=== PATIENT | male | born 1980 | race African-American/Black ===

== ENCOUNTER 2018-05-23 12:48 | Inpatient (IN) | payer MEDICAID ==
[~2018-05-23] VITALS: Ht 193 cm; Wt 135.7 kg
[2018-05-23] MEDS ORDERED: INDOCIN75 MG ORAL (12:59)
[2018-05-23] MEDS ORDERED: JANUVIA25 MG ORAL (12:59)
[2018-05-23] MEDS ORDERED: LISINOPRIL20 MG ORAL (12:59)
[2018-05-23] MEDS ORDERED: GABAPENTIN600 MG ORAL (12:59)
[2018-05-23] MEDS ORDERED: HYDRALAZINE HCL50 MG ORAL (12:59)
[2018-05-23] MEDS ORDERED: METOPROLOL TAR100 MG ORAL (12:59)
[2018-05-23] MEDS ORDERED: TRIAMTERENE-HC1 EAC6 ORAL (12:59)
[2018-05-23 13:02] VITALS: BP 122/70
[2018-05-23] MEDS ORDERED: Meclizine 25mg tab ORAL ONE (13:30)
[2018-05-23 13:34] LABS: EOSINOPHILS % (AUTO) 0.6 % (0.0-3.0); HEMATOCRIT 33.6 % (42.0-52.0); HEMOGLOBIN 11.2 G/DL (14.2-18.0); LYMPHOCYTES % (AUTO) 27.1 % (20.0-45.0); MEAN CORPUSCULAR VOLUME 87 FL (80-99); NEUTROPHILS % (AUTO) 64.3 % (45.0-75.0); PLATELET COUNT 356 K/UL (150-450); RED BLOOD COUNT 3.84 M/UL (4.70-6.10); RED CELL DISTRIBUTION WIDTH 12.2 % (11.6-14.8); WHITE BLOOD COUNT 7.8 K/UL (4.8-10.8)
--- NOTE | 2018-05-23 13:44 | Diagnostic Imaging Report ---
Indication: Dyspnea Comparison: None A single view chest radiograph was obtained. Findings: Cardiomediastinal appearance is within normal limits for age. Pulmonary vascularity is appropriate. The diaphragmatic contour is smooth and costophrenic angles are sharp. No pleural effusions are identified. The bones are unremarkable. Impression: No acute findings
[2018-05-23 14:02] LABS: ANION GAP 8 mmol/L (5-15); BLOOD UREA NITROGEN 32 mg/dL (7-18); CALCIUM 8.6 MG/DL (8.5-10.1); CARBON DIOXIDE 29 MMOL/L (21-32); CHLORIDE 105 MMOL/L (98-107); CREATININE 2.5 MG/DL (0.55-1.30); POTASSIUM 4.2 MMOL/L (3.5-5.1); SODIUM 141 MMOL/L (136-145)
--- NOTE | 2018-05-23 14:02 | Emergency Room Report ---
History of Present Illness General Chief Complaint: Dizziness Source: Patient (Azalea Torrez DO) Present Illness HPI This patient presents emergency department at the instruction of his primary care physician, Dr. Severino. The patient has had a week and a half of vertigo- like symptoms. Patient states that he has been "dizzy." He states that the room is spinning. He states that his symptoms are worse when he is standing. He was evaluated last week at [facility] in [place]. He states that he was admitted overnight. He was put on blood pressure medications. He states that the symptoms continued and he followed up with his primary care physician Dr. Severino who sent him to the ED for further evaluation. The patient states he did have some nausea vomiting over 1 weekend but states he has had no further vomiting. He states that he is imbalanced and will run into crain and has gait disturbance. He denies headache. He denies blurry vision. He denies weakness. He denies feeling or numbness. He has no other complaints. (Azalea Torrez DO) Allergies: Coded Allergies: No Known Allergies (Unverified , 05/23/18) Patient History Past Medical History: see triage record, DM, HTN Social History: Denies: smoking, alcohol use, drug use Reviewed Nursing Documentation: PMH: Agreed; PSxH: Agreed (Azalea Torrez DO) Nursing Documentation-PMH Past Medical History: No History, Except For Hx Hypertension: Yes Hx Diabetes: Yes (Azalea Torrez DO) Review of Systems All Other Systems: negative except mentioned in HPI (Azalea TorrezJoseph ) Physical Exam Vital Signs Date Time Temp Pulse Resp B/P (MAP) Pulse Ox O2 Delivery O2 Flow Rate FiO2 05/23/18 12:53 98.3 80 18 122/70 95 Room Air 98.2 Sp02 EP Interpretation: reviewed, normal General Appearance: no apparent distress, alert, GCS 15, non-toxic Head: normocephalic, atraumatic Eyes: bilateral eye normal inspection, bilateral eye PERRL ENT: hearing grossly normal, normal pharynx, no angioedema, normal voice Neck: full range of motion, supple/symm/no masses Respiratory: chest non-tender, lungs clear, normal breath sounds, no respiratory distress, no retraction, no accessory muscle use, speaking full sentences Cardiovascular #1: regular rate, rhythm, no edema Gastrointestinal: normal bowel sounds, non tender, soft, non-distended, no guarding, no rebound Rectal: deferred Musculoskeletal: back normal, gait/station normal, normal range of motion, non- tender, calf tenderness Neurologic: alert, oriented x3, responsive, motor strength/tone normal, sensory intact, speech normal Psychiatric: judgement/insight normal, memory normal, mood/affect normal, no suicidal/homicidal ideation Skin: normal color, no rash, warm/dry, well hydrated (Azalea Torrez DO) Medical Decision Making Diagnostic Impression: Primary Impression: Vertigo Additional Impressions: Basal ganglia infarction Renal insufficiency ER Course This patient has a physical exam at presentation consistent with vertigo. Other considerations include labyrinthitis, Mnire's disease, central vertigo. The patient's symptoms are short and episodic and have been positional. Given the length of symptoms, I did obtain an MRI brain which is pending at the time of this dictation. Pt turned over to Dr. Randhawa Laboratory Tests Test 05/23/18 13:16 White Blood Count 7.8 K/UL (4.8-10.8) Red Blood Count 3.84 M/UL (4.70-6.10) L Hemoglobin 11.2 G/DL (14.2-18.0) L Hematocrit 33.6 % (42.0-52.0) L Mean Corpuscular Volume 87 FL (80-99) Mean Corpuscular Hemoglobin 29.2 PG (27.0-31.0) Mean Corpuscular Hemoglobin Concent 33.4 G/DL (32.0-36.0) Red Cell Distribution Width 12.2 % (11.6-14.8) Platelet Count 356 K/UL (150-450) Mean Platelet Volume 5.5 FL (6.5-10.1) L Neutrophils (%) (Auto) 64.3 % (45.0-75.0) Lymphocytes (%) (Auto) 27.1 % (20.0-45.0) Monocytes (%) (Auto) 7.0 % (1.0-10.0) Eosinophils (%) (Auto) 0.6 % (0.0-3.0) Basophils (%) (Auto) 1.0 % (0.0-2.0) Sodium Level 141 MMOL/L (136-145) Potassium Level 4.2 MMOL/L (3.5-5.1) Chloride Level 105 MMOL/L (98-107) Carbon Dioxide Level 29 MMOL/L (21-32) Anion Gap 8 mmol/L (5-15) Blood Urea Nitrogen 32 mg/dL (7-18) H Creatinine 2.5 MG/DL (0.55-1.30) H Estimate Glomerular Filtration Rate 35.8 mL/min (>60) Glucose Level 84 MG/DL (74-106) Calcium Level 8.6 MG/DL (8.5-10.1) Total Bilirubin Pending Aspartate Amino Transferase (AST) Pending Alanine Aminotransferase (ALT) Pending Alkaline Phosphatase Pending Total Creatine Kinase Pending Creatine Kinase MB Pending Troponin I 0.006 ng/mL (0.000-0.056) Total Protein Pending Albumin Pending Globulin Pending (Azalea Torrez DO) ER Course Hospital Course 37-year-old male presents ED with dizziness times one week Clinical course Patient initially seen and evaluated by Dr Veronica; please see her note for full history and physical labs reviewed- Cr 2.5, troponins negative, no leukocytosis, Hb/Hct stable MRI Brain - acute CVA R basal ganglia Discussed findings with the patient. Patient states he's been having dizziness times one week. Admitted last week to [facility] and discharged after 1 day. She notes no slurred speech or facial droop or motor weakness. Stroke scale is 0. Discussed case with stroke team at [facility]; they agree that this is not large vessel disease and patient is out of window for thrombolytic therapy given symptoms started 6 days ago Discussed case with PMD Dr. Chip Casillas; he agrees that patient should be admitted Given aspirin in ED. Case discussed with Dr. Delarosa and he agreed to accept the patient to his service for further care and support I. I feel this is a highly complex case requiring extensive working including EKG/Rhythm strip, Xray/CT/US, Blood/urine lab work, repeat exams while in ED, and administration of strong opiates/narcotics for pain control, admission to hospital or close patient follow up. Diagnosis - vertigo, basal ganglia infarction, renal insufficiency admitted to telemetry in serious condition Labs Test 05/23/18 13:16 05/23/18 13:45 05/23/18 14:34 White Blood Count 7.8 K/UL (4.8-10.8) Red Blood Count 3.84 M/UL (4.70-6.10) Hemoglobin 11.2 G/DL (14.2-18.0) Hematocrit 33.6 % (42.0-52.0) Mean Corpuscular Volume 87 FL (80-99) Mean Corpuscular Hemoglobin 29.2 PG (27.0-31.0) Mean Corpuscular Hemoglobin Concent 33.4 G/DL (32.0-36.0) Red Cell Distribution Width 12.2 % (11.6-14.8) Platelet Count 356 K/UL (150-450) Mean Platelet Volume 5.5 FL (6.5-10.1) Neutrophils (%) (Auto) 64.3 % (45.0-75.0) Lymphocytes (%) (Auto) 27.1 % (20.0-45.0) Monocytes (%) (Auto) 7.0 % (1.0-10.0) Eosinophils (%) (Auto) 0.6 % (0.0-3.0) Basophils (%) (Auto) 1.0 % (0.0-2.0) Sodium Level 141 MMOL/L (136-145) Potassium Level 4.2 MMOL/L (3.5-5.1) Chloride Level 105 MMOL/L (98-107) Carbon Dioxide Level 29 MMOL/L (21-32) Anion Gap 8 mmol/L (5-15) Blood Urea Nitrogen 32 mg/dL (7-18) Creatinine 2.5 MG/DL (0.55-1.30) Estimat Glomerular Filtration Rate 35.8 mL/min (>60) Glucose Level 84 MG/DL (74-106) Calcium Level 8.6 MG/DL (8.5-10.1) Total Bilirubin 0.8 MG/DL (0.2-1.0) Aspartate Amino Transf (AST/SGOT) 23 U/L (15-37) Alanine Aminotransferase (ALT/SGPT) 25 U/L (12-78) Alkaline Phosphatase 69 U/L (46-116) Total Creatine Kinase 282 U/L (26-308) Creatine Kinase MB 3.3 NG/ML (0.0-3.6) Creatine Kinase MB Relative Index 1.1 Troponin I 0.006 ng/mL (0.000-0.056) Total Protein 7.0 G/DL (6.4-8.2) Albumin 3.0 G/DL (3.4-5.0) Globulin 4.0 g/dL Albumin/Globulin Ratio 0.8 (1.0-2.7) Prothrombin Time 10.1 SEC (9.30-11.50) Prothromb Time International Ratio 1.0 (0.9-1.1) Activated Partial Thromboplast Time 27 SEC (23-33) Urine Color Pale yellow Urine Appearance Clear Urine pH 5 (4.5-8.0) Urine Specific [place] 1.015 (1.005-1.035) Urine Protein 4+ (NEGATIVE) Urine Glucose (UA) 1+ (NEGATIVE) Urine Ketones Negative (NEGATIVE) Urine Blood Negative (NEGATIVE) Urine Nitrite Negative (NEGATIVE) Urine Bilirubin Negative (NEGATIVE) Urine Urobilinogen Normal MG/DL (0.0-1.0) Urine Leukocyte Esterase Negative (NEGATIVE) Urine RBC 0-2 /HPF (0 - 0) Urine WBC 2-4 /HPF (0 - 0) Urine Squamous Epithelial Cells None /LPF (NONE/OCC) Urine Amorphous Sediment Few /LPF (NONE) Urine Bacteria Few /HPF (NONE) Urine Opiates Screen Negative (NEGATIVE) Urine Barbiturates Screen Negative (NEGATIVE) Phencyclidine (PCP) Screen Negative (NEGATIVE) Urine Amphetamines Screen Negative (NEGATIVE) Urine Benzodiazepines Screen Negative (NEGATIVE) Urine Cocaine Screen Negative (NEGATIVE) Urine Marijuana (THC) Screen Negative (NEGATIVE) (David Randhawa MD) EKG Diagnostic Results Rate: normal Rhythm: NSR ST Segments: other - NSST (Azalea Torrez DO) Rhythm Strip Diag. Results EP Interpretation: yes Rate: 70 Rhythm: NSR, no PVC's, no ectopy (Azalea Torrez DO) Chest X-Ray Diagnostic Results Chest X-Ray Diagnostic Results : Chest X-Ray Ordered: Yes # of Views/Limited/Complete: 1 View Indication: Other EP Interpretation: No Interpretation: no consolidation, no effusion, no pneumothorax, no acute cardiopulmonary disease Impression: No acute disease Electronically Signed by: Moise (Azalea Torrez DO) CT/MRI/US Diagnostic Results CT/MRI/US Diagnostic Results : Imaging Test Ordered: [facility]/MRI/US Diagnostic Results : Imaging Test Ordered: MRI Impression Acute CVA demonstrated within right external capsule region/basal ganglia and right cannon radiata as described above. 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 (David Randhawa MD) Last Vital Signs Date Time Temp Pulse Resp B/P (MAP) Pulse Ox O2 Delivery O2 Flow Rate FiO2 05/23/18 13:02 98.2 80 18 122/70 95 Room Air [facility].2 [facility] Status: improved (David Randhawa MD) Disposition: ADMITTED INPATIENT Condition: Serious Referrals: NON PHYSICIAN (PCP) Azalea Torrez Joseph May 23, 2018 14:02 David Randhawa MD May 23, 2018 19:34
[2018-05-23 14:12] LABS: ALANINE AMINOTRANSFERASE 25 U/L (12-78); ALBUMIN/GLOBULIN RATIO 0.8 (1.0-2.7); ALKALINE PHOSPHATASE 69 U/L (46-116); ASPARTATE AMINO TRANSFERASE 23 U/L (15-37); BILIRUBIN,TOTAL 0.8 MG/DL (0.2-1.0); CKMB 3.3 NG/ML (0.0-3.6); CREATINE KINASE 282 U/L (26-308)
[2018-05-23 14:50] LABS: APPEARANCE,URINE CLEAR; BILIRUBIN, URINE NEGATIVE (NEGATIVE); COLOR,URINE PALE YELLOW; GLUCOSE, URINE (UA) 1+ (NEGATIVE); KETONES,URINE NEGATIVE (NEGATIVE); LEUKOCYTE ESTERASE ,URINE NEGATIVE (NEGATIVE); NITRITE,URINE NEGATIVE (NEGATIVE); PH,URINE 5 (4.5-8.0); PROTEIN,URINE 4+ (NEGATIVE); UROBILINOGEN,URINE NORMAL MG/DL (0.0-1.0)
[2018-05-23 15:00] VITALS: BP 141/84
--- NOTE | 2018-05-23 15:30 | Diagnostic Imaging Report ---
Indication: Vertigo and dizziness Technique: The head was imaged in a 1.5 Veronica magnet. Sequences obtained include sagittal and axial T1 FLAIR, axial T2 fast spin echo with fat saturation, axial T2 FLAIR, diffusion and ADC map. Comparison: None 2 areas of diffusion restriction are demonstrated. The first is in the right external capsular region measuring about 1.7 cm. A second focus noted just above this and slightly anteriorly within the cannon radiata also measuring about 1.5 cm. Findings consistent with acute CVA. Correlate clinically. Would also consider demyelinating disease given the patient's age. However, there are other abnormal foci of T2 hyperintense signal within the cannon radiata bilaterally with a focus of ex vacuo dilatation of the right anterior horn of the lateral ventricle with cystic encephalomalacia in the caudate region from indicative of a previous infarct. IMPRESSION: Acute CVA demonstrated within right external capsule region/basal ganglia and right cannon radiata as described above. 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 Nonspecific bilateral white matter signal alteration presumably on the basis of chronic small vessel disease. Given the patient's age, would also consider demyelinating disease.
[2018-05-23 17:12] VITALS: BP 145/85
[2018-05-23] MEDS ORDERED: GABAPENTIN800 MG ORAL (17:17)
[2018-05-23] MEDS ORDERED: LANTUS SOL100 UNIT/1 SUBQ (17:18)
[2018-05-23 19:30] VITALS: BP 172/96
[2018-05-23 20:58] VITALS: BP 161/84
[2018-05-23 21:00] VITALS: BP 140/82
[2018-05-24] VITALS: BP 148/80
[2018-05-24] MEDS: HydrALAZINE 50mg tab ORAL SCH ×4 (00:15→21:57)
[2018-05-24 04:00] VITALS: BP 151/68
[2018-05-24 06:29] LABS: BASOPHILS % (AUTO) 0.9 % (0.0-2.0); EOSINOPHILS % (AUTO) 0.9 % (0.0-3.0); HEMATOCRIT 32.9 % (42.0-52.0); HEMOGLOBIN 11.1 G/DL (14.2-18.0); MEAN CORPUSCULAR VOLUME 88 FL (80-99); MONOCYTES % (AUTO) 8.2 % (1.0-10.0); PLATELET COUNT 336 K/UL (150-450); RED BLOOD COUNT 3.74 M/UL (4.70-6.10); RED CELL DISTRIBUTION WIDTH 12.1 % (11.6-14.8); WHITE BLOOD COUNT 8.5 K/UL (4.8-10.8)
[2018-05-24 06:46] LABS: ALANINE AMINOTRANSFERASE 22 U/L (12-78); ALBUMIN 2.6 G/DL (3.4-5.0); ALBUMIN/GLOBULIN RATIO 0.7 (1.0-2.7); ALKALINE PHOSPHATASE 65 U/L (46-116); ANION GAP 6 mmol/L (5-15); ASPARTATE AMINO TRANSFERASE 18 U/L (15-37); BILIRUBIN,TOTAL 0.8 MG/DL (0.2-1.0); BLOOD UREA NITROGEN 31 mg/dL (7-18); CALCIUM 8.8 MG/DL (8.5-10.1); CARBON DIOXIDE 29 MMOL/L (21-32); CHLORIDE 106 MMOL/L (98-107); CHOLESTEROL 201 MG/DL (< 200); CREATININE 2.2 MG/DL (0.55-1.30); HDL CHOLESTEROL 38 MG/DL (40-60); POTASSIUM 4.2 MMOL/L (3.5-5.1); SODIUM 141 MMOL/L (136-145); TRIGLYCERIDES 167 MG/DL (30-150)
[2018-05-24] MEDS: NovoLOG Insulin Flexpen SUBQ SCH ×4 (07:11→20:40)
[2018-05-24 08:00] VITALS: BP 155/103
--- NOTE | 2018-05-24 08:30 | Consultation ---
DATE OF CONSULTATION: 05/23/2018 CONSULTING PHYSICIAN: Prince Teague M.D. REQUESTING PHYSICIAN: Anthony Delarosa M.D. REASON FOR CONSULTATION: Acute cerebrovascular accident. HISTORY OF PRESENT ILLNESS: This is a 37-year-old male. He has had dizziness and vertiginous symptoms for the past week or two. He was seen in an outside emergency room and was admitted overnight, started on antihypertensives and discharged. Subsequently, he has had nausea, vomiting, and symptoms. He was seen in this emergency room with an abnormal MRI noted. PAST MEDICAL HISTORY: Type 2 diabetes mellitus and hypertension. SOCIAL HISTORY: Negative for smoking, alcohol, or substance abuse. MEDICATIONS: Prior to admission, reviewed and reconciled. ALLERGIES: None known. REVIEW OF SYSTEMS: Otherwise unremarkable. PHYSICAL EXAMINATION: VITAL SIGNS: Obese, blood pressure 122/70, pulse 80, and respiratory rate 18. HEENT: Conjunctivae are pink. Oropharynx clear. NECK: Supple. Jugular venous pressure normal. LUNGS: Clear. CARDIAC: Regular rhythm and rate. Normal S1, S2 with a fourth heart sound. ABDOMEN: Soft, nontender, and moderately obese. EXTREMITIES: With no edema. LABORATORY AND DIAGNOSTIC DATA: White count 7.8 and hemoglobin 11.2. Chemistry panel notable for BUN 32, creatinine 2.5, bicarb 29, sodium 141, potassium 4.2. MRI of the brain reveals right basal ganglia infarct and possible demyelination process. The EKG reveals sinus rhythm with nonspecific ST-T wave changes. IMPRESSION: 1. Cerebrovascular accident. 2. Hypertension. 3. Type 2 diabetes mellitus. 4. Obesity. 5. Renal failure - acute vs chronic. PLAN: 1. Cardiac monitoring. 2. Oral aspirin. 3. Lipid panel and statin therapy to follow. 4. Insulin coverage by sliding scale. 5. Full metabolic profile. 6. Echocardiogram. 7. Recommend neurologic consultation in this young gentleman with this early cerebrovascular disease. 8. Carotid duplex study to follow. 9. Renal ultrasound. Prince Teague M.D. : NUBIA JOB#: [id number] CC: ALEN
[2018-05-24] MEDS: Heparin 5000 units/ml inj SUBQ SCH ×2 (08:45→20:39)
[2018-05-24] MEDS: Levemir Flexpen SUBQ SCH (08:46)
[2018-05-24] MEDS ORDERED: Indomethacin 25mg cap ORAL SCH (09:00)
[2018-05-24] MEDS ORDERED: Triamterene/Hctz 37.5/25 cap ORAL SCH (09:00)
[2018-05-24] MEDS ORDERED: Lisinopril 20mg tab ORAL SCH (09:00)
--- NOTE | 2018-05-24 11:40 | Consultation ---
Consult Note Consult Note asked to eval for renal failure- This patient presents emergency department at the instruction of his primary care physician, Dr. Severino. The patient has had a week and a half of vertigo- like symptoms. Patient states that he has been "dizzy." He states that the room is spinning. He states that his symptoms are worse when he is standing. He was evaluated last week at [facility] in [place]. He states that he was admitted overnight. He was put on blood pressure medications. He states that the symptoms continued and he followed up with his primary care physician Dr. Severino who sent him to the ED for further evaluation. The patient states he did have some nausea vomiting over 1 weekend but states he has had no further vomiting. He states that he is imbalanced and will run into crain and has gait disturbance. He denies headache. He denies blurry vision. He denies weakness. He denies feeling or numbness. He has no other complaints. No Known Allergies (Unverified , 05/23/18) Past Medical History: see triage record, DM, HTN Past Medical History: No History, Except For Hx Hypertension: Yes Hx Diabetes: Yes Cholecystectomy 2 years ago Tonsilectomy as a child interviewed- examined Assessment/Plan Diabetic Nephropathy Nephrotic syndrome ( likely) Anemia IDDM HTN OOC acute CVA MR: Acute CVA demonstrated within right external capsule region/basal ganglia and right cannon radiata as described above. 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 Adjust BP meds- Keep BS in check PT OT Fish oil / Lipitor Kidney BRANDON 24 H urine for proteins per orders Richy Forrester MD May 24, 2018 11:40
[2018-05-24] MEDS ORDERED: Aspirin Baby 81mg ORAL SCH (11:45)
[2018-05-24 12:00] VITALS: BP 123/76
[2018-05-24] MEDS ORDERED: Tamsulosin 0.4mg cap ORAL SCH (12:00)
--- NOTE | 2018-05-24 15:04 | Cardiology Report ---
APPROVED REPORT EXAM: Two-dimensional and M-mode echocardiogram with Doppler and color Doppler. INDICATION CVA/TIA M-Mode DIMENSIONS IVSd2.1 (0.7-1.1cm)Left Atrium (MM)3.5 (1.6-4.0cm) LVDd4.1 (3.5-5.6cm)Aortic Root3.6 (2.0-3.7cm) PWd1.9 (0.7-1.1cm)Aortic Cusp Exc.1.7 (1.5-2.0cm) LVDs2.1 (2.5-4.0cm) PWs2.4 cm This is a 2D-Echo study with bubble study. Negative bubble study result with 2X 10cc of agitated saline injected intravenously: There is evidence for right to left shunting Normal left ventricular chamber size, systolic function and wall motion. Left ventricular ejection fraction estimated to be 65-70 %. Moderate left ventricular hypertrophy. Anterior Echo-free space, may be due to pericardial fat or effusion. All other cardiac chamber sizes are within normal limits. Focal aortic valve sclerosis with adequate cusp excursion. Thickened mitral valve leaflets with normal excursion. Mitral annulus and aortic root calcification. Pulmonic valve not well visualized. Normal tricuspid valve structure. IVC at normal size with physiologic collapse. A color flow and spectral Doppler study was performed and revealed: Trace mitral regurgitation. Mitral inflow indicates pseudonormal left ventricular diastolic function. Trace tricuspid regurgitation. Tricuspid systolic velocities suggests peak right ventricular systolic pressure of 19 mmHg.
--- NOTE | 2018-05-24 15:44 | Cardiology Report ---
APPROVED REPORT EKG Measurement Heart [id number] Normal sinus rhythm Prolonged QT Abnormal ECG
--- NOTE | 2018-05-24 15:59 | Diagnostic Imaging Report ---
Indication: Acute renal failure Technique: Grayscale and duplex images of the kidneys, retroperitoneum, and bladder were obtained. Comparison: none Findings: Right kidney measures 11.3 cm in length. Left kidney measures 11.9 cm in length. Both kidneys demonstrate normal echogenicity. No hydronephrosis. Possible calcifications are seen in the left renal sinus. Normal inferior vena cava. Bladder is nondistended, volume calculated as 63 mL. Prostate volume is 19 mL. Impression: Possible nonobstructive left renal calculi Otherwise unremarkable exam.
[2018-05-24 16:00] VITALS: BP 132/71
[2018-05-24] MEDS: Tamsulosin 0.4mg cap ORAL SCH (17:42)
--- NOTE | 2018-05-24 18:58 | Consultation ---
Consult Note Consult Note NEUROLOGY CONSULTATION: Full note dictated #[id number] 37 y/o, RH, BM with ~ 5 year H/O HBP, DM, Diabetic neuropathy, right leg weakness attributed to neuropathy, disability related to his DM as a result of which he stopped working a few years ago. For about a little more than a week he has felt unsteady on his feet. This unsteadiness is only present when he stands or walks but is absent if he sits in bed or lies in bed. He was seen for this problem at [facility] in [place] he was told the problem was due to his high BP and was sent home. He presented to the [facility] for worsening of the problem. On evaluation his BPs were as high as the 170s systolic. A MRI of the brain was done and revealed an acute infarct an the right external capsule and basal ganglia region, and in the right cannon radiata. An old right caudate infarct was also seen. Bilateral chronic small vessel disease was also seen. ON EXAM: Left VII central. G 4/5 in left FE/IP/TE G 5-/5 in right FE/IP/TE Clumsy F to N and H to S on left. Left paretic gait. Global areflexia with extensor left plantar. IMPRESSION: 1. Unsteadiness on feet due to acute right brain strokes with left paresis. 2. Hypertensive/diabetic/dyslipidemic CVD. REC: 1. BP control - goal <120/80 2. Diabetes control - goal HB A1C <6%. 3. Lipid control - LDL goal <70. 4. Plavix 75 mg q day. Can stop ASA. 5. PT/OT/SLT. 6. Acute rehab. Isaías Lin M.D., M.S.P.ISAÍAS KEITA May 24, 2018 18:58
--- NOTE | 2018-05-24 19:15 | History and Physical Report ---
DATE OF ADMISSION: 05/23/2018 HISTORY OF PRESENT ILLNESS: This is a 37-year-old male, who had been having dizzy symptoms and vertigo for about a week. He was seen at an outside hospital and was discharged after being started on the antihypertensives. He continued to have nausea, vomiting, and dizziness. He was seen in the emergency room here at [place] and he underwent an MRI expeditiously, which showed there is evidence of an acute CVA in the right external capsule region, basal ganglia, and right coronal radiata as discussed by the ER MShiva. The acuteness was felt to be approximately in the last 6 to 8 days. X-ray of the chest was negative. The patient was admitted for further management and care. PAST MEDICAL HISTORY: Diabetes mellitus and hypertension. SOCIAL HISTORY: No alcohol or tobacco usage. HOME MEDICATIONS: Include aspirin, Neurontin, hydralazine, indomethacin, Levemir, lisinopril, meclizine, metoprolol, Januvia, and triamterene/hydrochlorothiazide. ALLERGIES: None reported. REVIEW OF SYSTEMS: Denies any headaches, hematemesis, melena, or hematochezia. PHYSICAL EXAMINATION: GENERAL: Reveals a young male. VITAL SIGNS: Blood pressure is 150/100, respirations are 18, and heart rate 85. She is afebrile. HEENT: Unremarkable. CHEST: Shows clear breath sounds bilaterally. ABDOMEN: Soft. EXTREMITIES: There is no edema. NEUROLOGIC: Nonfocal. LABORATORY DATA: Lab testing is with normal CBC and BMP. Hemoglobin 11.1. Creatinine 2.2. Hemoglobin A1c 11.7. Cholesterol is 201. LDL is 126. TSH 0.3. Albumin 3. IMPRESSION: 1. Acute cerebrovascular accident. 2. Hypertension. 3. Diabetes mellitus. 4. . DISCUSSION: Admit to the hospital. The patient needs to complete workup possibly SARAH. He will be a candidate also for outpatient polysomnography. Blood pressure control. I have already consulted Cardiology and Neurology. I will also consult Endocrinology. 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 Anthony Delarosa M.D. DR: ANTONIO JOB#: [id number] CC:
[2018-05-24 20:00] VITALS: BP 111/66
[2018-05-24] MEDS: Metoprolol Tartrate 50mg tab ORAL SCH (20:36)
[2018-05-25] VITALS: BP 108/63
--- NOTE | 2018-05-25 | Consultation ---
DATE OF CONSULTATION: 05/24/2018 NEUROLOGY CONSULTATION CONSULTING PHYSICIAN: Ronnie Lin M.D. REQUESTING PHYSICIAN: Anthony Delarosa M.D. HISTORY: Mr. Isak Drake is a 37-year-old, right-handed, black gentleman, who does have a long history of hypertension, diabetes mellitus, diabetic neuropathy, right-sided leg weakness attributed to neuropathy for numerous years, and disability related to his diabetes mellitus as a result of which he stopped working a few years ago. For a little more than a week, he has felt unsteady on his feet. His unsteadiness is only present when he stands or walks, but is absent if he sits in bed or lies in bed. He has also noticed that his left side has become weak. As a result of these problems, he did go to the [facility] in [place] a few days ago and he was told that the problem was due to his high blood pressure. He was watched there for a day and then sent home in the same state that he entered the hospital. He has since continued to have increasing problems with unsteadiness on his feet and as a result of that, he presented to the [facility] emergency room on 05/23/2018. On being evaluated in the emergency room, his blood pressures were as high as in the 170s systolic. A MRI scan of the brain was done and revealed acute infarcts in the right external capsule and basal ganglia region and in the right cannon radiata. In addition, an old right caudate infarct was also seen. In addition, bilateral chronic small-vessel disease was also noted. He has since been admitted to the hospital and this consultation was requested to evaluate and manage the patient's cerebrovascular disease. At this point in time, the patient feels relatively well. He, however, feels significantly unsteady on his feet when he stands or walks and his left side is still significantly weaker than the right. PAST MEDICAL HISTORY: Significant for high blood pressure and diabetes mellitus for the last 5 years or so, right leg weakness attributed to neuropathy, and disability related to diabetes mellitus, as a result of which, he stopped working a few years ago. FAMILY HISTORY: Both his parents have high blood pressure and diabetes mellitus. PERSONAL HISTORY: Home: He lives with his mother. 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 He is now disabled due to his diabetes. Habits: He denies use of alcohol, tobacco, or illicit drugs. PRESENT MEDICATIONS: Include Norvasc, lisinopril, metoprolol, Lipitor, Flomax, hydralazine, aspirin 162 mg daily, Protonix, clonidine, fish oil, Januvia, heparin for DVT prophylaxis, NovoLog insulin, detemir insulin, gabapentin 800 mg q.8 hours, and Tylenol p.r.n. PHYSICAL EXAMINATION: GENERAL: He is a well-developed, well-nourished, obese, black gentleman, lying in bed, and in no acute distress. VITAL SIGNS: Pulse 78/minute, blood pressure 132/71 mmHg, respirations 20/minute, temperature 98.2 degrees Fahrenheit. HEAD: Normocephalic and atraumatic. EENT: Examination benign. NECK: No neck rigidity was observed. NEUROLOGICAL EXAMINATION: MENTAL STATUS EXAMINATION: He was awake and alert. He was oriented to person, place, and time. He was able to recall 3/3 words immediately, after 1 minute and after 3 minutes on the second trial. He was able to remember Presidents Trump through [employer] Senior. His mathematical skills were minimally impaired. His visuospatial function was relatively good. SPEECH: He had no dysarthria. LANGUAGE: He had an anomia for low-frequency words. CRANIAL NERVE EXAMINATION: II: The visual crespo were intact on confrontation testing. III, IV & : The external ocular movements were full and the pupils 3 mm in diameter, equal, round, regular, and reactive to light. V: He had normal facial sensations and the temporales, masseters, and pterygoids functioned normally. VII: He had a left seventh central facial paresis. VIII: He was able to hear well bilaterally and had no nystagmus. IX: The palate moved symmetrically on phonation. X: He had no hoarseness of voice. XI: The sternocleidomastoids and trapezii functioned normally. XII: The tongue was in the midline without any fasciculations or atrophy. MOTOR SYSTEM: The tone was normal in all four extremities. Examination of muscle mass revealed no focal wasting. Examination of power revealed G 5/5 power except for G 4/5 power in the left finger extensors, iliopsoas and toe extensors, and G 5-/5 power in the right finger extensors, iliopsoas, and toe extensors. SENSORY EXAMINATION: He had intact sensations to pinprick and light touch, but complained of subjective alteration to both those modalities in a knee-high stocking distribution. REFLEXES: 0 at the biceps, triceps, brachioradialis, knees, and ankles. The plantar response was flexor on the right and extensor on the left. COORDINATION: Bxsxsy-zr-gvjq and yrth-wt-bapb testing were significantly clumsier on the left side compared to the right. STANCE: He stood up with a wide base. GAIT: He walked with a wide based left paretic gait. DIAGNOSTIC IMPRESSION: 1. Mr. Isak Drake is a 37-year-old, right-handed, black gentleman, with a past history of hypertension, diabetes mellitus, diabetic neuropathy, right leg weakness attributed to neuropathy, and disability related to his diabetes mellitus, who approximately a week ago felt unsteadier on his feet and noticed that this unsteadiness was only present when he stood and walked, but was absent if he sat or lay in bed. He was seen for this problem at [facility] in [place] and was told that the problem was related to his high blood pressure and his blood pressure was controlled and he was sent home. He then presented to the [facility] emergency room for worsening of his problem and on evaluation, his blood pressures were as high as 170 systolic. He has since been admitted to the hospital. 2. On neurological examination, at this time, he does have mild problems with memory, higher cognitive function, and language. He also has a left seventh central facial paresis, left hemiparesis, minor right finger extensor, iliopsoas and toe extensor weakness, significant clumsiness on lpwdhy-pw-actx and yfpu-ph-lhbl testing on the left side compared to the right, a wide-based stance, and a wide-based left paretic gait. His deep tendon reflexes are globally absent and he has an extensor plantar response on the left side. 3. The MRI scan of the brain performed at [facility] on 05/23/2018 revealed an acute infarct in the right external capsule and basal ganglion region and another acute infarct in the right cannon radiata. In addition, an old right caudate infarct was also seen, and bilateral chronic small-vessel disease of an extensive nature was also seen. 4. Laboratory data obtained thus far have revealed that he is mildly anemic with a hemoglobin of 11.2 G. His chemistry panel reveals a BUN elevated to 31, creatinine elevated to 2.2, blood glucose elevated to 188, and hemoglobin A1c elevated to 11.7%. His lipid panel reveals triglycerides elevated to 167, total cholesterol of 201 with an LDL of 126, and an HDL of 38. His vitamin B12 level is normal at 678. His folic acid level is normal at 16.7 and his TSH is low at 0.30. His urine toxicology screen is benign. His INR is at 1.0. His urinalysis is benign and his RPR serology is pending. 5. The patient's history, neurological examination, laboratory data, and imaging studies are most compatible with unsteadiness on his feet due to acute right brain strokes causing the patient to have a left hemiparesis. 6. The most likely etiology for the patient's cerebrovascular disease is hypertensive, diabetic, dyslipidemic, cerebrovascular disease. RECOMMENDATIONS: 1. The patient was given an explanation of the above-mentioned findings. 2. His blood pressure should be controlled and his blood pressure goal should be equal to or less than 120/80 mmHg at all times. 3. The patient's diabetes should be well controlled with his hemoglobin A1c goal being close to 6%. 4. His lipids should be controlled with an LDL goal of less than 70. 5. His antiplatelet agent should be changed from aspirin to Plavix 75 mg daily to give him added secondary stroke prevention benefits. 6. The patient should be started on a course of physical, occupational, speech, and language therapy to rehabilitate him. 7. The patient would be an excellent candidate for acute rehabilitation in the near future. Thank you for entrusting me with the care of Mr. Drake. I shall follow him with you. Ronnie Lin M.D., M.S.P.H. : ROBERT JOB#: [id number] [email or web address]
--- NOTE | 2018-05-25 03:30 | Progress Note ---
DATE: 05/24/2018 CARDIOLOGY PROGRESS NOTE SUBJECTIVE: The patient continues to have left-sided weakness. He was seen by neurologist, who felt that there has been acute right-sided cerebrovascular insult. The patient had an echocardiogram today revealing normal ejection fraction with a negative bubble study. The patient's monitored rhythm is sinus with no evidence of arrhythmias since admission. OBJECTIVE: VITALS: Blood pressure 111/66, pulse 77, and respirations 17. LUNGS: Clear. CARDIAC: Regular. Normal S1, S2. ABDOMEN: Soft. EXTREMITIES: No edema. NEUROLOGIC: Left weakness and ataxia. IMPRESSION: 1. Acute cerebrovascular accident. 2. Multi-infarct cerebrovascular disease. 3. Hypertensive heart disease. 4. Type 2 diabetes mellitus. 5. Dyslipidemia. 6. No evidence of cardioembolic source or cardiac arrhythmias. PLAN: 1. Anti-platelet therapy. 2. Anti-lipid therapy with statin. 3. Optimize antihypertensive regimen. 4. Acute rehabilitation evaluation. 5. Continue cardiac monitoring. 6. Follow-up cardio duplex study. Prince Teague M.D. DR: CELSO JOB#: [id number] CC:
[2018-05-25 04:00] VITALS: BP 124/84
[2018-05-25] MEDS: HydrALAZINE 50mg tab ORAL SCH (05:36)
[2018-05-25] MEDS: NovoLOG Insulin Flexpen SUBQ SCH ×7 (05:37→21:24)
[2018-05-25] MEDS: Levemir Flexpen SUBQ SCH (05:40)
[2018-05-25 07:33] LABS: BASOPHILS % (AUTO) 1.1 % (0.0-2.0); EOSINOPHILS % (AUTO) 1.5 % (0.0-3.0); HEMATOCRIT 30.5 % (42.0-52.0); HEMOGLOBIN 10.2 G/DL (14.2-18.0); LYMPHOCYTES % (AUTO) 44.2 % (20.0-45.0); MEAN CORPUSCULAR VOLUME 88 FL (80-99); MONOCYTES % (AUTO) 7.6 % (1.0-10.0); NEUTROPHILS % (AUTO) 45.6 % (45.0-75.0); PLATELET COUNT 299 K/UL (150-450); RED BLOOD COUNT 3.45 M/UL (4.70-6.10); RED CELL DISTRIBUTION WIDTH 11.9 % (11.6-14.8); WHITE BLOOD COUNT 6.6 K/UL (4.8-10.8)
[2018-05-25 08:00] VITALS: BP 127/75
[2018-05-25 08:02] LABS: ALANINE AMINOTRANSFERASE 24 U/L (12-78); ALBUMIN 2.6 G/DL (3.4-5.0); ALBUMIN/GLOBULIN RATIO 0.7 (1.0-2.7); ALKALINE PHOSPHATASE 67 U/L (46-116); ANION GAP 6 mmol/L (5-15); ASPARTATE AMINO TRANSFERASE 15 U/L (15-37); BILIRUBIN,TOTAL 0.7 MG/DL (0.2-1.0); BLOOD UREA NITROGEN 37 mg/dL (7-18); CALCIUM 8.9 MG/DL (8.5-10.1); CARBON DIOXIDE 27 MMOL/L (21-32); CHLORIDE 105 MMOL/L (98-107); CREATINE KINASE 178 U/L (26-308); CREATININE 2.9 MG/DL (0.55-1.30); FERRITIN 265 NG/ML (8-388); GAMMA GLUTAMYL TRANSPEPTIDASE 14 U/L (5-85); PHOSPHORUS 4.2 MG/DL (2.5-4.9); POTASSIUM 4.7 MMOL/L (3.5-5.1); SODIUM 138 MMOL/L (136-145)
[2018-05-25 08:17] LABS: % IRON SATURATION 22 % (15-50); IRON 42 ug/dL (50-175); TOTAL IRON BINDING CAPACITY 190 ug/dL (250-450)
[2018-05-25] MEDS ORDERED: Lisinopril 20mg tab ORAL SCH (09:00)
--- NOTE | 2018-05-25 09:11 | Pulmonology Progress Note ---
Assessment/Plan Assessment/Plan IMPRESSION: 1. Acute cerebrovascular accident. 2. Hypertension. 3. Diabetes mellitus. 4. Nephropathy DISCUSSION: He is a candidate also for outpatient polysomnography. Blood pressure control. Seen by Cardiology and Neurology and Nephrology. 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 BP control Added Plavix Diabetes control IV hydration DC planning Subjective Interval Events: Feeling better Constitutional: Reports: no symptoms HEENT: Repors: no symptoms Respiratory: Reports: no symptoms Cardiovascular: Reports: no symptoms Gastrointestinal/Abdominal: Reports: no symptoms Genitourinary: Reports: no symptoms Neurologic: Reports: other - dizziness Psychiatric: Reports: no symptoms Skin: Reports: no symptoms Allergies: Coded Allergies: No Known Allergies (Unverified , 05/23/18) Objective Last 24 Hour Vital Signs Date Time Temp Pulse Resp B/P (MAP) Pulse Ox O2 Delivery O2 Flow Rate FiO2 05/25/18 08:00 98.0 78 22 127/75 (92) 98 98.0 05/25/18 05:36 124/84 05/25/18 04:00 97.9 78 18 124/84 (97) 98 97.9 05/25/18 03:57 76 05/25/18 00:00 97.5 72 19 108/63 (78) 97 97.5 05/24/18 23:54 72 05/24/18 21:57 125/68 05/24/18 21:00 Room Air 05/24/18 20:36 77 111/66 05/24/18 20:00 97.3 77 17 111/66 (81) 97 97.3 05/24/18 19:38 74 05/24/18 16:00 77 05/24/18 16:00 98.2 78 20 132/71 (91) 96 98.2 05/24/18 15:49 132/74 05/24/18 12:16 80 155/103 05/24/18 12:00 81 05/24/18 12:00 98.6 80 20 123/76 (92) 99 98.6 Intake and Output 05/24/18 05/25/18 19:00 07:00 Intake Total 720 ml Balance 720 ml Intake Oral 720 ml # Voids 2 General Appearance: no acute distress HEENT: normocephalic Respiratory/Chest: chest wall non-tender, lungs clear Cardiovascular: normal peripheral pulses, normal rate Abdomen: normal bowel sounds, soft, non tender Extremities: no cyanosis Laboratory Tests 05/25/18 06:40: White Blood Count 6.6, Red Blood Count 3.45L, Hemoglobin 10.2L, Hematocrit 30.5L , Mean Corpuscular Volume 88, Mean Corpuscular Hemoglobin 29.6, Mean Corpuscular Hemoglobin Concent 33.5, Red Cell Distribution Width 11.9, Platelet Count 299, Mean Platelet Volume 5.7L, Neutrophils (%) (Auto) 45.6, Lymphocytes ( %) (Auto) 44.2, Monocytes (%) (Auto) 7.6, Eosinophils (%) (Auto) 1.5, Basophils (%) (Auto) 1.1, Sodium Level 138, Potassium Level 4.7, Chloride Level 105, Carbon Dioxide Level 27, Anion Gap 6, Blood Urea Nitrogen 37H, Creatinine 2.9H, Estimat Glomerular Filtration Rate 30.2, Glucose Level 229H, Uric Acid 7.1, Calcium Level 8.9, Phosphorus Level 4.2, Magnesium Level 2.2, Iron Level 42L, Total Iron Binding Capacity 190L, Percent Iron Saturation 22, Unsaturated Iron Binding 148, Ferritin 265, Total Bilirubin 0.7, Gamma Glutamyl Transpeptidase 14 , Aspartate Amino Transf (AST/SGOT) 15, Alanine Aminotransferase (ALT/SGPT) 24, Alkaline Phosphatase 67, Total Creatine Kinase 178, Troponin I 0.009, Pro-B- Type Natriuretic Peptide 471H, Total Protein 6.1L, Albumin 2.6L, Globulin 3.5, Albumin/Globulin Ratio 0.7L, Vitamin B12 Level 582, Folate 14.4, Thyroid Stimulating Hormone (TSH) 0.619, Free Thyroxine 1.01, Free Triiodothyronine 2.2L Current Medications Medications (Trade) Dose Ordered Sig/Jessika Route PRN Reason Start Time Stop Time Status Last Admin Dose Admin Acetaminophen (Tylenol) 650 mg Q4H PRN ORAL Mild Pain/Temp > 100.5 05/23/18 21:45 06/22/18 21:44 Amlodipine Besylate (Norvasc) 10 mg DAILY ORAL 05/25/18 09:00 06/24/18 08:59 Atorvastatin Calcium (Lipitor) 40 mg BEDTIME ORAL 05/25/18 21:00 06/24/18 20:59 Clonidine HCl (Catapres Tab) 0.1 mg Q4H PRN ORAL bp 160 syst & 100 diast 05/24/18 11:30 06/23/18 11:29 Clopidogrel Bisulfate (Plavix) 75 mg DAILY ORAL 05/25/18 09:00 06/24/18 08:59 Dextrose (Dextrose 50%) 25 ml STAT PRN IV Hypoglycemia 05/25/18 07:00 06/24/18 06:59 Dextrose (Dextrose 50%) 50 ml STAT PRN IV Hypoglycemia 05/25/18 07:00 06/24/18 06:59 Fish Oil (Fish Oil) 1,000 mg BID ORAL 05/24/18 11:30 06/23/18 11:29 05/24/18 17:42 Gabapentin (Neurontin) 800 mg Q8HR ORAL 05/23/18 22:00 06/22/18 21:59 05/25/18 05:35 Heparin Sodium (Porcine) (Heparin 5000 units/ml) 5,000 units EVERY 12 HOURS SUBQ 05/24/18 09:00 06/23/18 08:59 05/24/18 20:39 Hydralazine HCl (Apresoline) 50 mg Q8HR ORAL 05/25/18 14:00 06/23/18 00:00 Insulin Aspart (NovoLOG) BEFORE MEALS AND HS SUBQ 05/24/18 06:30 06/23/18 06:29 05/25/18 05:37 Insulin Aspart (NovoLOG) 8 units NOVOTIAC SUBQ 05/25/18 07:00 06/24/18 06:59 05/25/18 08:09 Insulin Detemir (Levemir) 46 units ACBREAKFAST SUBQ 05/26/18 06:30 06/23/18 06:29 Metoprolol Tartrate (Lopressor) 50 mg EVERY 12 HOURS ORAL 05/24/18 21:00 06/22/18 21:59 05/24/18 20:36 Pantoprazole (Protonix) 40 mg DAILY ORAL 05/24/18 11:45 06/23/18 11:44 05/24/18 12:16 Sitagliptin Phosphate (Januvia) 100 mg DAILY ORAL 05/24/18 09:00 06/23/18 08:59 05/24/18 08:44 Tamsulosin HCl (Flomax) 0.4 mg BID ORAL 05/24/18 18:00 06/23/18 17:59 05/24/18 17:42 Anthony Delarosa MD May 25, 2018 09:11
[2018-05-25] MEDS: Tamsulosin 0.4mg cap ORAL SCH ×2 (09:40→18:02)
[2018-05-25] MEDS: Metoprolol Tartrate 50mg tab ORAL SCH ×2 (09:40→21:21)
[2018-05-25] MEDS: Heparin 5000 units/ml inj SUBQ SCH ×2 (09:44→21:24)
[2018-05-25 12:00] VITALS: BP 125/71
[2018-05-25] MEDS ORDERED: HydrALAZINE 50mg tab ORAL SCH (14:00)
[2018-05-25 16:00] VITALS: BP 114/80
--- NOTE | 2018-05-25 16:27 | Neurology Progress Note ---
Interim History Interim History Interim History Mr. Drake feels better. The mind is clearer. He feels stronger. He is steadier on his feet. He denies any new neurologic symptoms. Review of Systems Neuro Review of Systems Benign. Objective Physical Exam Last Vital Signs Date Time Temp Pulse Resp B/P (MAP) Pulse Ox O2 Delivery O2 Flow Rate FiO2 05/25/18 14:30 125/71 05/25/18 12:00 97.9 76 21 96 97.9 05/25/18 08:20 Room Air Laboratory Tests Test 05/25/18 06:40 White Blood Count 6.6 K/UL (4.8-10.8) Red Blood Count 3.45 M/UL (4.70-6.10) L Hemoglobin 10.2 G/DL (14.2-18.0) L Hematocrit 30.5 % (42.0-52.0) L Mean Corpuscular Volume 88 FL (80-99) Mean Corpuscular Hemoglobin 29.6 PG (27.0-31.0) Mean Corpuscular Hemoglobin Concent 33.5 G/DL (32.0-36.0) Red Cell Distribution Width 11.9 % (11.6-14.8) Platelet Count 299 K/UL (150-450) Mean Platelet Volume 5.7 FL (6.5-10.1) L Neutrophils (%) (Auto) 45.6 % (45.0-75.0) Lymphocytes (%) (Auto) 44.2 % (20.0-45.0) Monocytes (%) (Auto) 7.6 % (1.0-10.0) Eosinophils (%) (Auto) 1.5 % (0.0-3.0) Basophils (%) (Auto) 1.1 % (0.0-2.0) Sodium Level 138 MMOL/L (136-145) Potassium Level 4.7 MMOL/L (3.5-5.1) Chloride Level 105 MMOL/L (98-107) Carbon Dioxide Level 27 MMOL/L (21-32) Anion Gap 6 mmol/L (5-15) Blood Urea Nitrogen 37 mg/dL (7-18) H Creatinine 2.9 MG/DL (0.55-1.30) H Estimat Glomerular Filtration Rate 30.2 mL/min (>60) Glucose Level 229 MG/DL (74-106) H Uric Acid 7.1 MG/DL (2.6-7.2) Calcium Level 8.9 MG/DL (8.5-10.1) Phosphorus Level 4.2 MG/DL (2.5-4.9) Magnesium Level 2.2 MG/DL (1.8-2.4) Iron Level 42 ug/dL (50-175) L Total Iron Binding Capacity 190 ug/dL (250-450) L Percent Iron Saturation 22 % (15-50) Unsaturated Iron Binding 148 ug/dL (112-346) Ferritin 265 NG/ML (8-388) Total Bilirubin 0.7 MG/DL (0.2-1.0) Gamma Glutamyl Transpeptidase 14 U/L (5-85) Aspartate Amino Transf (AST/SGOT) 15 U/L (15-37) Alanine Aminotransferase (ALT/SGPT) 24 U/L (12-78) Alkaline Phosphatase 67 U/L (46-116) Total Creatine Kinase 178 U/L (26-308) Troponin I 0.009 ng/mL (0.000-0.056) Pro-B-Type Natriuretic Peptide 471 pg/mL (0-125) H Total Protein 6.1 G/DL (6.4-8.2) L Albumin 2.6 G/DL (3.4-5.0) L Globulin 3.5 g/dL Albumin/Globulin Ratio 0.7 (1.0-2.7) L Vitamin B12 Level 582 PG/ML (193-986) Folate 14.4 NG/ML (8.6-58.9) Thyroid Stimulating Hormone (TSH) 0.619 uiU/mL (0.358-3.740) Free Thyroxine 1.01 NG/DL (0.76-1.46) Free Triiodothyronine 2.2 pg/mL (2.3-4.2) L Neurologic Exam Objective PHYSICAL EXAMINATION: GENERAL: He is a well-developed, well-nourished, obese, black gentleman, lying in bed, and in no acute distress. HEAD: Normocephalic and atraumatic. EENT: Examination benign. NECK: No neck rigidity was observed. NEUROLOGICAL EXAMINATION: MENTAL STATUS EXAMINATION: He was awake and alert. He was oriented to person, place, and time. He was able to recall 3/3 words immediately, after 1 minute and after 3 minutes. He was able to remember Presidents Trump through [employer] Senior. His mathematical skills were minimally impaired. His visuospatial function was relatively good. SPEECH: He had no dysarthria. LANGUAGE: He had an anomia for low-frequency words. CRANIAL NERVE EXAMINATION: II: The visual crespo were intact on confrontation testing. III, IV & : The external ocular movements were full and the pupils 3 mm in diameter, equal, round, regular, and reactive to light. V: He had normal facial sensations and the temporales, masseters, and pterygoids functioned normally. VII: He had a left seventh central facial paresis. VIII: He was able to hear well bilaterally and had no nystagmus. IX: The palate moved symmetrically on phonation. X: He had no hoarseness of voice. XI: The sternocleidomastoids and trapezii functioned normally. XII: The tongue was in the midline without any fasciculations or atrophy. MOTOR SYSTEM: The tone was normal in all four extremities. Examination of muscle mass revealed no focal wasting. Examination of power revealed G 5/5 power except for G 4++/5 power in the left finger extensors, iliopsoas and toe extensors. SENSORY EXAMINATION: He had intact sensations to pinprick and light touch, but complained of subjective alteration to both those modalities in a knee-high stocking distribution. REFLEXES: 0 at the biceps, triceps, brachioradialis, knees, and ankles. The plantar response was flexor on the right and extensor on the left. COORDINATION: Beblqe-jt-ornv and wehp-ed-fsbe testing were significantly clumsier on the left side compared to the right. STANCE: He stood up with a wide base. GAIT: He walked with a wide based gait. Impression/Recommendations Diagnostic Impression 1. Mr. Isak Drake is a 37-year-old, right-handed, black gentleman, with a past history of hypertension, diabetes mellitus, diabetic neuropathy, right leg weakness attributed to neuropathy, and disability related to his diabetes mellitus, who approximately a week ago felt unsteadier on his feet and noticed that this unsteadiness was only present when he stood and walked, but was absent if he sat or lay in bed. He was seen for this problem at [facility] in [place] and was told that the problem was related to his high blood pressure and his blood pressure was controlled and he was sent home. He then presented to the [facility] emergency room for worsening of his problem and on evaluation, his blood pressures were as high as 170 systolic. He has since been admitted to the hospital. 2. He feels better. The mind is clearer. He feels stronger. He is steadier on his feet. He denies any new neurologic symptoms. 3. On neurological examination, at this time, he does have mild problems with memory, higher cognitive function, and language. He also has a left seventh central facial paresis, a mild left hemiparesis but the motor function has returned to normal on the right. He still has lumsiness on vksueo-fb-gqkw and rwau-xk-rntm testing on the left side compared to the right, a minimaly wide- based stance, and a minimally wide-based but steadier gait. His deep tendon reflexes are globally absent and he has an extensor plantar response on the left side. 4. The MRI scan of the brain performed at [facility] on 05/23/2018 revealed an acute infarct in the right external capsule and basal ganglion region and another acute infarct in the right cannon radiata. In addition, an old right caudate infarct was also seen, and bilateral chronic small-vessel disease of an extensive nature was also seen. 5. Laboratory data obtained thus far have revealed that he is mildly anemic with a hemoglobin of 11.2 G. His chemistry panel reveald a BUN elevated to 31, creatinine elevated to 2.2, blood glucose elevated to 188, and hemoglobin A1c elevated to 11.7%. His lipid panel revealed triglycerides elevated to 167, total cholesterol of 201 with an LDL of 126, and an HDL of 38. His vitamin B12 level was normal at 678. His folic acid level was normal at 16.7 and his TSH was low at 0.30. His urine toxicology screen was benign. His INR was at 1.0. His urinalysis was benign and his RPR serology was pending. 6. The patient's history, neurological examination, laboratory data, and imaging studies are most compatible with unsteadiness on his feet due to acute right brain strokes causing the patient to have a left hemiparesis. His paresis is much better today and so is his gait. 7. The most likely etiology for the patient's cerebrovascular disease is hypertensive, diabetic, dyslipidemic, cerebrovascular disease. Recommendations 1. Continue present management. 2. His blood pressure should be controlled and his blood pressure goal should be equal to or less than 120/80 mmHg at all times. 3. The patient's diabetes should be well controlled with his hemoglobin A1c goal being close to 6%. 4. His lipids should be controlled with an LDL goal of less than 70. 5. Plavix 75 mg daily secondary stroke prevention. 6. Physical, occupational, speech, and language therapy to rehabilitate him. Isaías Mariano M.D., M.S.P.H. ISAÍAS MARIANO May 25, 2018 16:27
--- NOTE | 2018-05-25 18:00 | Consultation ---
DATE OF CONSULTATION: 05/25/2018 ENDOCRINOLOGY CONSULTATION CONSULTING PHYSICIAN: Nick Kenyon M.D. REFERRING PHYSICIAN: Ad Delarosa M.D. REASON FOR CONSULTATION: Diabetes management. HISTORY OF PRESENT ILLNESS: This is a 37-year-old male with history of diabetes for the past couple of years, on insulin and Januvia as an outpatient, who presented to the hospital with dizziness and nausea and vomiting. An MRI of the brain was performed, which showed an evidence of an acute CVA in the right external capsule basal ganglia and right cannon radiata as noted by ER physician. The patient was admitted to the floor for observation and treatment and was evaluated by a neurologist. I was called to manage diabetes. PAST MEDICAL HISTORY: 1. Diabetes. 2. Hypertension. MEDICATIONS: Reviewed and reconciled. SOCIAL HISTORY: No smoking, alcohol, or drug use. ALLERGIES TO MEDICATIONS: None. REVIEW OF SYSTEMS: As per HPI. PHYSICAL EXAMINATION: GENERAL: He is awake and alert. VITAL SIGNS: Blood pressure 150/100, respiratory rate 18, heart rate of 85, and temperature 98 degrees. HEENT: Pupils are equal and reactive to light. Sclerae are anicteric. NECK: No JVD. No thyromegaly. No bruit. LUNGS: Clear. HEART: Regular rate and rhythm. ABDOMEN: Positive bowel sounds. EXTREMITIES: No clubbing, cyanosis, or edema. REVIEW OF SYSTEMS: A 12 point system was performed. The pertinent positives in history of present illness. LABORATORY AND DIAGNOSTIC DATA: WBC 8.5, hemoglobin 11, hematocrit 33, and platelet count 336. Sodium 141, potassium 4.2, chloride 106, bicarbonate 29, BUN 31, creatinine 2.2, and glucose of 188. Hemoglobin A1c of 11.7. TSH of 0.39. DIAGNOSES: 1. Cerebrovascular accident. 2. Hypertension. 3. Diabetes, out of control. 4. Abnormal TSH. PLAN: 1. Increase the Levemir to 46 units daily. 2. Add NovoLog 8 units before each meal. 3. Continue Januvia. 4. NovoLog sliding scale before meals and at bedtime. 5. Low TSH is most likely the state of illness. We will have to repeat the TSH with free T4 for further evaluation. Thank you, Dr. Delarosa, for the courtesy of this consultation. Nick Kenyon M.D. DR: ELAYNE JOB#: [id number] CC: ALEN
[2018-05-25 20:00] VITALS: BP 104/60
--- NOTE | 2018-05-25 20:34 | Nephrology Progress Note ---
Assessment/Plan Problem List: (1) Diabetic nephropathy (2) Hypertensive kidney disease (3) Acute CVA (cerebrovascular accident) (4) Anemia in chronic kidney disease (CKD) Assessment Diabetic Nephropathy Nephrotic syndrome ( likely) Anemia IDDM HTN OOC acute CVA MR: Acute CVA demonstrated within right external capsule region/basal ganglia and right cannon radiata as described above. 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 Plan Adjust BP meds- Keep BS in check PT OT Fish oil / Lipitor Kidney BRANDON Right kidney measures 11.3 cm in length. Left kidney measures 11.9 cm in length. Both kidneys demonstrate normal echogenicity. Echo: here is evidence for right to left shunting Normal left ventricular chamber size, systolic function and wall motion. Left ventricular ejection fraction estimated to be 65-70 %. 24 H urine for proteins per orders Objective Objective Last 24 Hour Vital Signs Date Time Temp Pulse Resp B/P (MAP) Pulse Ox O2 Delivery O2 Flow Rate FiO2 05/25/18 16:00 97.7 72 21 114/80 (91) 96 97.7 05/25/18 15:15 70 05/25/18 14:30 125/71 05/25/18 12:00 97.9 76 21 125/71 (89) 96 97.9 05/25/18 11:51 77 05/25/18 09:40 78 127/75 05/25/18 08:20 Room Air 05/25/18 08:00 98.0 78 22 127/75 (92) 98 98.0 05/25/18 07:37 78 05/25/18 05:36 124/84 05/25/18 04:00 97.9 78 18 124/84 (97) 98 97.9 05/25/18 03:57 76 05/25/18 00:00 97.5 72 19 108/63 (78) 97 97.5 05/24/18 23:54 72 05/24/18 21:57 125/68 05/24/18 21:00 Room Air 05/24/18 20:36 77 111/66 Intake and Output 05/24/18 05/25/18 19:00 07:00 Intake Total 720 ml Balance 720 ml Intake Oral 720 ml # Voids 2 Laboratory Tests 05/25/18 06:40: White Blood Count 6.6, Red Blood Count 3.45L, Hemoglobin 10.2L, Hematocrit 30.5L , Mean Corpuscular Volume 88, Mean Corpuscular Hemoglobin 29.6, Mean Corpuscular Hemoglobin Concent 33.5, Red Cell Distribution Width 11.9, Platelet Count 299, Mean Platelet Volume 5.7L, Neutrophils (%) (Auto) 45.6, Lymphocytes ( %) (Auto) 44.2, Monocytes (%) (Auto) 7.6, Eosinophils (%) (Auto) 1.5, Basophils (%) (Auto) 1.1, Sodium Level 138, Potassium Level 4.7, Chloride Level 105, Carbon Dioxide Level 27, Anion Gap 6, Blood Urea Nitrogen 37H, Creatinine 2.9H, Estimat Glomerular Filtration Rate 30.2, Glucose Level 229H, Uric Acid 7.1, Calcium Level 8.9, Phosphorus Level 4.2, Magnesium Level 2.2, Iron Level 42L, Total Iron Binding Capacity 190L, Percent Iron Saturation 22, Unsaturated Iron Binding 148, Ferritin 265, Total Bilirubin 0.7, Gamma Glutamyl Transpeptidase 14 , Aspartate Amino Transf (AST/SGOT) 15, Alanine Aminotransferase (ALT/SGPT) 24, Alkaline Phosphatase 67, Total Creatine Kinase 178, Troponin I 0.009, Pro-B- Type Natriuretic Peptide 471H, Total Protein 6.1L, Albumin 2.6L, Globulin 3.5, Albumin/Globulin Ratio 0.7L, Vitamin B12 Level 582, Folate 14.4, Thyroid Stimulating Hormone (TSH) 0.619, Free Thyroxine 1.01, Free Triiodothyronine 2.2L Height (Feet): 6 Height (Inches): 4.00 Weight (Pounds): 299 Richy Forrester MD May 25, 2018 20:34
[2018-05-25] MEDS ORDERED: Atorvastatin 20mg tab ORAL SCH (21:00)
[2018-05-25] MEDS: HydrALAZINE 25mg tab ORAL SCH (22:56)
[2018-05-26] VITALS: BP 135/78
[2018-05-26 04:00] VITALS: BP 136/58
--- NOTE | 2018-05-26 05:00 | Progress Note ---
DATE: 05/25/2018 CARDIOLOGY PROGRESS NOTE SUBJECTIVE: The patient's blood pressure control has improved. He has no chest pain. Monitored rhythm, sinus. No atrial ectopy seen. Echocardiogram reviewed again, no shunting noted. Bubble study negative and left atrial size is 3.5, which is normal. OBJECTIVE: LUNGS: Clear. CARDIAC: Regular. Normal S1, S2. ABDOMEN: Soft. EXTREMITIES: No edema. Mild left weakness. IMPRESSION: Acute CVA, no basis for cardioembolic source, likely atherosclerosis in the setting of diabetes mellitus and hypertensive heart disease. PLAN: 1. Aggressive anti-lipid and anti-platelet therapy. 2. Tight blood pressure and glucose control. 3. Physical acute rehabilitation evaluation would be appropriate. Prince Teague M.D. DR: JACQUELINE JOB#: [id number] CC:
[2018-05-26] MEDS: HydrALAZINE 25mg tab ORAL SCH (06:29)
[2018-05-26 06:30] LABS: BASOPHILS % (AUTO) 0.8 % (0.0-2.0); EOSINOPHILS % (AUTO) 1.2 % (0.0-3.0); HEMATOCRIT 30.5 % (42.0-52.0); HEMOGLOBIN 10.1 G/DL (14.2-18.0); LYMPHOCYTES % (AUTO) 46.3 % (20.0-45.0); MEAN CORPUSCULAR VOLUME 89 FL (80-99); NEUTROPHILS % (AUTO) 44.7 % (45.0-75.0); PLATELET COUNT 300 K/UL (150-450); RED BLOOD COUNT 3.44 M/UL (4.70-6.10); RED CELL DISTRIBUTION WIDTH 11.6 % (11.6-14.8); WHITE BLOOD COUNT 6.7 K/UL (4.8-10.8)
[2018-05-26] MEDS ORDERED: Levemir Flexpen SUBQ SCH (06:30)
[2018-05-26] MEDS: NovoLOG Insulin Flexpen SUBQ SCH ×4 (06:33→12:15)
--- NOTE | 2018-05-26 06:58 | General Progress Note ---
Assessment/Plan Problem List: (1) Anemia in chronic kidney disease (CKD) ICD Codes: N18.9 - Chronic kidney disease, unspecified; D63.1 - Anemia in chronic kidney disease SNOMED: 198290489, 715926561 (2) Acute CVA (cerebrovascular accident) ICD Codes: I63.9 - Cerebral infarction, unspecified SNOMED: 737919544, 450092916 (3) Hypertensive kidney disease ICD Codes: I12.9 - Hypertensive chronic kidney disease with stage 1 through stage 4 chronic kidney disease, or unspecified chronic kidney disease SNOMED: 40558017 (4) Diabetic nephropathy ICD Codes: E11.21 - Type 2 diabetes mellitus with diabetic nephropathy SNOMED: 86602988, 558843503 (5) Basal ganglia infarction ICD Codes: I63.9 - Cerebral infarction, unspecified SNOMED: 953991712 (6) Vertigo ICD Codes: R42 - Dizziness and giddiness SNOMED: 728176232 (7) Renal insufficiency ICD Codes: N28.9 - Disorder of kidney and ureter, unspecified SNOMED: 067765889, 970764115 Assessment/Plan increase Levemir to 50 units daily continue Novolog 8 units ac tid + SSI thyroid function normalized Subjective Allergies: Coded Allergies: No Known Allergies (Unverified , 05/23/18) All Systems: reviewed and negative except above Subjective events noted Objective Last 24 Hour Vital Signs Date Time Temp Pulse Resp B/P (MAP) Pulse Ox O2 Delivery O2 Flow Rate FiO2 05/26/18 06:29 137/85 05/26/18 04:00 97.7 87 21 136/58 (84) 98 97.7 05/26/18 03:38 78 05/26/18 00:00 97.0 80 21 135/78 (97) 98 97.0 05/25/18 23:30 74 05/25/18 22:56 142/75 05/25/18 21:21 79 135/75 05/25/18 21:00 Room Air 05/25/18 20:00 98.0 72 21 104/60 (75) 96 98.0 05/25/18 19:02 69 05/25/18 16:00 97.7 72 21 114/80 (91) 96 97.7 05/25/18 15:15 70 05/25/18 14:30 125/71 05/25/18 12:00 97.9 76 21 125/71 (89) 96 97.9 05/25/18 11:51 77 05/25/18 09:40 78 127/75 05/25/18 08:20 Room Air 05/25/18 08:00 98.0 78 22 127/75 (92) 98 98.0 05/25/18 07:37 78 Intake and Output 05/25/18 05/26/18 19:00 07:00 Intake Total 680 ml Balance 680 ml Intake Oral 680 ml # Voids 2 Laboratory Tests 05/26/18 05:25: White Blood Count [Pending], Red Blood Count [Pending], Hemoglobin [Pending], Hematocrit [Pending], Mean Corpuscular Volume [Pending], Mean Corpuscular Hemoglobin [Pending], Mean Corpuscular Hemoglobin Concent [Pending], Red Cell Distribution Width [Pending], Platelet Count [Pending], Mean Platelet Volume [ Pending], Neutrophils (%) (Auto) [Pending], Lymphocytes (%) (Auto) [Pending], Monocytes (%) (Auto) [Pending], Eosinophils (%) (Auto) [Pending], Basophils (%) (Auto) [Pending], Sodium Level [Pending], Potassium Level [Pending], Chloride Level [Pending], Carbon Dioxide Level [Pending], Blood Urea Nitrogen [Pending], Creatinine [Pending], Estimat Glomerular Filtration Rate [Pending], Glucose Level [Pending], Calcium Level [Pending] Height (Feet): 6 Height (Inches): 4.00 Weight (Pounds): 299 General Appearance: no apparent distress Neck: normal alignment Cardiovascular: normal rate Respiratory/Chest: lungs clear Abdomen: normal bowel sounds Pelvis: normal external exam Edema: no edema noted Arm (L), no edema noted Arm (R), no edema noted Leg (L), no edema noted Leg (R), no edema noted Pedal (L), no edema noted Pedal (R), no edema noted Generalized Objective Current Medications Medications (Trade) Dose Ordered Sig/Jessika Route PRN Reason Start Time Stop Time Status Last Admin Dose Admin Acetaminophen (Tylenol) 650 mg Q4H PRN ORAL Mild Pain/Temp > 100.5 05/23/18 21:45 06/22/18 21:44 Amlodipine Besylate (Norvasc) 10 mg DAILY ORAL 05/25/18 09:00 06/24/18 08:59 Atorvastatin Calcium (Lipitor) 40 mg BEDTIME ORAL 05/25/18 21:00 06/24/18 20:59 05/25/18 21:21 Clonidine HCl (Catapres Tab) 0.1 mg Q4H PRN ORAL bp 160 syst & 100 diast 05/24/18 11:30 06/23/18 11:29 Clopidogrel Bisulfate (Plavix) 75 mg DAILY ORAL 05/25/18 09:00 06/24/18 08:59 05/25/18 09:39 Dextrose (Dextrose 50%) 25 ml STAT PRN IV Hypoglycemia 05/25/18 07:00 06/24/18 06:59 Dextrose (Dextrose 50%) 50 ml STAT PRN IV Hypoglycemia 05/25/18 07:00 06/24/18 06:59 Fish Oil (Fish Oil) 1,000 mg BID ORAL 05/24/18 11:30 06/23/18 11:29 05/25/18 18:02 Gabapentin (Neurontin) 800 mg Q8HR ORAL 05/23/18 22:00 06/22/18 21:59 05/26/18 06:29 Heparin Sodium (Porcine) (Heparin 5000 units/ml) 5,000 units EVERY 12 HOURS SUBQ 05/24/18 09:00 06/23/18 08:59 05/25/18 21:24 Hydralazine HCl (Apresoline) 25 mg Q8HR ORAL 05/25/18 22:00 06/23/18 00:00 05/26/18 06:29 Insulin Aspart (NovoLOG) BEFORE MEALS AND HS SUBQ 05/24/18 06:30 06/23/18 06:29 05/26/18 06:33 Insulin Aspart (NovoLOG) 8 units NOVOTIAC SUBQ 05/25/18 07:00 06/24/18 06:59 05/26/18 06:33 Insulin Detemir (Levemir) 46 units ACBREAKFAST SUBQ 05/26/18 06:30 06/23/18 06:29 05/26/18 06:32 Metoprolol Tartrate (Lopressor) 50 mg EVERY 12 HOURS ORAL 05/24/18 21:00 06/22/18 21:59 05/25/18 21:21 Pantoprazole (Protonix) 40 mg DAILY ORAL 05/24/18 11:45 06/23/18 11:44 05/25/18 09:39 Sitagliptin Phosphate (Januvia) 100 mg DAILY ORAL 05/24/18 09:00 06/23/18 08:59 05/25/18 09:40 Tamsulosin HCl (Flomax) 0.4 mg BID ORAL 05/24/18 18:00 06/23/18 17:59 05/25/18 18:02 Item Value Date Time Bedside Blood Glucose 249 mg/dl H 05/26/18 0649 Bedside Blood Glucose 189 mg/dl H 05/25/18 2124 Bedside Blood Glucose 92 mg/dl 05/25/18 1623 Bedside Blood Glucose 251 mg/dl H 05/25/18 1213 Bedside Blood Glucose 279 mg/dl H 05/25/18 0809 Bedside Blood Glucose 223 mg/dl H 05/25/18 0618 Nick Kenyon MD May 26, 2018 06:58
[2018-05-26 07:09] LABS: ANION GAP 8 mmol/L (5-15); BLOOD UREA NITROGEN 41 mg/dL (7-18); CALCIUM 8.9 MG/DL (8.5-10.1); CARBON DIOXIDE 26 MMOL/L (21-32); CHLORIDE 104 MMOL/L (98-107); POTASSIUM 4.9 MMOL/L (3.5-5.1); SODIUM 137 MMOL/L (136-145)
[2018-05-26 08:00] VITALS: BP 149/97
[2018-05-26] MEDS ORDERED: Metoprolol 25mg tab ONE (08:51)
[2018-05-26] MEDS: Tamsulosin 0.4mg cap ORAL SCH (09:09)
[2018-05-26] MEDS: Heparin 5000 units/ml inj SUBQ SCH (09:12)
[2018-05-26] MEDS: Metoprolol Tartrate 50mg tab ORAL SCH (09:15)
--- NOTE | 2018-05-26 09:55 | Pulmonology Progress Note ---
Assessment/Plan Assessment/Plan IMPRESSION: 1. Acute cerebrovascular accident. 2. Hypertension. 3. Diabetes mellitus. 4. Nephropathy DISCUSSION: He is a candidate also for outpatient polysomnography. Blood pressure control. Seen by Cardiology and Neurology and Nephrology. 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 BP control Added Plavix Diabetes control IV hydration DC home Subjective Interval Events: Better Constitutional: Reports: no symptoms HEENT: Repors: no symptoms Respiratory: Reports: no symptoms Cardiovascular: Reports: no symptoms Gastrointestinal/Abdominal: Reports: no symptoms Genitourinary: Reports: no symptoms Allergies: Coded Allergies: No Known Allergies (Unverified , 05/23/18) Objective Last 24 Hour Vital Signs Date Time Temp Pulse Resp B/P (MAP) Pulse Ox O2 Delivery O2 Flow Rate FiO2 05/26/18 09:15 86 149/97 05/26/18 09:10 86 149/97 05/26/18 08:00 98.2 86 20 149/97 (114) 97 98.2 05/26/18 06:29 137/85 05/26/18 04:00 97.7 87 21 136/58 (84) 98 97.7 05/26/18 03:38 78 05/26/18 00:00 97.0 80 21 135/78 (97) 98 97.0 05/25/18 23:30 74 05/25/18 22:56 142/75 05/25/18 21:21 79 135/75 05/25/18 21:00 Room Air 05/25/18 20:00 98.0 72 21 104/60 (75) 96 98.0 05/25/18 19:02 69 05/25/18 16:00 97.7 72 21 114/80 (91) 96 97.7 05/25/18 15:15 70 05/25/18 14:30 125/71 05/25/18 12:00 97.9 76 21 125/71 (89) 96 97.9 05/25/18 11:51 77 Intake and Output 05/25/18 05/26/18 19:00 07:00 Intake Total 680 ml Balance 680 ml Intake Oral 680 ml # Voids 2 General Appearance: no acute distress HEENT: normocephalic Respiratory/Chest: chest wall non-tender Cardiovascular: normal peripheral pulses, normal rate Abdomen: normal bowel sounds Laboratory Tests 05/26/18 05:25: White Blood Count 6.7, Red Blood Count 3.44L, Hemoglobin 10.1L, Hematocrit 30.5L , Mean Corpuscular Volume 89, Mean Corpuscular Hemoglobin 29.3, Mean Corpuscular Hemoglobin Concent 33.1, Red Cell Distribution Width 11.6, Platelet Count 300, Mean Platelet Volume 5.5L, Neutrophils (%) (Auto) 44.7L, Lymphocytes (%) (Auto) 46.3H, Monocytes (%) (Auto) 7.0, Eosinophils (%) (Auto) 1.2, Basophils (%) (Auto) 0.8, Sodium Level 137, Potassium Level 4.9, Chloride Level 104, Carbon Dioxide Level 26, Anion Gap 8, Blood Urea Nitrogen 41H, Creatinine 3.0H, Estimat Glomerular Filtration Rate 29.0, Glucose Level 226H, Calcium Level 8.9 Current Medications Medications (Trade) Dose Ordered Sig/Jessika Route PRN Reason Start Time Stop Time Status Last Admin Dose Admin Acetaminophen (Tylenol) 650 mg Q4H PRN ORAL Mild Pain/Temp > 100.5 05/23/18 21:45 06/22/18 21:44 Amlodipine Besylate (Norvasc) 10 mg DAILY ORAL 05/25/18 09:00 06/24/18 08:59 05/26/18 09:10 Atorvastatin Calcium (Lipitor) 40 mg BEDTIME ORAL 05/25/18 21:00 06/24/18 20:59 05/25/18 21:21 Clonidine HCl (Catapres Tab) 0.1 mg Q4H PRN ORAL bp 160 syst & 100 diast 05/24/18 11:30 06/23/18 11:29 Clopidogrel Bisulfate (Plavix) 75 mg DAILY ORAL 05/25/18 09:00 06/24/18 08:59 05/26/18 09:09 Dextrose (Dextrose 50%) 25 ml STAT PRN IV Hypoglycemia 05/25/18 07:00 06/24/18 06:59 Dextrose (Dextrose 50%) 50 ml STAT PRN IV Hypoglycemia 05/25/18 07:00 06/24/18 06:59 Fish Oil (Fish Oil) 1,000 mg BID ORAL 05/24/18 11:30 06/23/18 11:29 05/26/18 09:09 Gabapentin (Neurontin) 800 mg Q8HR ORAL 05/23/18 22:00 06/22/18 21:59 05/26/18 06:29 Heparin Sodium (Porcine) (Heparin 5000 units/ml) 5,000 units EVERY 12 HOURS SUBQ 05/24/18 09:00 06/23/18 08:59 05/26/18 09:12 Hydralazine HCl (Apresoline) 25 mg Q8HR ORAL 05/25/18 22:00 06/23/18 00:00 05/26/18 06:29 Insulin Aspart (NovoLOG) BEFORE MEALS AND HS SUBQ 05/24/18 06:30 06/23/18 06:29 05/26/18 06:33 Insulin Aspart (NovoLOG) 8 units NOVOTIAC SUBQ 05/25/18 07:00 06/24/18 06:59 05/26/18 06:33 Insulin Detemir (Levemir) 50 units ACBREAKFAST SUBQ 05/27/18 06:30 06/23/18 06:29 Metoprolol Tartrate (Lopressor) 50 mg EVERY 12 HOURS ORAL 05/24/18 21:00 06/22/18 21:59 05/26/18 09:15 Pantoprazole (Protonix) 40 mg DAILY ORAL 05/24/18 11:45 06/23/18 11:44 05/26/18 09:09 Sitagliptin Phosphate (Januvia) 100 mg DAILY ORAL 05/24/18 09:00 06/23/18 08:59 05/26/18 09:09 Tamsulosin HCl (Flomax) 0.4 mg BID ORAL 05/24/18 18:00 06/23/18 17:59 05/26/18 09:09 Anthony Delarosa MD May 26, 2018 09:55
[2018-05-26] MEDS ORDERED: METOPROLOL TART50 MG ORAL ×2 (10:02→10:59)
[2018-05-26] MEDS ORDERED: PLAVIX75 MG ORAL ×2 (10:02→11:01)
[2018-05-26] MEDS ORDERED: HYDRALAZINE HCL25 M1 ORAL (10:02)
[2018-05-26] MEDS ORDERED: NORVASC10 MG ORAL ×2 (10:02→11:01)
[2018-05-26] MEDS ORDERED: LIPITOR20 MG ORAL (10:02)
[2018-05-26] MEDS ORDERED: LEVEMIR FL100 UNIT/1 SUBQ ×2 (10:02→11:01)
--- NOTE | 2018-05-26 10:13 | Neurology Progress Note ---
Interim History Interim History Interim History Mr. Drake feels very well. The mind is clear. He feels significantly stronger. He feels steady on his feet. He denies any new neurologic symptoms. He was able to sleep well last night. He has been able to walk well. His appetite is good and he is eating well. He is eager to go home. Review of Systems Neuro Review of Systems Benign. Objective Physical Exam Last Vital Signs Date Time Temp Pulse Resp B/P (MAP) Pulse Ox O2 Delivery O2 Flow Rate FiO2 05/26/18 09:15 86 149/97 05/26/18 08:00 98.2 20 97 98.2 05/25/18 21:00 Room Air Laboratory Tests Test 05/26/18 05:25 White Blood Count 6.7 K/UL (4.8-10.8) Red Blood Count 3.44 M/UL (4.70-6.10) L Hemoglobin 10.1 G/DL (14.2-18.0) L Hematocrit 30.5 % (42.0-52.0) L Mean Corpuscular Volume 89 FL (80-99) Mean Corpuscular Hemoglobin 29.3 PG (27.0-31.0) Mean Corpuscular Hemoglobin Concent 33.1 G/DL (32.0-36.0) Red Cell Distribution Width 11.6 % (11.6-14.8) Platelet Count 300 K/UL (150-450) Mean Platelet Volume 5.5 FL (6.5-10.1) L Neutrophils (%) (Auto) 44.7 % (45.0-75.0) L Lymphocytes (%) (Auto) 46.3 % (20.0-45.0) H Monocytes (%) (Auto) 7.0 % (1.0-10.0) Eosinophils (%) (Auto) 1.2 % (0.0-3.0) Basophils (%) (Auto) 0.8 % (0.0-2.0) Sodium Level 137 MMOL/L (136-145) Potassium Level 4.9 MMOL/L (3.5-5.1) Chloride Level 104 MMOL/L (98-107) Carbon Dioxide Level 26 MMOL/L (21-32) Anion Gap 8 mmol/L (5-15) Blood Urea Nitrogen 41 mg/dL (7-18) H Creatinine 3.0 MG/DL (0.55-1.30) H Estimat Glomerular Filtration Rate 29.0 mL/min (>60) Glucose Level 226 MG/DL (74-106) H Calcium Level 8.9 MG/DL (8.5-10.1) Neurologic Exam Objective PHYSICAL EXAMINATION: GENERAL: He is a well-developed, well-nourished, obese, black gentleman, sitting up at the edge of his bed, in no acute distress. HEAD: Normocephalic and atraumatic. EENT: Examination benign. NECK: No neck rigidity was observed. NEUROLOGICAL EXAMINATION: MENTAL STATUS EXAMINATION: He was awake and alert. He was oriented to person, place, and time. He was able to recall 3/3 words immediately, after 1 minute and after 3 minutes. He was able to remember Presidents Trump through Franco Senior. His mathematical skills were minimally impaired. His visuospatial function was relatively good. SPEECH: He had no dysarthria. LANGUAGE: He had an anomia for low-frequency words. CRANIAL NERVE EXAMINATION: II: The visual crespo were intact on confrontation testing. III, IV & : The external ocular movements were full and the pupils 3 mm in diameter, equal, round, regular, and reactive to light. V: He had normal facial sensations and the temporales, masseters, and pterygoids functioned normally. VII: He had a left seventh central facial paresis. VIII: He was able to hear well bilaterally and had no nystagmus. IX: The palate moved symmetrically on phonation. X: He had no hoarseness of voice. XI: The sternocleidomastoids and trapezii functioned normally. XII: The tongue was in the midline without any fasciculations or atrophy. MOTOR SYSTEM: The tone was normal in all four extremities. Examination of muscle mass revealed no focal wasting. Examination of power revealed G 5/5 power except for G 5-/5 power in the left finger extensors, iliopsoas and toe extensors. SENSORY EXAMINATION: He had intact sensations to pinprick and light touch, but complained of subjective alteration to both those modalities in a knee-high stocking distribution. REFLEXES: 0 at the biceps, triceps, brachioradialis, knees, and ankles. The plantar response was flexor on the right and extensor on the left. COORDINATION: Mgxkpt-rt-hexk and grss-mo-cauj testing were clumsy on the left side compared to the right. STANCE: He stood up with a minimally wide base. GAIT: He walked with a minimally wide based gait. Impression/Recommendations Diagnostic Impression 1. Mr. Isak Drake is a 37-year-old, right-handed, black gentleman, with a past history of hypertension, diabetes mellitus, diabetic neuropathy, right leg weakness attributed to neuropathy, and disability related to his diabetes mellitus, who approximately a week ago felt unsteadier on his feet and noticed that this unsteadiness was only present when he stood and walked, but was absent if he sat or lay in bed. He was seen for this problem at [facility] in [place] and was told that the problem was related to his high blood pressure and his blood pressure was controlled and he was sent home. He then presented to the [facility] emergency room for worsening of his problem and on evaluation, his blood pressures were as high as 170 systolic. He has since been admitted to the hospital. 2. He feels very well. The mind is clear. He feels significantly stronger. He feels steady on his feet. He denies any new neurologic symptoms. He was able to sleep well last night. He has been able to walk well. His appetite is good and he is eating well. He is eager to go home. 3. On neurological examination, at this time, he does have mild problems with memory, higher cognitive function, and language. He also has a left seventh central facial paresis, a minimal left hemiparesis, normal motor function on the right. He still has clumsiness on oesxli-hz-jxdc and piyw-el-wket testing on the left side, a minimally wide-based stance, and a minimally wide-based but steadier gait. His deep tendon reflexes are globally absent and he has an extensor plantar response on the left side. 4. The MRI scan of the brain performed at [facility] on 05/23/2018 revealed an acute infarct in the right external capsule and basal ganglion region and another acute infarct in the right cannon radiata. In addition, an old right caudate infarct was also seen, and bilateral chronic small-vessel disease of an extensive nature was also seen. 5. Laboratory data obtained thus far have revealed that he is mildly anemic with a hemoglobin of 11.2 G. His chemistry panel reveald a BUN elevated to 31, creatinine elevated to 2.2, blood glucose elevated to 188, and hemoglobin A1c elevated to 11.7%. His lipid panel revealed triglycerides elevated to 167, total cholesterol of 201 with an LDL of 126, and an HDL of 38. His vitamin B12 level was normal at 678. His folic acid level was normal at 16.7 and his TSH was low at 0.30. His urine toxicology screen was benign. His INR was at 1.0. His urinalysis was benign and his RPR serology was pending. 6. The patient's history, neurological examination, laboratory data, and imaging studies are most compatible with unsteadiness on his feet due to acute right brain strokes causing the patient to have a left hemiparesis. His paresis is much better today and so is his gait. 7. The most likely etiology for the patient's cerebrovascular disease is hypertensive, diabetic, dyslipidemic, cerebrovascular disease. Recommendations 1. Continue present management. 2. His blood pressure should be controlled and his blood pressure goal should be equal to or less than 120/80 mmHg at all times. 3. The patient's diabetes should be well controlled with his hemoglobin A1c goal being close to 6%. 4. His lipids should be controlled with an LDL goal of less than 70. 5. Plavix 75 mg daily secondary stroke prevention. 6. Follow up with neurologist in 6-8 weeks. Isaías Mariano M.D., M.S.P.Dilip. ISAÍAS MARIANO May 26, 2018 10:13
[2018-05-26] MEDS ORDERED: JANUVIA100 MG ORAL (10:55)
[2018-05-26] MEDS ORDERED: HYDRALAZINE HCL25 M2 PO (10:57)
[2018-05-26] MEDS ORDERED: INDOCIN75 MG ORAL (10:58)
[2018-05-26] MEDS ORDERED: LIPITOR40 MG ORAL (11:01)
[2018-05-26] MEDS ORDERED: NEURONTIN800 MG ORAL (11:02)
[2018-05-26 12:00] VITALS: BP 129/79
--- NOTE | 2018-05-26 14:07 | Diagnostic Imaging Report ---
APPROVED REPORT CPT Code: 80266 Vascular Symptoms Comments: R/O PAD BILATERAL: CCA/BULB - Imaging reveals irregular, minimal plaque in both carotid bulbs. arteries. The Doppler spectral flow analysis is within normal limits throughout the internal and external carotid arteries. VERTEBRALS - Imaging reveals both vertebral arteries to be patent, without evidence of stenosis or steal.
--- NOTE | 2018-05-26 16:33 | Nephrology Progress Note ---
Assessment/Plan Problem List: (1) Diabetic nephropathy (2) Hypertensive kidney disease (3) Acute CVA (cerebrovascular accident) (4) Anemia in chronic kidney disease (CKD) Assessment Diabetic Nephropathy Nephrotic syndrome ( likely) Anemia IDDM HTN OOC acute CVA MR: Acute CVA demonstrated within right external capsule region/basal ganglia and right cannon radiata as described above. 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 Plan Adjust BP meds- Keep BS in check PT OT Fish oil / Lipitor Kidney BRANDON Right kidney measures 11.3 cm in length. Left kidney measures 11.9 cm in length. Both kidneys demonstrate normal echogenicity. Echo: here is evidence for right to left shunting Normal left ventricular chamber size, systolic function and wall motion. Left ventricular ejection fraction estimated to be 65-70 %. OK to DC and follow as OP Subjective ROS Limited/Unobtainable: No Interval Events/Complaints seen at 9.30 am Constitutional: Reports: malaise Objective Objective Last 24 Hour Vital Signs Date Time Temp Pulse Resp B/P (MAP) Pulse Ox O2 Delivery O2 Flow Rate FiO2 05/26/18 12:00 97.7 79 16 129/79 (96) 98 97.7 05/26/18 09:15 86 149/97 05/26/18 09:10 86 149/97 05/26/18 08:42 85 05/26/18 08:10 Room Air 05/26/18 08:00 98.2 86 20 149/97 (114) 97 98.2 05/26/18 06:29 137/85 05/26/18 04:00 97.7 87 21 136/58 (84) 98 97.7 05/26/18 03:38 78 05/26/18 00:00 97.0 80 21 135/78 (97) 98 97.0 05/25/18 23:30 74 05/25/18 22:56 142/75 05/25/18 21:21 79 135/75 05/25/18 21:00 Room Air 05/25/18 20:00 98.0 72 21 104/60 (75) 96 98.0 05/25/18 19:02 69 Intake and Output 05/25/18 05/26/18 19:00 07:00 Intake Total 680 ml Balance 680 ml Intake Oral 680 ml # Voids 2 Laboratory Tests 05/26/18 05:25: White Blood Count 6.7, Red Blood Count 3.44L, Hemoglobin 10.1L, Hematocrit 30.5L , Mean Corpuscular Volume 89, Mean Corpuscular Hemoglobin 29.3, Mean Corpuscular Hemoglobin Concent 33.1, Red Cell Distribution Width 11.6, Platelet Count 300, Mean Platelet Volume 5.5L, Neutrophils (%) (Auto) 44.7L, Lymphocytes (%) (Auto) 46.3H, Monocytes (%) (Auto) 7.0, Eosinophils (%) (Auto) 1.2, Basophils (%) (Auto) 0.8, Sodium Level 137, Potassium Level 4.9, Chloride Level 104, Carbon Dioxide Level 26, Anion Gap 8, Blood Urea Nitrogen 41H, Creatinine 3.0H, Estimat Glomerular Filtration Rate 29.0, Glucose Level 226H, Calcium Level 8.9 Height (Feet): 6 Height (Inches): 4.00 Weight (Pounds): 299 General Appearance: no apparent distress Cardiovascular: normal rate Respiratory/Chest: decreased breath sounds Abdomen: soft Objective no change Richy Forrester MD May 26, 2018 16:33
--- NOTE | 2018-05-27 05:45 | Progress Note ---
DATE: 05/26/2018 CARDIOLOGY PROGRESS NOTE SUBJECTIVE: The patient feels well. His mind is clear. He feels stronger and steady on his feet. He slept well and has a good appetite. OBJECTIVE: VITAL SIGNS: Blood pressure 149/97, pulse 86, respirations 20, and afebrile. LUNGS: Clear. CARDIAC: Regular. Normal S1 and S2 with no murmur. ABDOMEN: Soft. EXTREMITIES: No edema. LABORATORY DATA: White count 6.7 and hemoglobin 10.1. Potassium 4.9, BUN 41, and creatinine 3. IMPRESSION: 1. Acute CVA. 2. Diabetic nephropathy with acute on chronic kidney injury. 3. Hypertensive heart disease, no signs of intracardiac shunting or cardioembolic source. PLAN: Aggressive anti-lipid and anti-platelet therapy as well as aggressive antihypertensive control and outpatient monitoring of cardiorenal parameters. All discussed with consultants and the patient. Prince Teague M.D. DR: KAVIN JOB#: [id number] CC:
[2018-05-27] MEDS ORDERED: Levemir Flexpen SUBQ SCH (06:30)
--- NOTE | 2018-05-27 12:54 | Discharge Summary ---
Discharge Summary Discharge Summary _ DATE OF ADMISSION: 05/23/2018 DATE OF DISCHARGE: 05/26/2018 CONSULTANTS: Dr. Ronnie Kenyon BRIEF HOSPITAL COURSE: Patient is a 37-year-old male, who had been having symptoms and vertigo for about a week. He was seen at an outside hospital and was discharged after being started on antihypertensives. He continued to have nausea, vomiting and dizziness. He then presented to ED for further evaluation. He has medical history significant for diabetes mellitus and hypertension. On evaluation at ED, vital signs were stable. Blood work was without leukocytosis, BUN was elevated to 32, creatinine 2.5. Troponin was negative. He had MRI of the brain that showed an acute CVA with in the right external capsule region/basal ganglia and cannon radiata. There was an old right caudate infarct. [facility] stroke team was called. Patient is out of window for thrombolytic therapy given symptoms started 6 days ago. Patient was then admitted. He underwent neuro checks. He was seen by Dr. Lin. On neurological examination. Patient had left seventh central facial paralysis, left hemiparesis, minor right finger extensor, iliopsoas and toe extensor weakness, significant clumsiness on [id number] and [id number] testing on the left side compared to the right, had a wide based stance, and wide-based left paretic gait. Antiplatelet therapy was changed from aspirin to Plavix 75 mg daily. He was given blood pressure control. He was given Lipitor. Lipids were checked LDL goal of less than 70. He was placed on surveillance system monitor. EKG showed sinus rhythm with nonspecific ST to T wave changes. Carotid exam showed irregular, minimal plaque in both carotid bulb. Echocardiogram with bubble study showed ejection fraction 65-70% , with trace mitral regurgitation, and trace tricuspid regurgitation. There was no evidence of arrhythmia on the monitor. Renal function was monitored. Renal ultrasound showed a possible nonobstructing left renal calculi. Otherwise unremarkable. Blood glucose was monitored. Hemoglobin A1c was 11.7. Insulin dosage was increased. He was continued on Januvia. He was placed on NovoLog 18 units before meals tid plus sliding scale and Levemir was increased to 50 units daily. He was given physical therapy. Blood pressure with better control. He was eventually discharged home. FINAL DIAGNOSES: Acute CVA Hypertension Hypertensive heart disease Diabetes mellitus, out of control Diabetic nephropathy with acute on chronic kidney injury Anemia in CKD Vertigo DISPOSITION: patient was discharged home. DISCHARGE MEDICATIONS: Refer to Discharge Medication List. DISCHARGE INSTRUCTIONS: Follow up within a week. I have been assigned to dictate discharge summary on this account, and I was not involved in the patient's management. Renetta Peralta NP May 27, 2018 12:54
== END 2018-05-26 12:45 | disposition home or self-care (01) | DRG 45 ==
LOC: EMR 13:08 → 2E 18:00 → EDBEDREQ 18:48 → 2E 23:39
DX: I63.9 Cerebral infarction, unspecified (principal); N17.9 Acute kidney failure, unspecified; E11.21 Type 2 diabetes mellitus with diabetic nephropathy; E11.40 Type 2 diabetes mellitus with diabetic neuropathy, unspecified; G81.94 Hemiplegia, unspecified affecting left nondominant side; E66.9 Obesity, unspecified; Z90.49 Acquired absence of other specified parts of digestive tract; E78.5 Hyperlipidemia, unspecified; Z86.73 Personal history of transient ischemic attack (TIA), and cerebral infarction without residual deficits; E11.65 Type 2 diabetes mellitus with hyperglycemia; I67.9 Cerebrovascular disease, unspecified; D63.1 Anemia in chronic kidney disease; E11.22 Type 2 diabetes mellitus with diabetic chronic kidney disease; N18.9 Chronic kidney disease, unspecified; I13.10 Hypertensive heart and chronic kidney disease without heart failure, with stage 1 through stage 4 chronic kidney disease, or unspecified chronic kidney disease; N20.0 Calculus of kidney
CPT/HCPCS: 36415; 70551; 71045; 76770; 80048; 80053; 80061; 80307; 81003; 81050; 82550; 82553; 82607; 82728; 82746; 82962; 82977; 83036; 83540; 83550; 83735; 83880; 84100; 84156; 84439; 84443; 84481; 84484; 84550; 85025; 85610; 85651; 85730; 86140; 86592; 93005; 93306; 93880; 99285; J1815; S5561

== ENCOUNTER 2019-12-20 08:53 | Inpatient (IN) | payer MEDICAID ==
[~2019-12-20] VITALS: Ht 193 cm; Wt 95.1 kg
[2019-12-20] VITALS (8 sets, daily range): BP systolic 128–220; BP diastolic 77–120
[~2019-12-20 08:53] MED LIST: GABAPENTIN600 MG ORAL; GABAPENTIN800 MG ORAL; HYDRALAZINE HCL25 M1 ORAL; HYDRALAZINE HCL25 M2 PO; HYDRALAZINE HCL50 MG ORAL; INDOCIN75 MG ORAL; JANUVIA100 MG ORAL; JANUVIA25 MG ORAL; LANTUS SOL100 UNIT/1 SUBQ; LEVEMIR FL100 UNIT/1 SUBQ; LIPITOR20 MG ORAL; LIPITOR40 MG ORAL; LISINOPRIL20 MG ORAL; METOPROLOL TAR100 MG ORAL; METOPROLOL TART50 MG ORAL; NEURONTIN800 MG ORAL; NORVASC10 MG ORAL; PLAVIX75 MG ORAL; TRIAMTERENE-HC1 EAC6 ORAL
--- NOTE | 2019-12-20 09:05 | NUR ---
ED Nurse Note: Pt walked in from home d/t possible malfunction of right chest permacath since morning. Pt was unable to finish dialysis yesterday d/t "clogging." Pt blood pressure elevated @ 220/120. All other vitals stable. Pt denies SOB or dizziness, but reports leg cramping. Pt placed in monitored bed.
--- NOTE | 2019-12-20 09:13 | Emergency Room Report ---
History of Present Illness General Chief Complaint: Hypertension Source: Patient Present Illness HPI 39-year-old male presents with missed dialysis due to clogging of his dialysis cath right subclavian, patient reports partially cleaning his dialysis on Wednesday he gets it Wednesday, no chest pain or shortness of breath he states that he is very nervous about coming to the hospital his dialysis cath is not working aggravated by clots alleviated by no clots, severity is mild, constant patient presents for evaluation Allergies: Coded Allergies: No Known Allergies (Unverified , 05/23/18) COVID-19 Screening Contact w/high risk pt: No Recent Travel to affected area: No Experienced COVID-19 symptoms?: No Patient History Past Medical History: see triage record Reviewed Nursing Documentation: PMH: Agreed; PSxH: Agreed Nursing Documentation-PMH Past Medical History: No History, Except For Hx Hypertension: Yes Hx Diabetes: Yes Review of Systems All Other Systems: negative except mentioned in HPI Physical Exam Vital Signs Date Time Temp Pulse Resp B/P (MAP) Pulse Ox O2 Delivery O2 Flow Rate FiO2 12/20/19 08:58 98.6 105 17 244/126 (165) 96 Room Air Sp02 EP Interpretation: reviewed, normal General Appearance: well appearing, no apparent distress, alert Head: normocephalic, atraumatic Eyes: bilateral eye PERRL, bilateral eye EOMI ENT: uvula midline, moist mucus membranes Neck: supple, thyroid normal, supple/symm/no masses Respiratory: lungs clear, no respiratory distress, no retraction, no accessory muscle use Cardiovascular #1: normal peripheral pulses, no edema, no gallop, no murmur, tachycardia Gastrointestinal: non tender, soft, no guarding, no rebound Musculoskeletal: normal inspection Neurologic: alert, oriented x3 Psychiatric: mood/affect normal, anxious Skin: no rash, warm/dry Medical Decision Making Diagnostic Impression: Primary Impression: Dialysis catheter clot or failure Additional Impression: Complication, dialysis catheter clot or failure ER Course 39-year-old male presents with malfunctioning dialysis catheter, patient was sent in by his primary care doctor for evaluation and for placement of his dialysis catheter, patient shows no signs of fluid overload no evidence of pulmonary edema. Patient to be transferred to [facility] Patient accepted by Dr. Siu 1:38pm Laboratory Tests Test 12/20/19 09:25 White Blood Count 7.9 K/UL (4.8-10.8) Red Blood Count 4.50 M/UL (4.70-6.10) L Hemoglobin 12.4 G/DL (14.2-18.0) L Hematocrit 38.7 % (42.0-52.0) L Mean Corpuscular Volume 86 FL (80-99) Mean Corpuscular Hemoglobin 27.6 PG (27.0-31.0) Mean Corpuscular Hemoglobin Concent 32.1 G/DL (32.0-36.0) Red Cell Distribution Width 14.6 % (11.6-14.8) Platelet Count 359 K/UL (150-450) Mean Platelet Volume 5.5 FL (6.5-10.1) L Neutrophils (%) (Auto) 72.4 % (45.0-75.0) Lymphocytes (%) (Auto) 16.9 % (20.0-45.0) L Monocytes (%) (Auto) 6.6 % (1.0-10.0) Eosinophils (%) (Auto) 3.0 % (0.0-3.0) Basophils (%) (Auto) 1.2 % (0.0-2.0) Prothrombin Time 10.7 SEC (9.30-11.50) Prothrombin Time INR 1.0 (0.9-1.1) Activated Partial Thromboplast Time 30 SEC (23-33) Sodium Level 134 MMOL/L (136-145) L Potassium Level 3.5 MMOL/L (3.5-5.1) Chloride Level 93 MMOL/L (98-107) L Carbon Dioxide Level 23 MMOL/L (21-32) Anion Gap 18 mmol/L (5-15) H Blood Urea Nitrogen 64 mg/dL (7-18) H Creatinine 16.4 MG/DL (0.55-1.30) H Estimated Glomerular Filtration Rate 4.0 mL/min (>60) Glucose Level 335 MG/DL (74-106) H Calcium Level 9.3 MG/DL (8.5-10.1) Total Bilirubin 0.9 MG/DL (0.2-1.0) Aspartate Amino Transferase (AST) 16 U/L (15-37) Alanine Aminotransferase (ALT) 11 U/L (12-78) L Alkaline Phosphatase 113 U/L (46-116) Total Protein 9.0 G/DL (6.4-8.2) H Albumin 3.4 G/DL (3.4-5.0) Globulin 5.6 g/dL Albumin/Globulin Ratio 0.6 (1.0-2.7) L EKG Diagnostic Results EKG Time: 09:23 EP Interpretation: Sinus tachycardia, rate 103, QTc 489, no acute ST elevations , normal axis, Rhythm Strip Diag. Results Rhythm Strip Time: 09:28 EP Interpretation: yes Rate: 103 Rhythm: no PVC's, no ectopy, other - Sinus tachycardia Chest X-Ray Diagnostic Results Chest X-Ray Diagnostic Results : Chest X-Ray Ordered: Yes # of Views/Limited/Complete: 1 View Indication: Other - Preoperative EP Interpretation: Yes Interpretation: no consolidation, no effusion, no pneumothorax, no acute cardiopulmonary disease Impression: No acute disease Electronically Signed by: Isak Bonilla MD Last Vital Signs Date Time Temp Pulse Resp B/P (MAP) Pulse Ox O2 Delivery O2 Flow Rate FiO2 12/20/19 08:58 98.6 105 17 244/126 (165) 96 Room Air Disposition: ADMITTED INPATIENT Condition: Stable Referrals: Conor Falcon MD (PCP) Isak Bonilla MD Dec 20, 2019 09:13
[2019-12-20] MEDS ORDERED: CARVEDILOL3.125 MG ORAL (09:17)
[2019-12-20] MEDS ORDERED: METOPROLOL TAR100 M1 ORAL (09:17)
[2019-12-20] MEDS ORDERED: LISINOPRIL40 MG ORAL (09:17)
[2019-12-20] MEDS ORDERED: LANTUS SOL100 UNIT/1 SUBQ (09:17)
[2019-12-20 09:44] LABS: BASOPHILS % (AUTO) 1.2 % (0.0-2.0); HEMATOCRIT 38.7 % (42.0-52.0); HEMOGLOBIN 12.4 G/DL (14.2-18.0); LYMPHOCYTES % (AUTO) 16.9 % (20.0-45.0); MEAN CORPUSCULAR VOLUME 86 FL (80-99); MONOCYTES % (AUTO) 6.6 % (1.0-10.0); NEUTROPHILS % (AUTO) 72.4 % (45.0-75.0); PLATELET COUNT 359 K/UL (150-450); RED CELL DISTRIBUTION WIDTH 14.6 % (11.6-14.8); WHITE BLOOD COUNT 7.9 K/UL (4.8-10.8)
[2019-12-20 09:49] LABS: ANION GAP 18 mmol/L (5-15); BLOOD UREA NITROGEN 64 mg/dL (7-18); CALCIUM 9.3 MG/DL (8.5-10.1); CARBON DIOXIDE 23 MMOL/L (21-32); CHLORIDE 93 MMOL/L (98-107); CREATININE 16.4 MG/DL (0.55-1.30); POTASSIUM 3.5 MMOL/L (3.5-5.1); SODIUM 134 MMOL/L (136-145)
[2019-12-20 09:55] LABS: ALANINE AMINOTRANSFERASE 11 U/L (12-78); ALBUMIN 3.4 G/DL (3.4-5.0); ALBUMIN/GLOBULIN RATIO 0.6 (1.0-2.7); ALKALINE PHOSPHATASE 113 U/L (46-116); ASPARTATE AMINO TRANSFERASE 16 U/L (15-37); BILIRUBIN,TOTAL 0.9 MG/DL (0.2-1.0)
[2019-12-20] MEDS ORDERED: Labetalol 5mg/ml 20ml vial IV ONE ×3 (10:30→14:15)
--- NOTE | 2019-12-20 10:32 | Diagnostic Imaging Report ---
Indication: Dyspnea Comparison: 05/23/2018 A single view chest radiograph was obtained. Findings: Cardiomediastinal appearance is within normal limits for age. Right permacath noted. The lungs are clear. Pulmonary vascularity is appropriate. The diaphragmatic contour is smooth and costophrenic angles are sharp. No pleural effusions are identified. The bones are unremarkable. Impression: No acute findings
[2019-12-20] MEDS ORDERED: Morphine Sulfate 4mg/ml Inj (IV USE ONLY) IVP ONE (11:00)
--- NOTE | 2019-12-20 17:50 | NUR ---
ED Nurse Note: REPORT GIVEN TO EUGENIE SERVIN ON 3E
--- NOTE | 2019-12-20 18:05 | NUR ---
ED Nurse Note: Pt transferred safely to 3E.
[2019-12-20] MEDS ORDERED: CATAPRES0.2 MG ORAL (18:30)
--- NOTE | 2019-12-20 18:53 | NUR ---
NURSE NOTES: Patient arrived to unit at 1800 via bed, no acute distress noted, reporting no pain, belongings checked at bedside. VS taken, patient was saturating 87% on RA, placed patient on 3L NC, patient saturating 92-94% on NC. Patient reporting no shortness of breath, patient denies headache/dizziness. Home medications reviewed with patient, entered into [facility] and list sent to pharmacy. Patient wearing boot on left foot, patient reports he has a diabetic ulcer on his left foot. 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
--- NOTE | 2019-12-20 19:10 | NUR ---
NURSE NOTES: Receive a report from EUGENIE Dsouza. Round is done. No acute distress noted. Breathing is even and non labored. Denies any pain. Perma catheter insertion on right upper chest kept clean. On boot on left foot for diabetic ulcer, which pt has been treatment @ home with home health every other day. Denies pain. Will check it soon. H/L on left AC intact. Unit orientation given. Call light within reach. Will continue to monitor.
--- NOTE | 2019-12-20 19:16 | NUR ---
HAND-OFF: Report given to Dev TRAORE. Endorsed admission.
--- NOTE | 2019-12-20 20:15 | NUR ---
NURSE NOTES: Call to Dr. Delarosa for admission. Asked to call Dr. Falcon for admission orders and contact to Dr. Marques. Will continue to follow up.
--- NOTE | 2019-12-20 20:20 | NUR ---
NURSE NOTES: Call to Dr. Falcon and receive admission orders including prn BP medication, wound care team, and contacting Radiology for reinsertion Perma catheter. Read back orders. Order noted and carried out. Will continue to monitor. Addendum: 12/21/19 at 0514 by Dev Desouza RN Made Dr. Falcon about elevated BP and SD. Will continue to monitor.
[2019-12-20] MEDS ORDERED: HydrALAZINE 25mg tab ORAL SCH (21:00)
[2019-12-20] MEDS ORDERED: NovoLOG Insulin Flexpen SUBQ PRN (21:15)
[2019-12-20] MEDS: cloNIDine 0.2mg Tab ORAL SCH (22:56)
[2019-12-20] MEDS: Metoprolol Tartrate 100mg tab ORAL SCH (22:56)
[2019-12-20] MEDS: Levemir Flexpen SUBQ SCH (22:59)
--- NOTE | 2019-12-20 23:00 | NUR ---
NURSE NOTES: BP checked as 199/100mmHg, LA: 103bmp. No HANEY, neck stiffness or chest discomfort noted. Pt says that his BP has been high at home and did not take BP medication today. Given routine BP medication. CN made aware. Will continue to monitor.
[2019-12-21] VITALS (9 sets, daily range): BP systolic 134–184; BP diastolic 76–110
[2019-12-21] MEDS: HydrALAZINE 25mg tab ORAL PRN ×3 (00:07→09:26)
--- NOTE | 2019-12-21 00:15 | NUR ---
NURSE NOTES: Still BP checked as 184/110mmHg and CO: 101 bmp. Given prn medication as ordered. CN spoke to Dr. Delarosa and receive a prn BP medication and communicated with Visual Merchandising Coordinator for pt's conditions. Will continue to monitor.
--- NOTE | 2019-12-21 00:16 | NUR ---
After patient received night time routine medications, metoprolol and clonidine, blood pressure was still elevated after recheck SBP >180. Patient was given hydralazine PO at this time. Dr Delarosa was paged and is aware of all of this. He did not order any telemetry monitoring or upgrade to another unit, but he ordered a prn PO clonidine 0.1 q6h.
--- NOTE | 2019-12-21 01:00 | NUR ---
NURSE NOTES: BP still runs high as [id number], HI: 94bmp. Given prn Clonidine 0.1mg 1t po. No noted HANEY. check left foot diabetic ulcer. Clean with NS wound solution and done dressing. Wound bed is clean and no discharge noted. Photos are taken. Denies pain. Will continue to monitor.
--- NOTE | 2019-12-21 02:30 | NUR ---
NURSE NOTES: Rechecked BP: 145/84mmHg, CA: 87bmp. Updated to CN. Will continue to monitor.
--- NOTE | 2019-12-21 06:00 | NUR ---
NURSE NOTES: No acute distress noted. Denies pain. BP: 169/99mmHg. Pt has PD line inserted state and says that he does not use it. Insertion site is open and clear. Will continue to monitor.
[2019-12-21 06:24] LABS: BASOPHILS % (AUTO) 1.3 % (0.0-2.0); EOSINOPHILS % (AUTO) 2.3 % (0.0-3.0); HEMATOCRIT 30.8 % (42.0-52.0); HEMOGLOBIN 10.1 G/DL (14.2-18.0); LYMPHOCYTES % (AUTO) 19.3 % (20.0-45.0); MEAN CORPUSCULAR VOLUME 87 FL (80-99); MONOCYTES % (AUTO) 7.8 % (1.0-10.0); NEUTROPHILS % (AUTO) 69.3 % (45.0-75.0); PLATELET COUNT 290 K/UL (150-450); RED BLOOD COUNT 3.54 M/UL (4.70-6.10); RED CELL DISTRIBUTION WIDTH 14.8 % (11.6-14.8); WHITE BLOOD COUNT 8.4 K/UL (4.8-10.8)
[2019-12-21] MEDS: cloNIDine 0.2mg Tab ORAL SCH ×3 (06:32→21:01)
[2019-12-21] MEDS: NovoLOG Insulin Flexpen SUBQ SCH ×4 (06:34→20:57)
[2019-12-21 06:46] LABS: ANION GAP 16 mmol/L (5-15); BLOOD UREA NITROGEN 74 mg/dL (7-18); CALCIUM 8.9 MG/DL (8.5-10.1); CARBON DIOXIDE 24 MMOL/L (21-32); CHLORIDE 97 MMOL/L (98-107); CREATININE 18.1 MG/DL (0.55-1.30); POTASSIUM 4.5 MMOL/L (3.5-5.1); SODIUM 136 MMOL/L (136-145)
--- NOTE | 2019-12-21 07:30 | NUR ---
NURSE NOTES: Report received from EUGENIE Méndez. Patient is seen at bed, HOB elevated. Patient eating breakfast. Is in stable condition, no signs of distress noted. Patient denies any pain. R permacath noted and peritoneal dialysis site noted at the abdomen. Patient has a left foot diabetic ulcer. Clean and intact dressing. Side rails up x 2. Bed is low and locked. Call light within reach. Will continue to monitor.
--- NOTE | 2019-12-21 07:30 | NUR ---
HAND-OFF: Report given to Leland/Fely Jackson. Round is done.
[2019-12-21] MEDS ORDERED: Lisinopril 20mg tab ORAL SCH (09:00)
[2019-12-21] MEDS: Metoprolol Tartrate 100mg tab ORAL SCH ×2 (09:05→17:26)
[2019-12-21] MEDS: HydrALAZINE 50mg tab ORAL SCH ×3 (10:49→21:01)
--- NOTE | 2019-12-21 10:49 | NUR ---
CASE MANAGEMENT: NOTE SPOKE TO JANA FROM [facility] T: [phone] INFORM HER OF PATIENT WILL HAVE DIALYSIS CATHETER [place] [facility] [place] REPLACEMENT CATH ORDERED BY DR ADAMS
--- NOTE | 2019-12-21 10:57 | NUR ---
At 0926, patient was given Hydralazine 25 mg PO PRN for elevated BP of 160/92. Reassessed BP at 1030, BP is 160/94. Dr. Falcon aware. Given Hydralazine 50 mg. Patient denies any chest pain or headache. Will continue to monitor and reassess BP.
--- NOTE | 2019-12-21 11:23 | Consultation ---
History of Present Illness General Date patient seen: Dec 21, 2019 Reason for Hospitalization: Hypertension Present Illness HPI 39 year old male with history of ESRD on HD had a right chest wall permacath placed 1 year ago and well since but last dialysis noted to be clotted and not functional. came to ED for evaluation. surgery called to evaluate and assist with care. patient seen, chart reviewed, patient examined. states otherwise well. noted bilateral lower extremity chronic skin changes as well. patient states he gets dry skin and develops ulcers that heal slowly. no n/v/f/c. otherwise well. labs noted. discussed with pcp and nephrology. Allergies: Coded Allergies: No Known Allergies (Unverified , 05/23/18) COVID-19 Screening Contact w/high risk pt: No Recent Travel to affected area: No Experienced COVID-19 symptoms?: No Medication History Scheduled Clonidine Hcl* (Catapres*), 0.2 MG ORAL Q8HR, (Reported) Insulin Glargine (Lantus), 40 UNITS SUBQ DAILY, (Reported) Lisinopril* (Lisinopril*), 40 MG ORAL DAILY, (Reported) Metoprolol Tartrate* (Metoprolol Tartrate*), 100 MG ORAL THREE TIMES A DAY, ( Reported) Sitagliptin (Januvia), 100 MG ORAL DAILY, (Reported) Discontinued Medications Amlodipine Besylate (Norvasc), 10 MG ORAL DAILY Discontinued Reason: Pt stopped taking med Amlodipine Besylate (Norvasc), 10 MG ORAL DAILY, (Reported) Discontinued Reason: Pt stopped taking med Atorvastatin Calcium* (Lipitor*), 40 MG ORAL BEDTIME Discontinued Reason: Pt stopped taking med Atorvastatin Calcium* (Lipitor*), 40 MG ORAL DAILY, (Reported) Discontinued Reason: Pt stopped taking med Carvedilol* (Carvedilol*), Unknown Dose ORAL EVERY 12 HOURS, (Reported) Discontinued Reason: Pt stopped taking med Clopidogrel Bisulfate* (Plavix*), 75 MG ORAL DAILY Discontinued Reason: Pt stopped taking med Clopidogrel Bisulfate* (Plavix*), 75 MG ORAL DAILY, (Reported) Discontinued Reason: Pt stopped taking med Gabapentin* (Gabapentin*), 800 MG ORAL THREE TIMES A DAY, (Reported) Discontinued Reason: Pt stopped taking med Gabapentin* (Neurontin*), 800 MG ORAL Q8H, (Reported) Discontinued Reason: Pt stopped taking med Hydralazine HCl (Hydralazine HCl), 25 MG PO EVERY 8 HOURS, (Reported) Discontinued Reason: Pt stopped taking med Hydralazine Hcl* (Hydralazine Hcl*), 25 MG ORAL Q8HR Discontinued Reason: Pt stopped taking med Indomethacin (Indocin), 50 MG ORAL BID, (Reported) Discontinued Reason: Pt stopped taking med Indomethacin (Indocin), 75 MG ORAL BID, (Reported) Discontinued Reason: Pt stopped taking med Insulin Detemir (Levemir Flexpen), 50 UNITS SUBQ ACBREAKFAST Discontinued Reason: Pt stopped taking med Insulin Detemir (Levemir Flexpen), 50 SUBQ, (Reported) Discontinued Reason: Pt stopped taking med Metoprolol Tartrate* (Metoprolol Tartrate*), 50 MG ORAL EVERY 12 HOURS Discontinued Reason: Pt stopped taking med Metoprolol Tartrate* (Metoprolol Tartrate*), 50 MG ORAL EVERY 12 HOURS, ( Reported) Discontinued Reason: Pt stopped taking med Patient History History Provided By: Patient, Medical Record, PMD Healthcare decision maker N Resuscitation status Full Code Advanced Directive on File Past Medical/Surgical History Past Medical/Surgical History: (1) Diabetic nephropathy (2) Hypertensive kidney disease (3) Acute CVA (cerebrovascular accident) (4) Anemia in chronic kidney disease (CKD) (5) Complication, dialysis catheter clot or failure (6) Dialysis catheter clot or failure Review of Systems Review of Symptoms General ROS: no weight loss or fever Psychological ROS: no depression or mood changes, no memory loss Ophthalmic ROS: no visual changes or eye irritation ENT ROS: no nasal congestion, hearing loss, dizziness Allergy and Immunology ROS: no allergic symptoms or urticaria Hematological and Lymphatic ROS: no swollen glands, unusual bleeding or bruising Endocrine ROS: no polyuria, polydipsia, weight changes, temperature intolerance Respiratory ROS: no cough, shortness of breath, or wheezing Cardiovascular ROS: no chest pain or dyspnea on exertion Gastrointestinal ROS: denies abdominal pain, bright red blood in stool. Musculoskeletal ROS: no myalgias or arthralgias Neurological ROS: no TIA or stroke symptoms Dermatological ROS: no new or changing skin lesions, rashes or pruritis Physical Exam Physical Exam General appearance: alert, cooperative, no distress, appears stated age Head: Normocephalic, without obvious abnormality, atraumatic Eyes: conjunctivae/corneas clear. PERRL, EOM's intact. Fundi benign Throat: Lips, mucosa, and tongue normal. Teeth and gums normal Neck: supple, symmetrical, trachea midline, no adenopathy, thyroid: not enlarged, symmetric, no tenderness/mass/nodules, no carotid bruit and no JVD Lungs: clear to auscultation bilaterally Heart: regular rate and rhythm, S1, S2 normal, no murmur, click, rub or gallop Abdomen: soft, non-tender. Bowel sounds normal. No masses, no organomegaly Extremities: extremities with chronic skin changes, dry skin, healed ulcerations Pulses: 2+ and symmetric Skin: Skin color, texture, turgor normal. No rashes or lesions Neurologic: Grossly normal Last 24 Hour Vital Signs Date Time Temp Pulse Resp B/P (MAP) Pulse Ox O2 Delivery O2 Flow Rate FiO2 12/21/19 10:49 160/94 12/21/19 09:26 160/92 12/21/19 09:06 160/92 12/21/19 09:05 80 160/92 12/21/19 09:00 Room Air 12/21/19 08:00 97.7 80 18 160/92 (114) 95 12/21/19 06:32 166/99 12/21/19 06:00 166/99 (121) 12/21/19 04:26 165/99 12/21/19 04:20 98.3 87 18 165/99 (121) 93 12/21/19 02:30 87 145/84 (104) 12/21/19 01:09 174/101 12/21/19 01:00 94 174/101 (125) 12/21/19 00:07 184/110 12/21/19 00:00 97.4 101 18 184/110 (134) 92 12/20/19 22:56 106 199/118 12/20/19 22:56 199/118 12/20/19 22:45 Room Air 12/20/19 22:45 103 199/118 (145) 12/20/19 21:00 Room Air 12/20/19 20:00 97.4 106 18 128/98 (108) 96 12/20/19 18:05 97.1 97 20 161/78 99 Nasal Cannula 2.0 12/20/19 18:00 98.8 103 20 178/96 (123) 92 12/20/19 17:48 157/77 12/20/19 17:48 157/77 12/20/19 16:50 98.2 98 20 157/77 99 Nasal Cannula 2.0 12/20/19 16:21 175/110 12/20/19 14:24 99 195/110 12/20/19 14:24 195/110 12/20/19 13:51 98.2 97 20 161/89 99 Nasal Cannula 2.0 12/20/19 11:45 99 20 173/85 99 Nasal Cannula 2.0 12/20/19 11:31 105 200/100 12/20/19 11:31 200/100 Intake and Output 12/20/19 12/21/19 19:00 07:00 Intake Total 0 ml 80 ml Balance 0 ml 80 ml Intake Oral 0 ml 80 ml Laboratory Tests Test 12/21/19 05:25 White Blood Count 8.4 K/UL (4.8-10.8) Red Blood Count 3.54 M/UL (4.70-6.10) L Hemoglobin 10.1 G/DL (14.2-18.0) L Hematocrit 30.8 % (42.0-52.0) L Mean Corpuscular Volume 87 FL (80-99) Mean Corpuscular Hemoglobin 28.4 PG (27.0-31.0) Mean Corpuscular Hemoglobin Concent 32.7 G/DL (32.0-36.0) Red Cell Distribution Width 14.8 % (11.6-14.8) Platelet Count 290 K/UL (150-450) Mean Platelet Volume 5.6 FL (6.5-10.1) L Neutrophils (%) (Auto) 69.3 % (45.0-75.0) Lymphocytes (%) (Auto) 19.3 % (20.0-45.0) L Monocytes (%) (Auto) 7.8 % (1.0-10.0) Eosinophils (%) (Auto) 2.3 % (0.0-3.0) Basophils (%) (Auto) 1.3 % (0.0-2.0) Sodium Level 136 MMOL/L (136-145) Potassium Level 4.5 MMOL/L (3.5-5.1) Chloride Level 97 MMOL/L (98-107) L Carbon Dioxide Level 24 MMOL/L (21-32) Anion Gap 16 mmol/L (5-15) H Blood Urea Nitrogen 74 mg/dL (7-18) H Creatinine 18.1 MG/DL (0.55-1.30) H Estimat Glomerular Filtration Rate 3.6 mL/min (>60) Glucose Level 281 MG/DL (74-106) H Hemoglobin A1c 11.6 % (4.3-6.0) H Calcium Level 8.9 MG/DL (8.5-10.1) Microbiology Date/Time Source Procedure Growth Status 12/20/19 23:00 Rectum Received Height (Feet): 6 Height (Inches): 4.00 Weight (Pounds): 209 Medications Current Medications Medications (Trade) Dose Ordered Sig/Jessika Route PRN Reason Start Time Stop Time Status Last Admin Dose Admin Clonidine HCl (Catapres tab) 0.3 mg Q8HR ORAL 12/21/19 14:00 03/19/20 21:59 Dextrose (Dextrose 50%) 25 ml Q30M PRN IV Hypoglycemia 12/20/19 23:00 03/19/20 22:59 Dextrose (Dextrose 50%) 50 ml Q30M PRN IV Hypoglycemia 12/20/19 23:00 03/19/20 22:59 Hydralazine HCl (Apresoline) 25 mg Q3HR PRN ORAL For High Blood Pressure 12/20/19 21:15 03/19/20 20:59 12/21/19 09:26 Hydralazine HCl (Apresoline) 50 mg Q8HR ORAL 12/21/19 10:00 03/20/20 09:59 12/21/19 10:49 Insulin Aspart (NovoLOG) BEFORE MEALS AND HS SUBQ 12/21/19 06:30 03/20/20 06:29 12/21/19 11:08 Insulin Detemir (Levemir) 40 units BEDTIME SUBQ 12/20/19 22:30 03/19/20 22:29 12/20/19 22:59 Lisinopril (PriniviL) 40 mg BID ORAL 12/21/19 18:00 01/20/20 08:59 Metoprolol Tartrate (Lopressor) 100 mg BID ORAL 12/21/19 18:00 03/19/20 21:14 Sitagliptin Phosphate (Januvia) 100 mg DAILY ORAL 12/21/19 09:00 01/20/20 08:59 12/21/19 09:05 Assessment/Plan Problem List: (1) Complication, dialysis catheter clot or failure SNOMED: 75898869 (2) Dialysis catheter clot or failure SNOMED: 50225799 (3) Hemodialysis catheter malfunction Assessment & Plan: 39M ESRD 2/2 DM on HD via right chest wall permacath placed 1 year ago now non functional. will plan for eval of catheter. if unable to declot will need removal of malfunctioning catheter and placement of new temp or tunneled catheter. currently labs noted and stable discussed with pcp and nephrology thank you will follow with recs ICD Codes: T82.41XA - Breakdown (mechanical) of vascular dialysis catheter, initial encounter SNOMED: 089612788 (4) Diabetic ulcer of ankle Assessment & Plan: discussed with patient peripheral dm neuropathy. will need to monitor closely instructions and care plan given to patient he will protect and monitor skin protectant provided ICD Codes: E11.622 - Type 2 diabetes mellitus with other skin ulcer; L97.309 - Non-pressure chronic ulcer of unspecified ankle with unspecified severity SNOMED: 77292940, [id number], [id number] Jan Marques Dec 21, 2019 11:23
--- NOTE | 2019-12-21 11:32 | History and Physical Report ---
DATE OF ADMISSION: 12/20/2019 HISTORY OF PRESENT ILLNESS: This is a 39-year-old male with history of ESRD, on dialysis. He has been in the hospital with significant hypertension as well as missed dialysis due to clogging of his right subclavian dialysis PermCath. Initially, he was planned to be transferred to outside hospital. However, given his significant hypertension, he has been unstable, admitted to the hospital. Plans were noted for placement of PermCath by Dr. Marques. PAST MEDICAL HISTORY: 1. Notable for ESRD on dialysis. 2. Hypertension. 3. Diabetes mellitus. REVIEW OF SYSTEMS: Denies any headaches, hematemesis, melena, hematochezia, night sweats, or weight loss. PAST SURGICAL HISTORY: Right PermCath. PHYSICAL EXAMINATION: VITAL SIGNS: Blood pressure 160/90, heart rate is 80, respirations are 18, O2 saturation 98% on room air. GENERAL: Reveals a 39-year-old male. HEENT: Unremarkable. LUNGS: Decreased breath sounds bilaterally. HEART: Normal heart sounds. ABDOMEN: Soft. Right PermCath is noted. LAB DATA: Lab testing shows hemoglobin of 10, otherwise normal CBC. BMP notable for creatinine of 18 and potassium is 4.5. IMAGING STUDIES: X-ray of chest obtained, which showed evidence of mild pulmonary edema. IMPRESSION: 1. Missed dialysis. 2. Clogged subclavian PermCath. 3. ESRD on dialysis. 4. Hypertension. 5. Diabetes. DISCUSSION: Admit to the hospital. Discussed with Dr. Marques. Plans are for placement of the PermCath. Continue medications. Follow carefully. nAthony Delarosa M.D. DR: MELBA JOB#: [id number] CC:
--- NOTE | 2019-12-21 11:47 | Consultation ---
DATE OF CONSULTATION: 12/21/2019 CONSULTING PHYSICIAN: Conor Falcon M.D. REASON FOR CONSULTATION: 1. Nonfunctioning dialysis catheter. 2. End-stage renal disease, on dialysis. HISTORY OF PRESENT ILLNESS: The patient is a 39-year-old gentleman on hemodialysis every Wednesday, , and Wednesday, who presented due to nonfunctioning dialysis catheter for several treatments. The patient is noncompliant with his diet and antihypertensive medications. He has decided not to proceed with peritoneal dialysis and his current PermCath is not working. PAST MEDICAL HISTORY: 1. Diabetes. 2. Hypertension. 3. Chronic kidney disease. 4. Secondary hyperparathyroidism. 5. Diabetic foot ulcers. PAST SURGICAL HISTORY: 1. PD catheter. 2. PermCath. ALLERGIES: No known drug allergies. FAMILY HISTORY: Positive for hypertension and diabetes. PHYSICAL EXAMINATION: VITAL SIGNS: Blood pressure 160/92, pulse 80, temperature 97.7, and 95% oxygen saturation on room air. GENERAL: The patient is awake and alert, not in distress. HEENT: Extraocular muscles intact. No lymphadenopathy noted. CARDIOVASCULAR: S1, S2. No rubs or gallops. PULMONARY: Clear to auscultation bilaterally. No rales, rhonchi, or wheezes. ABDOMEN: Nondistended and nontender. EXTREMITIES: 2+ edema. LABORATORY DATA: Labs dated 12/21/2019, white cell count 8.4, hemoglobin 10.1. Sodium 136, potassium 4.5, creatinine 18, and BUN 74. ASSESSMENT AND PLAN: 1. End-stage renal disease, on hemodialysis. The patient will undergo hemodialysis today once new dialysis catheter has been placed. 2. Nonfunctioning PermCath. I have spoken to Interventional Radiology to replace nonfunctioning catheter. 3. Hypertension. The patient is noncompliant with antihypertensive regimen. We will try to adjust during this hospitalization. 4. Diabetes mellitus. We will defer to primary care physician. 5. DVT prophylaxis with SCDs. Conor Falcon MD DR: MCKENNA JOB#: [id number] CC:
--- NOTE | 2019-12-21 11:50 | NUR ---
CASE MANAGEMENT: INITIAL REVIEW 39YR OLD MALE FROM D[facility]IS [facility] CC: CLOGGED PERMA-CATH IN RIGHT CHEST; UNABLE TO FINISH HD SESSION; LEG CRAMPING SI:DIALYSIS FAILURE 98.6 105 17 224/126 96% ON RA H/H 12.4/38.7 NA+134 CL-93 ANION GAP 18 BUN 64 CREAT 16.4 BG 335 IS:IV HYDRALAZINE X2 IV LABETALOL X2 IV ZOFRAN X1 IV MORPHINE SULFATE X1 CHEST X-RAY- NO ACUTE FINDINGS \: 3E MED SURG UNIT DCP: HOME WHEN STABLE PLAN: PATIENT TO BE TRANSFERRED TO [facility] CASE MANAGEMENT: REVIEW 12/21/19 SI:DIALYSIS CATHETER FAILURE 97.7 80 18 160/92 95% ON RA H/H 10.1/30.8 CL-97 ANION GAP 16 BUN 74 CREAT 18.1 BG 281 HA1C 11.6 IS:HYDRALAZINE PO Q8HR HYDRALAZINE Q3HR/PRN NOVOLOG SQ QAC&HS LEVEMIR SQ QHS JANUVIA PO QD \: 3E MED SURG UNIT DCP: HOME WHEN STABLE PLAN[place] [facility] [place]
--- NOTE | 2019-12-21 13:00 | NUR ---
NURSE NOTES: computer systems support specialist SOLANGE Alonzo, saw the patient and changed dressing change with Betadine, ABD, and Kerlix wrap. per her recommendation to change dressing once a day. wound is in the left plantar foot, 11.5cm x2.2cm, granulated, no leakage noted. picture taken by draw frame operator nurse Dev TRAORE. I will f/u as needed.
--- NOTE | 2019-12-21 14:03 | NUR ---
NURSE NOTES:WOUND CARE NOTES:Pt presented on admission with diabetic ulcer Plantar L foot. Pt stated he developed wound in August 2019 after pulling skin off bottom of foot. Pt also stated he was being treated by a spring former in the community.Hemosiderin with hyperkeratoses skin both lower extremities. Elongated wound plantar L foot. Base of wound is moist, pink and hypergranular. Edges are macerated. No odor or exudate noted. Hyperkeratosis noted periwound. Pt has been educated on diabetic foot care. Pt instructed to check feet daily. Instructed on keeping both lower extremities moisturized but to avoid applying lotion between toes. Instructed to thoroughly dry between toes after showers and to wear clean cotton socks daily. Tx.Plan:Clean L foot with Betadine. Cover with Abd pad. Wrap with Kerlix Daily and prn. Moisturize both lower ext with Lotion daily .
--- NOTE | 2019-12-21 16:12 | NUR ---
*-* INSURANCE *-* ALL CLINICALS AND REVIEWS HAVE BEEN FAXED TO: [facility] [employer] [facility] P:[phone] F:[phone] & [employer] F: [phone]
--- NOTE | 2019-12-21 16:45 | NUR ---
NURSE NOTES: Given report to Benito RN, pt a/a/o x4 laying in bed with no signs of distress or other issues at this time. Incoming nurse will f/u as needed.
[2019-12-21] MEDS: Lisinopril 20mg tab ORAL SCH (17:26)
[2019-12-21] MEDS ORDERED: HYDROcodone/Acetamin 5/325 tab ORAL PRN (17:45)
[2019-12-21] MEDS ORDERED: HUMALOG100 UNIT/4 SUBQ (17:53)
--- NOTE | 2019-12-21 19:26 | NUR ---
NURSE NOTES: Received report from Benito Mercer RN. Rounding is done with outgoing nurse. Patient in bed, a/o x4, and able to known his needs. Denied any pain or distress at this time. R permacath noted and peritoneal dialysis site noted at the abdomen. Patient has a left foot diabetic ulcer. Dressing is C/D/I. IV site is intact and patient. Bed is on alarm, locked, and lowest position. Call light within reach. Will continue to monitor.
--- NOTE | 2019-12-21 19:36 | NUR ---
HAND-OFF: Report given to Carolina GLASER RN.
[2019-12-21] MEDS: Levemir Flexpen SUBQ SCH (20:57)
[2019-12-22] VITALS (12 sets, daily range): BP systolic 127–178; BP diastolic 73–104
[2019-12-22] MEDS: HydrALAZINE 50mg tab ORAL SCH (06:00)
[2019-12-22] MEDS: cloNIDine 0.2mg Tab ORAL SCH (06:00)
[2019-12-22] MEDS: NovoLOG Insulin Flexpen SUBQ SCH ×2 (06:14→10:59)
[2019-12-22 06:20] LABS: BASOPHILS % (AUTO) 1.1 % (0.0-2.0); EOSINOPHILS % (AUTO) 4.1 % (0.0-3.0); HEMATOCRIT 32.8 % (42.0-52.0); HEMOGLOBIN 10.7 G/DL (14.2-18.0); LYMPHOCYTES % (AUTO) 22.2 % (20.0-45.0); MEAN CORPUSCULAR VOLUME 86 FL (80-99); MONOCYTES % (AUTO) 6.4 % (1.0-10.0); NEUTROPHILS % (AUTO) 66.2 % (45.0-75.0); PLATELET COUNT 321 K/UL (150-450); RED CELL DISTRIBUTION WIDTH 14.9 % (11.6-14.8); WHITE BLOOD COUNT 7.9 K/UL (4.8-10.8)
[2019-12-22 06:39] LABS: ANION GAP 14 mmol/L (5-15); BLOOD UREA NITROGEN 76 mg/dL (7-18); CALCIUM 8.7 MG/DL (8.5-10.1); CARBON DIOXIDE 24 MMOL/L (21-32); CHLORIDE 98 MMOL/L (98-107); CREATININE 18.9 MG/DL (0.55-1.30); SODIUM 136 MMOL/L (136-145)
--- NOTE | 2019-12-22 07:06 | NUR ---
HAND-OFF: Report given to Maggie RTAORE. Patient in stable condition.
--- NOTE | 2019-12-22 07:16 | NUR ---
NURSE NOTES: Received report from EUGENIE Putnam. Patient is at bed, HOB elevated, and asleep. Patient is comfortable and denies any pain. LAC 22gauge saline lock noted. Patient is NPO since midnight. No signs of distress. Patient has Call light within reach. Side rails up x2. Bed is in low and locked position. Will continue to monitor.
[2019-12-22] MEDS ORDERED: Heparin Sod 1000 units/ml 10ml INJ PRN (07:45)
[2019-12-22] MEDS ORDERED: Heparin1,000 units/500ml Premix(Conc:2 units/ml) INJ PRN (07:45)
[2019-12-22] MEDS ORDERED: Lidocaine 2% 20mg/ml/Epi 0.005mg/ml 20ml vial INJ PRN (07:45)
[2019-12-22] MEDS ORDERED: ceFAZolin sod 1 GM in D5W 55 ML IVPB SCH (08:30)
--- NOTE | 2019-12-22 09:39 | NUR ---
NURSE NOTES: Received report from Ziggy TRAORE, pt was able to tolerated procedure with no signs of distress or other issues at this time. dressing sutured in the right upper chest with Biopatch and Tegaderm, per report ok to use cath today for HD. RN will call DR. Falcon to inform of the above. I will f/u as needed.
--- NOTE | 2019-12-22 09:44 | Pre-Procedure Note/Attestation ---
Pre-Procedure Note/Attestation Complete Prior to Procedure Planned Procedure: right Procedure Narrative: dialysis catheter evaluation, possible exchange Indications for Procedure Pre-Operative Diagnosis: ESRD, malfunctioning HD catheter Attestation I attest that I discussed the nature of the procedure; its benefits; risks and complications; and alternatives (and the risks and benefits of such alternatives ), prior to the procedure, with the patient (or the patient's legal client care representative). I attest that, if there was a reasonable possibility of needing a blood transfusion, the patient (or the patient's legal client care representative) was given the [facility] standardized written summary, pursuant to the Brown Shailesh Blood Safety Act ([place] Health and Safety Code # 1645, as amended). I attest that I re-evaluated the patient just prior to the surgery and that there has been no change in the patient's H&P, except as documented below: Eulalio Gibbons M.D. Dec 22, 2019 09:44
--- NOTE | 2019-12-22 10:30 | Pulmonology Progress Note ---
Assessment/Plan Assessment/Plan IMPRESSION: 1. Missed dialysis. 2. Clogged subclavian PermCath. 3. ESRD on dialysis. 4. Hypertension. 5. Diabetes. DISCUSSION: Discussed with Dr. Marques. Plans are for placement of the PermCath. Continue medications. Follow carefully. discharged home if cleared by nephrology Subjective Interval Events: For permacath insertion today Constitutional: Reports: no symptoms HEENT: Repors: no symptoms Respiratory: Reports: no symptoms Cardiovascular: Reports: no symptoms Gastrointestinal/Abdominal: Reports: no symptoms Allergies: Coded Allergies: No Known Allergies (Unverified , 05/23/18) Objective Last 24 Hour Vital Signs Date Time Temp Pulse Resp B/P (MAP) Pulse Ox O2 Delivery O2 Flow Rate FiO2 12/22/19 09:56 97.2 78 18 134/87 (103) 96 12/22/19 09:40 78 18 163/95 (117) 100 12/22/19 09:35 80 18 165/97 (119) 100 12/22/19 09:30 81 18 178/104 (128) 100 12/22/19 09:25 77 18 169/104 (125) 99 12/22/19 09:20 73 18 154/97 (116) 100 12/22/19 09:15 73 18 150/95 (113) 99 12/22/19 09:00 Room Air 12/22/19 08:47 75 18 12/22/19 08:00 98.1 74 143/84 (103) 12/22/19 06:00 134/75 12/22/19 06:00 134/75 12/22/19 04:00 97.6 74 18 134/75 (94) 95 12/22/19 00:00 98.1 67 20 130/74 (92) 95 12/21/19 21:01 134/76 12/21/19 21:01 134/76 12/21/19 21:00 Room Air 12/21/19 20:00 97.6 74 18 134/76 (95) 97 12/21/19 17:26 74 141/78 12/21/19 17:26 141/78 12/21/19 16:00 97.5 74 18 141/78 (99) 94 12/21/19 13:59 162/94 12/21/19 13:58 162/94 12/21/19 12:00 97.5 79 18 161/95 (117) 98 12/21/19 10:49 160/94 Intake and Output 12/21/19 12/22/19 19:00 07:00 Intake Total 120 ml Balance 120 ml Intake Oral 120 ml # Bowel Movements 1 General Appearance: no acute distress HEENT: normocephalic Respiratory/Chest: chest wall non-tender Cardiovascular: normal peripheral pulses Abdomen: normal bowel sounds Microbiology Date/Time Source Procedure Growth Status 12/20/19 23:00 Rectum Received Laboratory Tests 12/22/19 05:40: White Blood Count 7.9, Red Blood Count 3.80L, Hemoglobin 10.7L, Hematocrit 32.8L , Mean Corpuscular Volume 86, Mean Corpuscular Hemoglobin 28.1, Mean Corpuscular Hemoglobin Concent 32.6, Red Cell Distribution Width 14.9H, Platelet Count 321, Mean Platelet Volume 5.6L, Neutrophils (%) (Auto) 66.2, Lymphocytes (%) (Auto) 22.2, Monocytes (%) (Auto) 6.4, Eosinophils (%) (Auto) 4.1H, Basophils (%) (Auto) 1.1, Sodium Level 136, Potassium Level 5.0, Chloride Level 98, Carbon Dioxide Level 24, Anion Gap 14, Blood Urea Nitrogen 76H, Creatinine 18.9H, Estimat Glomerular Filtration Rate 3.4, Glucose Level 104#, Calcium Level 8.7 Current Medications Medications (Trade) Dose Ordered Sig/Jessika Route PRN Reason Start Time Stop Time Status Last Admin Dose Admin Acetaminophen/ Hydrocodone Bitart ([place] 5/325) 1 tab Q6H PRN ORAL For Pain 12/21/19 17:45 12/28/19 17:44 12/21/19 18:25 Cefazolin Sodium 1 gm/Dextrose 55 ml @ 110 mls/hr ONCE IVPB 12/22/19 08:30 12/22/19 16:00 Clonidine HCl (Catapres tab) 0.3 mg Q8HR ORAL 12/21/19 14:00 03/19/20 21:59 12/22/19 06:00 Dextrose (Dextrose 50%) 25 ml Q30M PRN IV Hypoglycemia 12/20/19 23:00 03/19/20 22:59 Dextrose (Dextrose 50%) 50 ml Q30M PRN IV Hypoglycemia 12/20/19 23:00 03/19/20 22:59 Heparin Sodium (Porcine) (Heparin Sod 1000 units/ml 10ml) 1,000 unit ONCE PRN INJ Cath Placement 12/22/19 07:45 12/22/19 23:59 Heparin Sodium/ Sodium Chloride (Heparin 1000 units/500ml Premix) 1,000 unit ONCE PRN INJ For Tunnel Cath Placement 12/22/19 07:45 12/23/19 23:59 Hydralazine HCl (Apresoline) 25 mg Q3HR PRN ORAL For High Blood Pressure 12/20/19 21:15 03/19/20 20:59 12/21/19 09:26 Hydralazine HCl (Apresoline) 50 mg Q8HR ORAL 12/21/19 10:00 03/20/20 09:59 12/22/19 06:00 Insulin Aspart (NovoLOG) BEFORE MEALS AND HS SUBQ 12/21/19 06:30 03/20/20 06:29 12/21/19 17:31 Insulin Detemir (Levemir) 40 units BEDTIME SUBQ 12/20/19 22:30 03/19/20 22:29 12/21/19 20:57 Lidocaine/ Epinephrine (Lidocaine 2%/ Epi 20ml) 40 ml ONCE PRN INJ Tunnel Cath Placement 12/22/19 07:45 12/22/19 23:59 Lisinopril (PriniviL) 40 mg BID ORAL 12/21/19 18:00 01/20/20 08:59 12/21/19 17:26 Metoprolol Tartrate (Lopressor) 100 mg BID ORAL 12/21/19 18:00 03/19/20 21:14 12/21/19 17:26 Sitagliptin Phosphate (Januvia) 100 mg DAILY ORAL 12/21/19 09:00 01/20/20 08:59 12/21/19 09:05 Anthony Delarosa MD Dec 22, 2019 10:30
--- NOTE | 2019-12-22 10:38 | Nephrology Progress Note ---
Assessment/Plan Assessment/Plan: A/P 1) ESRD- HD arranged at out patient at 330 2) HTN- at goal. Will DC home with Rx 3) NonFx catheter- new permactah placed 4) Anemia of CKd- EPO with HD Subjective Date patient seen: Dec 22, 2019 Time patient seen: 10:32 ROS Limited/Unobtainable: No Allergies: Coded Allergies: No Known Allergies (Unverified , 05/23/18) Subjective Patient feeling well, no catheter placed Objective Last 24 Hour Vital Signs Date Time Temp Pulse Resp B/P (MAP) Pulse Ox O2 Delivery O2 Flow Rate FiO2 12/22/19 09:56 97.2 78 18 134/87 (103) 96 12/22/19 09:40 78 18 163/95 (117) 100 12/22/19 09:35 80 18 165/97 (119) 100 12/22/19 09:30 81 18 178/104 (128) 100 12/22/19 09:25 77 18 169/104 (125) 99 12/22/19 09:20 73 18 154/97 (116) 100 12/22/19 09:15 73 18 150/95 (113) 99 12/22/19 09:00 Room Air 12/22/19 08:47 75 18 12/22/19 08:00 98.1 74 143/84 (103) 12/22/19 06:00 134/75 12/22/19 06:00 134/75 12/22/19 04:00 97.6 74 18 134/75 (94) 95 12/22/19 00:00 98.1 67 20 130/74 (92) 95 12/21/19 21:01 134/76 12/21/19 21:01 134/76 12/21/19 21:00 Room Air 12/21/19 20:00 97.6 74 18 134/76 (95) 97 12/21/19 17:26 74 141/78 12/21/19 17:26 141/78 12/21/19 16:00 97.5 74 18 141/78 (99) 94 12/21/19 13:59 162/94 12/21/19 13:58 162/94 12/21/19 12:00 97.5 79 18 161/95 (117) 98 12/21/19 10:49 160/94 Intake and Output 12/21/19 12/22/19 19:00 07:00 Intake Total 120 ml Balance 120 ml Intake Oral 120 ml # Bowel Movements 1 Laboratory Tests 12/22/19 05:40: White Blood Count 7.9, Red Blood Count 3.80L, Hemoglobin 10.7L, Hematocrit 32.8L , Mean Corpuscular Volume 86, Mean Corpuscular Hemoglobin 28.1, Mean Corpuscular Hemoglobin Concent 32.6, Red Cell Distribution Width 14.9H, Platelet Count 321, Mean Platelet Volume 5.6L, Neutrophils (%) (Auto) 66.2, Lymphocytes (%) (Auto) 22.2, Monocytes (%) (Auto) 6.4, Eosinophils (%) (Auto) 4.1H, Basophils (%) (Auto) 1.1, Sodium Level 136, Potassium Level 5.0, Chloride Level 98, Carbon Dioxide Level 24, Anion Gap 14, Blood Urea Nitrogen 76H, Creatinine 18.9H, Estimat Glomerular Filtration Rate 3.4, Glucose Level 104#, Calcium Level 8.7 Height (Feet): 6 Height (Inches): 4.00 Weight (Pounds): 209 General Appearance: no apparent distress EENT: normal ENT inspection Neck: normal alignment Cardiovascular: normal rate, regular rhythm Respiratory/Chest: lungs clear, normal breath sounds Abdomen: non tender, soft Edema: 2+ Arm (L), 2+ Arm (R), 2+ Leg (L), 2+ Leg (R), 2+ Pedal (L), 2+ Pedal ( R), 2+ Generalized Conor Falcon MD Dec 22, 2019 10:38
--- NOTE | 2019-12-22 10:47 | Discharge Instructions ---
Discharge Instructions Discharge Instructions Services at Discharge: day care Diet: renal (80g protein, 2GM) Resume Normal Activity?: Yes Follow Up Orders Follow up with HD at 330 pm today For Congestive Heart Failure Reminder Report to your physician any weight gain of 5 pounds or more in one week. Conor Falcon MD Dec 22, 2019 10:47
--- NOTE | 2019-12-22 10:53 | NUR ---
RADIOLOGY NOTE: RIJ 2L TUNNELED DIALYSIS CATH EXCHANGE BY DR. CONRAD. FA
[2019-12-22] MEDS: Metoprolol Tartrate 100mg tab ORAL SCH (10:55)
[2019-12-22] MEDS: Lisinopril 20mg tab ORAL SCH (10:55)
--- NOTE | 2019-12-22 12:13 | NUR ---
NURSE NOTES: Received order to d/c patient. Discharge instructions and belongings given to patient as well as prescription for home. Patient stated that he will go to his regular pharmacy to fill out his prescription. diabetic wound dressing change done prior to d/c also given extra supplies. IV removed prior d/c. patients mother will provide transportation. I will f/u as needed.
--- NOTE | 2019-12-22 13:52 | Diagnostic Imaging Report ---
Indication: End-stage renal disease on hemodialysis. Malfunctioning tunneled dialysis catheter. Request made for tunneled dialysis catheter placement. Total fluoroscopy time: 113.5 seconds Total fluoroscopy dose: 22.23 mGy Total number fluoroscopic images obtained: 3 Total procedure time: 15 minutes TECHNIQUE/PROCEDURE NARRATIVE: Patient positioned supine on the angiography table and the right chest and external portions of the indwelling dialysis catheter were prepped and draped in usual sterile fashion. Procedure timeout performed, as per protocol. Stiff shaft Glidewire was advanced through one of the lumens of the catheter under real-time fluoroscopy across the right atrium and into the IVC. The cuff of the existing catheter was blunt dissected and freed after administration of local anesthesia with 1% lidocaine. The existing catheter was removed over the wire while the venotomy site and tunnel were manually compressed. A new AngioDynamics bio flow 23 cm tip to cuff tunneled dialysis catheter was then advanced over the wire via the existing access tract. Catheter tip was positioned at the cavoatrial junction. Stiff shaft Glidewire removed. Catheter lumens were flushed and aspirated, ensuring appropriate functioning. Lumens were locked with heparin. Catheter secured to the skin with Prolene suture. Sterile dressing applied. Patient tolerated the procedure well, the department stable condition. IMPRESSION: Successful exchange for new tunneled dialysis catheter via existing right internal jugular vein access as detailed above. Catheter tested multiple times, ensuring appropriate functioning.
--- NOTE | 2019-12-22 16:20 | NUR ---
*-* INSURANCE *-* UPDATED CLINICALS HAVE BEEN FAXED WITH THE EXCEPTION OF DISCHARGE SUMMARY TO IN THE SYSTEM. [facility] P:[phone] F:[phone] & [facility] F: [phone]
--- NOTE | 2019-12-24 18:36 | Discharge Summary ---
Discharge Summary Discharge Summary _ DATE OF ADMISSION: 12/20/2019 DATE OF DISCHARGE: 12/22/2019 ADMITTING MD: Dr. Davie Delarosa SNACK STEWARDESS: Dr. Conor Marques BRIEF HOSPITAL COURSE: The patient is a 39-year-old male, with history of end-stage renal disease on hemodialysis every Wednesday and Wednesday. He had right chest wall permacath placed a year ago. He was doing well but last dialysis, permacath was noted to be clotted and nonfunctional. He then presented to ED for evaluation. He denied chest pain or shortness of breath. Upon evaluation at the ED, blood pressure was 244/126. He was initially planned to be transferred to an outside hospital. However, given his significant hypertension, he was unstable to be transferred. Surgical evaluation was done. Patient was noted to have bilateral lower extremity chronic skin changes. Patient develops ulcers that healed slowly. He was given wound care to the left foot. He was advised to wear a cam boot. He was placed on hydralazine, lisinopril, metoprolol, and clonidine. Blood glucose was monitored. He was given insulin sliding scale and Levemir. On 12/22/2019, he underwent exchange of new tunneled dialysis catheter via existing right internal jugular vein access by IR. He tolerated procedure well. He was eventually cleared for discharge home, continue outpatient hemodialysis. FINAL DIAGNOSES: Malfunctioning dialysis catheter, status post new permacath placement by IR End-stage renal disease on hemodialysis Hypertension Anemia of CKD Diabetes Left foot ulcer, present on admission DISPOSITION: Patient was discharged home. DISCHARGE MEDICATIONS: Refer to Discharge Medication List. DISCHARGE INSTRUCTIONS: Follow-up with PCP in a week. I have been assigned to complete a discharge summary on this account, I was not involved with the patient's management.--RAQUEL Cortez Jacqueline Robles NP Dec 24, 2019 18:36
--- NOTE | 2019-12-25 13:56 | NUR ---
*-* INSURANCE *-* DISCHARGE SUMMARY HAS BEEN FAXED TO. [facility] P:[phone] F:[phone]
== END 2019-12-22 12:00 | disposition home or self-care (01) | DRG 466 ==
LOC: EMR 09:09 → 3E 11:50 → EDBEDREQSVC 13:44 → EDBEDREQ 13:44 → 3E 18:00
PROC: 0J2TXYZ Change Other Device in Trunk Subcutaneous Tissue and Fascia, External Approach (ICD-10-PCS; principal; 2019-12-22)
DX: T82.41XA Breakdown (mechanical) of vascular dialysis catheter, initial encounter (principal); I12.0 Hypertensive chronic kidney disease with stage 5 chronic kidney disease or end stage renal disease; E11.22 Type 2 diabetes mellitus with diabetic chronic kidney disease; N18.6 End stage renal disease; E11.621 Type 2 diabetes mellitus with foot ulcer; L97.529 Non-pressure chronic ulcer of other part of left foot with unspecified severity; E11.42 Type 2 diabetes mellitus with diabetic polyneuropathy; N25.81 Secondary hyperparathyroidism of renal origin; D63.1 Anemia in chronic kidney disease; Y83.8 Other surgical procedures as the cause of abnormal reaction of the patient, or of later complication, without mention of misadventure at the time of the procedure; Z99.2 Dependence on renal dialysis; Z91.11 Patient's noncompliance with dietary regimen; Z91.14 Patient's other noncompliance with medication regimen; Z79.4 Long term (current) use of insulin; Z83.3 Family history of diabetes mellitus; Z82.49 Family history of ischemic heart disease and other diseases of the circulatory system
CPT/HCPCS: 36415; 71045; 76000; 80048; 80053; 82962; 83036; 85025; 85610; 85730; 87070; 87081; 93005; 96374; 96375; 96376; 99285; J1815; J2405; S5561

== ENCOUNTER 2020-04-18 07:43 | Inpatient (IN) | payer MEDICAID ==
[2020-04-18] VITALS (8 sets, daily range): BP systolic 139–214; BP diastolic 65–110
[~2020-04-18] VITALS: Ht 193 cm; Wt 104.8 kg
[~2020-04-18 07:43] MED LIST changes: +CARVEDILOL3.125 MG ORAL; +CATAPRES0.2 MG ORAL; +HUMALOG100 UNIT/4 SUBQ; +LISINOPRIL40 MG ORAL; +METOPROLOL TAR100 M1 ORAL
--- NOTE | 2020-04-18 08:00 | NUR ---
ED Nurse Note: Patient walked into ED from home c/o hypertension during dialysis treatment this AM. Patient's BP currently 124/110, asymptomatic. No c/o chest pain or shortness of breath. Patient states he normally takes clonidine, metoprolol, and lisinopril, but has missed a few doses of his BP medications this week. Meds last taken around 0330 this AM. 20 g IV started in right AC, blood drawn and sent to lab. Patient anuric. Patient AxO x 4, placed into gown, resting in bed on the sliver lap machine tender. Breathing even and unlabored. No s/s of acute distress. Bed in lowest position, call light within reach. Addendum: 04/18/20 at 0917 by PONCHO BP 224/110, not 124/110
[2020-04-18] MEDS ORDERED: LISINOPRIL5 MG ORAL (08:02)
[2020-04-18] MEDS ORDERED: CATAPRES0.1 MG ORAL (08:02)
[2020-04-18] MEDS ORDERED: METOPROLOL TART25 MG ORAL (08:02)
--- NOTE | 2020-04-18 08:21 | Emergency Room Report ---
History of Present Illness General Chief Complaint: Hypertension Present Illness HPI Disclaimer: Please note that this report is being documented using [employer] for [employer] technology. This can lead to erroneous entry secondary to incorrect interpretation by the dictating instrument. HPI: 39-year-old male history of hypertension, diabetes, end-stage renal disease on dialysis Wednesday presented from dialysis due to hypertension. He denies any chest pain, headache, shortness of breath. He did complete dialysis today. He was sent by his guest services agent. Apparently he had been noncompliant with his medications the previous week. He did take his blood pressure medications this morning. PMH: As above PSH: Reviewed Social Hx: Denies smoking drinking or illicit drug use Allergies: Coded Allergies: No Known Allergies (Unverified , 05/23/18) COVID-19 Screening Contact w/high risk pt: No Recent Travel to affected area: No Experienced COVID-19 symptoms?: No COVID-19 Testing performed PHOTOGRAMMETRIC ENGINEER: No Patient History Reviewed Nursing Documentation: PMH: Agreed; PSxH: Agreed Nursing Documentation-PMH Hx Cardiac Problems: Yes Hx Hypertension: Yes - 2 yr ago Hx Diabetes: Yes - 2 yr ago Hx Cancer: No Hx Neurological Problems: No Review of Systems All Other Systems: negative except mentioned in HPI Physical Exam Vital Signs Date Time Temp Pulse Resp B/P (MAP) Pulse Ox O2 Delivery O2 Flow Rate FiO2 04/18/20 07:52 97.7 75 18 209/102 (137) 100 Room Air Sp02 EP Interpretation: reviewed, normal General Appearance: well appearing, no apparent distress Head: normocephalic, atraumatic Eyes: bilateral eye PERRL, bilateral eye EOMI ENT: hearing grossly normal, moist mucus membranes Neck: full range of motion, supple Respiratory: lungs clear, normal breath sounds, no rhonchi, no respiratory distress, no retraction, no wheezing Cardiovascular #1: normal peripheral pulses, regular rate, rhythm, no murmur Gastrointestinal: non tender, soft, non-distended, no guarding Musculoskeletal: other - Bilateral lower extremity edema noted 4-5+ up to the knees, with chronic skin changes, chronic wound noted to left foot Neurologic: alert, oriented x3, no focal defects Skin: normal color, warm/dry Medical Decision Making Diagnostic Impression: Primary Impression: Hypertensive urgency Additional Impressions: Noncompliance with medication regimen Fluid overload ER Course MDM: Patient presents for hypertension. He has been noncompliant with his medications. Differential included hypertensive urgency, CHF, fluid overload, medication noncompliance to name a few. Clinical course-IV, cardiac monitoring and antihypertensives given. Unfortunately patient has been noncompliant with his medications which is most likely causing an increase in his blood pressure. Hydralazine was given in the ER with improvement of blood pressure. I spoke with patient's guest services agent, Dr. Falcon who wished to admit patient for blood pressure control and observation. Patient has a history of poor compliance. Labs - Laboratory Tests Test 04/18/20 08:15 White Blood Count 8.0 K/UL (4.8-10.8) Red Blood Count 3.56 M/UL (4.70-6.10) L Hemoglobin 11.0 G/DL (14.2-18.0) L Hematocrit 33.0 % (42.0-52.0) L Mean Corpuscular Volume 93 FL (80-99) Mean Corpuscular Hemoglobin 30.8 PG (27.0-31.0) Mean Corpuscular Hemoglobin Concent 33.2 G/DL (32.0-36.0) Red Cell Distribution Width 14.2 % (11.6-14.8) Platelet Count 265 K/UL (150-450) Mean Platelet Volume 6.5 FL (6.5-10.1) Neutrophils (%) (Auto) 57.2 % (45.0-75.0) Lymphocytes (%) (Auto) 26.9 % (20.0-45.0) Monocytes (%) (Auto) 9.1 % (1.0-10.0) Eosinophils (%) (Auto) 5.5 % (0.0-3.0) H Basophils (%) (Auto) 1.2 % (0.0-2.0) Sodium Level 134 MMOL/L (136-145) L Potassium Level 3.2 MMOL/L (3.5-5.1) L Chloride Level 94 MMOL/L (98-107) L Carbon Dioxide Level 27 MMOL/L (21-32) Anion Gap 13 mmol/L (5-15) Blood Urea Nitrogen 32 mg/dL (7-18) H Creatinine 8.6 MG/DL (0.55-1.30) H Estimated Glomerular Filtration Rate 8.5 mL/min (>60) Glucose Level 404 MG/DL (74-106) H Calcium Level 8.8 MG/DL (8.5-10.1) Total Bilirubin 0.9 MG/DL (0.2-1.0) Aspartate Amino Transferase (AST) 16 U/L (15-37) Alanine Aminotransferase (ALT) 21 U/L (12-78) Alkaline Phosphatase 127 U/L (46-116) H Total Protein 7.9 G/DL (6.4-8.2) Albumin 3.4 G/DL (3.4-5.0) Globulin 4.5 g/dL Albumin/Globulin Ratio 0.8 (1.0-2.7) L On reevaluation: Patient's blood pressure improved Plan-due to insurance, patient will be transferred to [facility] for admission. Case discussed with Dr. Siu. Patient stable for transfer. EKG Diagnostic Results Rate: normal Rhythm: NSR ST Segments: other Other Impression T waves inverted 1 aVL, early repolarization pattern in V1 V2 biphasic T waves in V4 through V6 Rhythm Strip Diag. Results EP Interpretation: yes Rate: 78 Rhythm: NSR, no PVC's, no ectopy Chest X-Ray Diagnostic Results Chest X-Ray Diagnostic Results : Chest X-Ray Ordered: Yes # of Views/Limited/Complete: 1 View Indication: Other - Hypertension EP Interpretation: Yes Interpretation: no consolidation, no effusion, no pneumothorax Impression: No acute disease Electronically Signed by: Alex Guo MD Last Vital Signs Date Time Temp Pulse Resp B/P (MAP) Pulse Ox O2 Delivery O2 Flow Rate FiO2 04/18/20 07:52 97.7 75 18 209/102 (137) 100 Room Air Status: improved Disposition: SHORT-TERM HOSP Condition: Serious Referrals: NON PHYSICIAN (PCP) Alex Guo M.D. Apr 18, 2020 08:21
[2020-04-18 08:44] LABS: BASOPHILS % (AUTO) 1.2 % (0.0-2.0); EOSINOPHILS % (AUTO) 5.5 % (0.0-3.0); LYMPHOCYTES % (AUTO) 26.9 % (20.0-45.0); MEAN CORPUSCULAR VOLUME 93 FL (80-99); MONOCYTES % (AUTO) 9.1 % (1.0-10.0); NEUTROPHILS % (AUTO) 57.2 % (45.0-75.0); PLATELET COUNT 265 K/UL (150-450); RED BLOOD COUNT 3.56 M/UL (4.70-6.10); RED CELL DISTRIBUTION WIDTH 14.2 % (11.6-14.8)
--- NOTE | 2020-04-18 08:50 | NUR ---
ED Nurse Note: Xray at bedside
[2020-04-18 08:53] LABS: ANION GAP 13 mmol/L (5-15); BLOOD UREA NITROGEN 32 mg/dL (7-18); CALCIUM 8.8 MG/DL (8.5-10.1); CARBON DIOXIDE 27 MMOL/L (21-32); CHLORIDE 94 MMOL/L (98-107); CREATININE 8.6 MG/DL (0.55-1.30); POTASSIUM 3.2 MMOL/L (3.5-5.1); SODIUM 134 MMOL/L (136-145)
[2020-04-18 08:57] LABS: ALANINE AMINOTRANSFERASE 21 U/L (12-78); ALBUMIN 3.4 G/DL (3.4-5.0); ALBUMIN/GLOBULIN RATIO 0.8 (1.0-2.7); ALKALINE PHOSPHATASE 127 U/L (46-116); ASPARTATE AMINO TRANSFERASE 16 U/L (15-37); BILIRUBIN,TOTAL 0.9 MG/DL (0.2-1.0)
--- NOTE | 2020-04-18 09:15 | NUR ---
ED Nurse Note: Patient resting in bed comfortably, no s/s of acute distress. BP currently 139/65. Breathing even and unlabored. Will continue to monitor.
--- NOTE | 2020-04-18 09:29 | Diagnostic Imaging Report ---
Indication: Hypertension Technique: One view of the chest Comparison: 12/20/2019 Findings: Right jugular tunneled dialysis catheter is again demonstrated. The lungs and pleural spaces are clear. The heart size is upper limits of normal. Impression: No acute process
--- NOTE | 2020-04-18 10:00 | NUR ---
ED Nurse Note: Hospital transfer consent signed by patient.
--- NOTE | 2020-04-18 12:05 | NUR ---
ED Nurse Note: Patient resting in bed, breathing even and unlabored, no s/s of acute distress noted. BP 155/79, HR 77, O2 sat 100%. Will continue to monitor.
--- NOTE | 2020-04-18 13:20 | NUR ---
Note salvador in EDM - 04/18/20 at 1618 by PONCHO ED Nurse Note: Report given to Dang TRAORE in Telemetry.
--- NOTE | 2020-04-18 13:40 | NUR ---
Note salvador in EDM - 04/18/20 at 1618 by PONCHO ED Nurse Note: Patient transported to room 211-2 with onRN and net technical architect, patient stable, no s/s of acute distress. Belonging list reviewed with accepting nurse.
--- NOTE | 2020-04-18 15:20 | NUR ---
ED Nurse Note: Report given to Dang TRAORE in Telemetry.
--- NOTE | 2020-04-18 15:40 | NUR ---
ED Nurse Note: Patient transported to room 211-2 with onRN and plumbing technician, patient stable, no s/s of acute distress. Belonging list reviewed with accepting nurse.
--- NOTE | 2020-04-18 16:00 | NUR ---
NURSE NOTES: Received report from Singh TRAORE. Admitted from home because of HTN urgency and here to stabilize BP. BP on admission into floor is 182/95, bilateral lung sounds wheezing on inspiration but displays no signs of respiratory distress saturating at 100%. Pt alert and oriented x4, bilateral upper and lower extremities cool to touch with pitting edema. BLE pitting edema +3, skin is rough, pt says he "does not have much sensation in his feet but able to wiggle toes". Admitted with R foot non-healing ulcer pt states has had since 09/2019. IV R AC 20G is not patent, needs a new IV site. Has R upper chest portacath used for dialysis. HOB raised, bed locked and in lowest position, bed alarm placed, call light within reach. Will continue plan of care.
--- NOTE | 2020-04-18 16:18 | Nephrology Progress Note ---
Subjective Date patient seen: Apr 18, 2020 Time patient seen: 11:00 Allergies: Coded Allergies: No Known Allergies (Unverified , 05/23/18) Subjective Patient seen in ER at 11 am. Transfer to [facility] cancelled. Full consult to follow Objective Last 24 Hour Vital Signs Date Time Temp Pulse Resp B/P (MAP) Pulse Ox O2 Delivery O2 Flow Rate FiO2 04/18/20 14:20 97.7 76 18 158/82 100 Room Air 04/18/20 12:24 97.8 77 17 155/79 100 Room Air 04/18/20 11:05 97.9 75 18 143/69 100 Room Air 04/18/20 09:14 73 16 139/65 100 Room Air 04/18/20 08:50 220/110 04/18/20 08:00 75 18 Room Air 04/18/20 08:00 97.7 75 18 214/110 100 Room Air 04/18/20 07:52 97.7 75 18 209/102 (137) 100 Room Air Laboratory Tests 04/18/20 08:15: White Blood Count 8.0, Red Blood Count 3.56L, Hemoglobin 11.0L, Hematocrit 33.0L , Mean Corpuscular Volume 93, Mean Corpuscular Hemoglobin 30.8, Mean Corpuscular Hemoglobin Concent 33.2, Red Cell Distribution Width 14.2, Platelet Count 265, Mean Platelet Volume 6.5, Neutrophils (%) (Auto) 57.2, Lymphocytes (% ) (Auto) 26.9, Monocytes (%) (Auto) 9.1, Eosinophils (%) (Auto) 5.5H, Basophils (%) (Auto) 1.2, Sodium Level 134L, Potassium Level 3.2L, Chloride Level 94L, Carbon Dioxide Level 27, Anion Gap 13, Blood Urea Nitrogen 32H, Creatinine 8.6H , Estimat Glomerular Filtration Rate 8.5, Glucose Level 404H, Calcium Level 8.8 , Total Bilirubin 0.9, Aspartate Amino Transf (AST/SGOT) 16, Alanine Aminotransferase (ALT/SGPT) 21, Alkaline Phosphatase 127H, Total Protein 7.9, Albumin 3.4, Globulin 4.5, Albumin/Globulin Ratio 0.8L Height (Feet): 6 Height (Inches): 4.00 Weight (Pounds): 215 Conor Falcon MD Apr 18, 2020 16:18
--- NOTE | 2020-04-18 17:30 | History and Physical Report ---
DATE OF ADMISSION: 04/18/2020 HISTORY OF PRESENT ILLNESS: This is a 39-year-old male with history of hypertension, diabetes mellitus, and ESRD, on dialysis. He came to the hospital after being sent in from dialysis center because of severe hypertension. The patient was unable to complete dialysis. He was sent to this hospital for evaluation. The patient reports that he has been noncompliant with his home medications. PAST MEDICAL HISTORY: Hypertension, diabetes mellitus, ESRD. HOME MEDICATIONS: Reviewed and reconciled in chart. REVIEW OF SYSTEMS: Denies any headache, hematemesis, melena, or hematochezia. PHYSICAL EXAMINATION: GENERAL: A 39-year-old middle-aged male. VITAL SIGNS: Blood pressure at this time 160/80, heart rate is 75, respirations 18, O2 sat 100% on room air. HEENT: Unremarkable. LUNGS: Clear breath sounds bilaterally. ABDOMEN: Soft. EXTREMITIES: There is no edema. NEUROLOGIC: Nonfocal. LABORATORY DATA: Lab testing shows hemoglobin 11. Creatinine of 8.6, potassium 3.2. X-ray chest obtained today, which shows clear lung crespo bilaterally. There is a right IJ catheter noted. IMPRESSION: 1. ESRD, on dialysis. 2. Hypertension . 3. Hypertensive urgency. DISCUSSION: Admit to the hospital. I have contacted Dr. Falcon for additional medical care. We will continue home medications. We will follow carefully as air brake adjuster. Anthony Delarosa M.D. DR: SWETHA JOB#: [id number] CC:
--- NOTE | 2020-04-18 18:45 | NUR ---
NURSE NOTES: Glucose level 486, gave 14 units Novalog per protocol; BP 182/95, gave 40mg of Lisinopril; notified Falcon MD. Per , re-check v/s at 20:00.
[2020-04-18] MEDS: Lisinopril 20mg tab ORAL SCH (18:50)
[2020-04-18] MEDS: NovoLOG Insulin Flexpen SUBQ SCH ×2 (18:50→20:36)
--- NOTE | 2020-04-18 19:30 | NUR ---
HAND-OFF: Report given to Leona NARVAEZ. Pt in bed resting, states 0/10 pain, HOB raised, no signs of acute respiratory distress, bed locked and in lowest position, call light within reach. Endorsed plan of care.
--- NOTE | 2020-04-18 19:49 | NUR ---
NURSE NOTES: Left a voicemail to Dr Delarosa. Made MD aware that pt bedside glucose at 1730 was 486, insulin was administered as ordered. Also informed MD about the low potassium. Awaiting for MD's callback. Will endorsed to night nurse. Addendum: 04/18/20 at 2006 by Jane Obrien RN Per MD, monitor glucose tonight after administration of levemir and novolog.
--- NOTE | 2020-04-18 20:00 | NUR ---
NURSE NOTES: RECEIVED PATIENT LYING IN BED, AWAKE, ALERT/ORIENTED X4, VERBALLY RESPONSIVE, DENIES PAIN. NO SIGNS AND SYMPTOMS OF ACUTE CARDIO RESPIRATORY DISTRESS/SHORTNESS OF BREATH, DENIES CHEST PAIN, BILATERAL LOWER EXTREMITIES EDEMATOUS 4+, ENCOURAGED ELEVATION. ABDOMEN SOFT/NON DISTENDED/NON TENDER, BOWEL SOUNDS AUDIBLE IN ALL QUADRANTS, NO N/V/D. DRESSING DRY AND INTACT TO LEFT FOOT, LOWER EXTREMITIES VERY DRY/ASHY. SIDE RAILS UP X3/BED IN LOWEST POSITION FOR SAFETY, ENCOURAGED PATIENT TO UTILIZE CALL LIGHT FOR ASSISTANCE, VERBALIZED UNDERSTANDING. CONTINUE WITH CURRENT PLAN OF CARE. NAD.
--- NOTE | 2020-04-18 20:07 | NUR ---
NURSE NOTES: Informed Dr Falcon that sodium is 134 and potassium is 3.2. Per , order KCL 20MEQ PO x1. Will endorse to PM nurse.
[2020-04-18] MEDS: Carvedilol 25mg Tab ORAL SCH (20:23)
[2020-04-18] MEDS: Heparin 5000 units/ml inj SUBQ SCH (20:25)
[2020-04-18] MEDS: Levemir Flexpen SUBQ SCH (20:35)
[2020-04-18] MEDS: HydrALAZINE 50mg tab ORAL SCH (22:45)
[2020-04-19] VITALS: BP 151/71
[2020-04-19 04:00] VITALS: BP 148/81
--- NOTE | 2020-04-19 05:48 | Pulmonology Progress Note ---
Subjective Interval Events: None new Constitutional: Reports: no symptoms HEENT: Repors: no symptoms Respiratory: Reports: no symptoms Cardiovascular: Reports: no symptoms Gastrointestinal/Abdominal: Reports: no symptoms Allergies: Coded Allergies: No Known Allergies (Unverified , 05/23/18) Objective Last 24 Hour Vital Signs Date Time Temp Pulse Resp B/P (MAP) Pulse Ox O2 Delivery O2 Flow Rate FiO2 04/19/20 04:00 73 04/19/20 00:00 98.0 65 18 151/71 (97) 97 04/19/20 00:00 79 04/18/20 22:45 176/92 04/18/20 21:00 Room Air 04/18/20 20:23 82 178/94 04/18/20 20:00 96.4 77 18 178/94 (122) 98 04/18/20 20:00 79 04/18/20 18:50 182/95 04/18/20 17:43 Room Air 04/18/20 16:12 79 04/18/20 16:00 97.3 81 16 182/95 (124) 100 04/18/20 15:40 97.7 75 17 161/85 100 Room Air 04/18/20 15:30 97.7 75 17 161/85 100 Room Air 04/18/20 14:20 97.7 76 18 158/82 100 Room Air 04/18/20 12:24 97.8 77 17 155/79 100 Room Air 04/18/20 11:05 97.9 75 18 143/69 100 Room Air 04/18/20 09:14 73 16 139/65 100 Room Air 04/18/20 08:50 220/110 04/18/20 08:00 75 18 Room Air 04/18/20 08:00 97.7 75 18 214/110 100 Room Air 04/18/20 07:52 97.7 75 18 209/102 (137) 100 Room Air Intake and Output 04/18/20 04/19/20 19:00 07:00 Intake Total 0 ml Balance 0 ml Intake Oral 0 ml # Bowel Movements 1 General Appearance: no acute distress HEENT: normocephalic Respiratory: chest wall non-tender, lungs clear Cardiovascular: normal peripheral pulses Abdomen: normal bowel sounds Microbiology Date/Time Source Procedure Growth Status 04/18/20 15:40 Rectum Received Laboratory Tests 04/18/20 08:15: White Blood Count 8.0, Red Blood Count 3.56L, Hemoglobin 11.0L, Hematocrit 33.0L , Mean Corpuscular Volume 93, Mean Corpuscular Hemoglobin 30.8, Mean Corpuscular Hemoglobin Concent 33.2, Red Cell Distribution Width 14.2, Platelet Count 265, Mean Platelet Volume 6.5, Neutrophils (%) (Auto) 57.2, Lymphocytes (% ) (Auto) 26.9, Monocytes (%) (Auto) 9.1, Eosinophils (%) (Auto) 5.5H, Basophils (%) (Auto) 1.2, Sodium Level 134L, Potassium Level 3.2L, Chloride Level 94L, Carbon Dioxide Level 27, Anion Gap 13, Blood Urea Nitrogen 32H, Creatinine 8.6H , Estimat Glomerular Filtration Rate 8.5, Glucose Level 404H, Calcium Level 8.8 , Total Bilirubin 0.9, Aspartate Amino Transf (AST/SGOT) 16, Alanine Aminotransferase (ALT/SGPT) 21, Alkaline Phosphatase 127H, Total Protein 7.9, Albumin 3.4, Globulin 4.5, Albumin/Globulin Ratio 0.8L 04/18/20 18:37: POC Whole Blood Glucose 486H 04/18/20 20:29: POC Whole Blood Glucose 536*H 04/18/20 20:32: POC Whole Blood Glucose [Pending] 04/19/20 05:08: POC Whole Blood Glucose 217H Current Medications Medications (Trade) Dose Ordered Sig/Jessika Route PRN Reason Start Time Stop Time Status Last Admin Dose Admin Acetaminophen (Tylenol) 650 mg Q4H PRN ORAL Mild Pain (Pain Scale 1-3) 04/18/20 16:15 05/18/20 16:14 Carvedilol (Coreg) 25 mg EVERY 12 HOURS ORAL 04/18/20 21:00 05/18/20 20:59 04/18/20 20:23 Dextrose (Dextrose 50%) 25 ml Q30M PRN IV Hypoglycemia 04/18/20 16:15 07/17/20 16:14 Dextrose (Dextrose 50%) 50 ml Q30M PRN IV Hypoglycemia 04/18/20 16:15 07/17/20 16:14 Diphenhydramine HCl (Benadryl) 25 mg Q6H PRN ORAL Itching/Pruritis 04/18/20 16:15 8/22/20 16:14 Famotidine (Pepcid) 20 mg QOD ORAL 04/19/20 09:00 07/18/20 08:59 Heparin Sodium (Porcine) (Heparin 5000 units/ml) 5,000 units EVERY 12 HOURS SUBQ 04/18/20 21:00 06/02/20 20:59 04/18/20 20:25 Hydralazine HCl (Apresoline) 10 mg Q4H PRN IV SBP > 160mmHg 04/18/20 16:15 07/17/20 16:14 Hydralazine HCl (Apresoline) 100 mg Q8HR ORAL 04/18/20 22:00 07/17/20 21:59 04/18/20 22:45 Insulin Aspart (NovoLOG) BEFORE MEALS AND HS SUBQ 04/18/20 17:30 07/17/20 17:29 04/18/20 20:36 Insulin Detemir (Levemir) 20 units Q12HR SUBQ 04/18/20 21:00 07/17/20 20:59 04/18/20 20:35 Lisinopril (PriniviL) 40 mg BID ORAL 04/18/20 18:00 05/18/20 17:59 04/18/20 18:50 Assessment/Plan Assessment/Plan IMPRESSION: 1. ESRD, on dialysis. 2. DM 3. Hypertensive urgency. DISCUSSION: Admit to the hospital. I have contacted Dr. Falcon for additional medical care. I will continue home medications. 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 Kelechi Murray Omar Syed MD Apr 19, 2020 05:48
[2020-04-19] MEDS: HydrALAZINE 50mg tab ORAL SCH ×4 (06:19→21:34)
[2020-04-19] MEDS: NovoLOG Insulin Flexpen SUBQ SCH ×4 (06:20→21:00)
--- NOTE | 2020-04-19 06:26 | NUR ---
NURSE NOTES: BLOOD GLUCOSE LEVEL MONITORED VIA GLUCOMETER WITH RESULT 216MG/DL, ASSESSED FOR SIGNS AND SYMPTOMS OF HYPERGLYCEMIA, NONE NOTED.
[2020-04-19 07:14] LABS: ANION GAP 10 mmol/L (5-15); BLOOD UREA NITROGEN 39 mg/dL (7-18); CALCIUM 8.9 MG/DL (8.5-10.1); CARBON DIOXIDE 27 MMOL/L (21-32); CHLORIDE 98 MMOL/L (98-107); CREATININE 10.3 MG/DL (0.55-1.30); POTASSIUM 3.5 MMOL/L (3.5-5.1); SODIUM 135 MMOL/L (136-145)
--- NOTE | 2020-04-19 07:30 | NUR ---
HAND-OFF: Report given to EUGENIE MEZA.
--- NOTE | 2020-04-19 07:49 | NUR ---
NURSE NOTES: Received report from Leona Loaiza, patient sitting up in bed, awake and alert, watching television, just finished his breakfast, on room air, respirations at 16 breaths per minute, no c/o pain, bed in lowest position, call light within reach.
[2020-04-19 08:00] VITALS: BP 148/81
[2020-04-19] MEDS: Carvedilol 25mg Tab ORAL SCH ×2 (08:30→21:34)
[2020-04-19] MEDS: Lisinopril 20mg tab ORAL SCH ×2 (08:32→17:22)
[2020-04-19] MEDS: Heparin 5000 units/ml inj SUBQ SCH ×2 (08:32→21:33)
[2020-04-19] MEDS: Levemir Flexpen SUBQ SCH ×2 (08:40→21:00)
[2020-04-19 12:00] VITALS: BP 160/85
--- NOTE | 2020-04-19 12:09 | Nephrology Progress Note ---
Assessment/Plan Assessment/Plan: A/p 1) ESRD- OK for Dc today post HD 2) HTN- Coreg/Hydralazine and Lisinopril and BP at goal - not compliant at home with medications and interdialytic fluid weight gains 3) DM- ISS and levemir Subjective Date patient seen: Apr 19, 2020 Time patient seen: 12:06 ROS Limited/Unobtainable: Yes Allergies: Coded Allergies: No Known Allergies (Unverified , 05/23/18) Subjective Patient BP at goal. Much improved Objective Last 24 Hour Vital Signs Date Time Temp Pulse Resp B/P (MAP) Pulse Ox O2 Delivery O2 Flow Rate FiO2 04/19/20 08:32 148/81 04/19/20 08:30 100 148/81 04/19/20 08:00 98.4 100 18 148/81 (103) 100 04/19/20 08:00 77 04/19/20 06:19 154/79 04/19/20 04:00 97.5 77 18 148/81 (103) 97 04/19/20 04:00 73 04/19/20 00:00 98.0 65 18 151/71 (97) 97 04/19/20 00:00 79 04/18/20 22:45 176/92 04/18/20 21:00 Room Air 04/18/20 20:23 82 178/94 04/18/20 20:00 96.4 77 18 178/94 (122) 98 04/18/20 20:00 79 04/18/20 18:50 182/95 04/18/20 17:43 Room Air 04/18/20 16:12 79 04/18/20 16:00 97.3 81 16 182/95 (124) 100 04/18/20 15:40 97.7 75 17 161/85 100 Room Air 04/18/20 15:30 97.7 75 17 161/85 100 Room Air 04/18/20 14:20 97.7 76 18 158/82 100 Room Air 04/18/20 12:24 97.8 77 17 155/79 100 Room Air Intake and Output 04/18/20 04/19/20 19:00 07:00 Intake Total 0 ml 360 ml Balance 0 ml 360 ml Intake Oral 0 ml 360 ml # Bowel Movements 1 Laboratory Tests 04/18/20 18:37: POC Whole Blood Glucose 486H 04/18/20 20:29: POC Whole Blood Glucose 536*H 04/18/20 20:32: POC Whole Blood Glucose [Pending] 04/19/20 05:08: POC Whole Blood Glucose 217H 04/19/20 06:18: Sodium Level 135L, Potassium Level 3.5, Chloride Level 98, Carbon Dioxide Level 27, Anion Gap 10, Blood Urea Nitrogen 39H, Creatinine 10.3H, Estimat Glomerular Filtration Rate 6.9, Glucose Level 208#H, Calcium Level 8.9 Height (Feet): 6 Height (Inches): 4.00 Weight (Pounds): 231 General Appearance: no apparent distress, alert EENT: normal ENT inspection Neck: normal alignment, supple Cardiovascular: normal rate, regular rhythm Respiratory/Chest: lungs clear, normal breath sounds Abdomen: non tender, soft Edema: no edema noted Arm (L), no edema noted Arm (R), no edema noted Leg (L), no edema noted Leg (R), no edema noted Pedal (L), no edema noted Pedal (R), no edema noted Generalized Conor Falcon MD Apr 19, 2020 12:09
--- NOTE | 2020-04-19 15:09 | NUR ---
CASE MANAGEMENT:REVIEW 39 YR OLD MALE WALKED INTO ER CC: ELEVATED BLOOD PRESSURE NOTED AT DIALYSIS PMH: ESRD ON HD SI: HYPERTENSIVE URGENCY. FLUID OVERLOAD 97.7 75 18 209/102 100% ON RA BUN+32 CR+8.6 K-3.2 GLUCOSE+536 IS: IV HYDRALAZINE CHEST XRAY : TO TELEMETRY IS: PEPCID PO QOD HYDRALAZINE PO Q8HR HEPARIN SQ Q12 COREG PO Q12 LEVEMIR SQ Q12 LISINOPRIL PO BID SS INSULIN AC+HS
--- NOTE | 2020-04-19 15:16 | NUR ---
*-* INSURANCE *-* ALL AVAILABLE CLINICALS HAVE BEEN FAXED TO: [facility] P:[phone] F:[phone]
[2020-04-19 16:00] VITALS: BP 149/82
--- NOTE | 2020-04-19 19:52 | NUR ---
HAND-OFF: Report given to Muriel Kamara RN. Ratient sitting up in bed, awake and alert, watching television, on room air, respirations at 16 breaths per minute, no c/o pain, bed in lowest position, call light within reach, wheels locked, just finished hemodialysis 3.5 liters out, no c/o pain, no SOB, notified Bry Velazquez RN that patient's blood pressure was 199/108 during dialysis, blood pressure was treated with medication and under control, in no apparent distress.
--- NOTE | 2020-04-19 19:55 | NUR ---
NURSE NOTES: Report received from EUGENIE Argueta. Patient is in bed asleep. No SOB or respiratory distress. monitor car operator intact and functioning. Call light and bedside table is within reach. Bed is at lowest position locked and side rails up for support. EUGENIE Argueta stated that patient was supposed to be discharged but blood pressure was elevated. Will reassess blood pressure and follow up with plan of care.
[2020-04-19 20:00] VITALS: BP 199/99
--- NOTE | 2020-04-19 20:25 | NUR ---
NURSE NOTES: Checked patient's blood pressure at 2035, BP reading 199/93.
--- NOTE | 2020-04-19 20:30 | NUR ---
NURSE NOTES: Patient's mother, Juan Carlos, called stating that she prefers to garbage pick up worker the patient early in the morning versus tonight because it will be too late for her to pick him up. She also mentioned that he has dialysis scheduled for the morning. Will notify MD of conversation.
--- NOTE | 2020-04-19 21:15 | NUR ---
NURSE NOTES: Spoke with Dr. Garcia and made him aware that mother of patient stating that she can not pick him up tonight and would like to pick him up in morning. Also made him aware that patient has a routine dialysis in morning as well. He stated that the patient should have been discharged earlier in the day and that patient's blood pressure was not high when he saw the patient. He stated for him to continue his routine dialysis in AM and that he will come tomorrow to see the patient. Charge nurse, Sara made aware. Addendum: 04/20/20 at 0415 by Muriel Kamara RN Additional: Dr. Garcia also made aware of last BP reading of 199/93 and scheduled medications to be administered.
--- NOTE | 2020-04-19 21:31 | Nephrology Progress Note ---
Assessment/Plan Assessment/Plan: A/p 1) ESRD- OK for Dc today post HD 2) HTN- Coreg/Hydralazine and Lisinopril and BP at goal - not compliant at home with medications and interdialytic fluid weight gains 3) DM- ISS and levemir Subjective Allergies: Coded Allergies: No Known Allergies (Unverified , 05/23/18) Subjective Patient dialyzed. DC orders placed and patient was not discharged and not given BP medications. He is now Hypertensive Instructed nurse to give patient his scheduled BP medications and now patient to stay overnight and receive his BP medications and dialysis for tomorrow morning Objective Last 24 Hour Vital Signs Date Time Temp Pulse Resp B/P (MAP) Pulse Ox O2 Delivery O2 Flow Rate FiO2 04/19/20 18:33 168/79 04/19/20 17:22 199/108 04/19/20 16:00 87 04/19/20 16:00 98.6 104 18 149/82 (104) 97 04/19/20 15:38 172/95 04/19/20 14:00 160/85 04/19/20 12:00 97.7 105 18 160/85 (110) 100 04/19/20 12:00 78 04/19/20 09:00 Room Air 04/19/20 08:32 148/81 04/19/20 08:30 100 148/81 04/19/20 08:00 98.4 100 18 148/81 (103) 100 04/19/20 08:00 77 04/19/20 06:19 154/79 04/19/20 04:00 97.5 77 18 148/81 (103) 97 04/19/20 04:00 73 04/19/20 00:00 98.0 65 18 151/71 (97) 97 04/19/20 00:00 79 04/18/20 22:45 176/92 Intake and Output 04/18/20 04/19/20 19:00 07:00 Intake Total 0 ml 360 ml Balance 0 ml 360 ml Intake Oral 0 ml 360 ml # Bowel Movements 1 Laboratory Tests 04/19/20 05:08: POC Whole Blood Glucose 217H 04/19/20 06:18: Sodium Level 135L, Potassium Level 3.5, Chloride Level 98, Carbon Dioxide Level 27, Anion Gap 10, Blood Urea Nitrogen 39H, Creatinine 10.3H, Estimat Glomerular Filtration Rate 6.9, Glucose Level 208#H, Calcium Level 8.9, Hepatitis B Surface Antigen Negative 04/19/20 16:43: POC Whole Blood Glucose 85 Height (Feet): 6 Height (Inches): 4.00 Weight (Pounds): 231 Conor Falcon MD Apr 19, 2020 21:31
--- NOTE | 2020-04-19 22:00 | NUR ---
NURSE NOTES: Called [facility] dialysis company and left message with Rachel at call center. Made her aware that patient has routine dialysis in morning and to have someone call nurse to confirm appointment. Awaiting call back.
[2020-04-20] VITALS: BP 141/73
--- NOTE | 2020-04-20 03:05 | NUR ---
NURSE NOTES: Called [facility] Dialysis company 2nd time for follow up on dialysis appointment for the patient. Made them aware that patient usually receives dialysis at 3am on Saturdays. Spoke with Rachel, she stated she will relay the message for a second time. Awaiting call back.
[2020-04-20 04:00] VITALS: BP 129/58
[2020-04-20] MEDS: NovoLOG Insulin Flexpen SUBQ SCH ×3 (06:37→16:30)
--- NOTE | 2020-04-20 07:25 | NUR ---
NURSE NOTES: Received patient in bed. Awake, A/O x4. On room air, respirations unlabored. IV in the right AC, site intact. Dialysis site in the Right chest intact. Denies pain at this time. Bed low and locked, side rails up x2. Addendum: 04/20/20 at 0817 by Erickson Feliciano RN Continued cardiac monitoring, no c/o chest pain or respiratory distress.
--- NOTE | 2020-04-20 07:59 | NUR ---
HAND-OFF: Report given to Shanice RN. Made them aware that patient has dialysis today and [facility] made aware. Also made them aware that Dr. Garcia will be coming to see patient today. Patient's last BP reading 124/59. Stable, no SOB.
[2020-04-20 08:00] VITALS: BP 166/87
--- NOTE | 2020-04-20 08:28 | NUR ---
NURSE NOTES: Spoke with [facility] nephrology for HD today. Waiting on a call back to confirm. Ruslan (nurse) to give a call back.
[2020-04-20] MEDS: Lisinopril 20mg tab ORAL SCH ×2 (09:00→17:33)
[2020-04-20] MEDS: Carvedilol 25mg Tab ORAL SCH (09:00)
[2020-04-20] MEDS: Heparin 5000 units/ml inj SUBQ SCH (09:00)
[2020-04-20] MEDS: Levemir Flexpen SUBQ SCH (09:03)
--- NOTE | 2020-04-20 09:04 | NUR ---
NURSE NOTES: Subcut heparin held d/t HD today.
--- NOTE | 2020-04-20 09:30 | NUR ---
NURSE NOTES: Dialysis nurse will come in between 12-1230 today.
--- NOTE | 2020-04-20 11:50 | NUR ---
NURSE NOTES: per Young/electrical technology instructor dialysis will happen now after 1500.
[2020-04-20 12:00] VITALS: BP 147/71
[2020-04-20] MEDS: HydrALAZINE 50mg tab ORAL SCH (14:00)
--- NOTE | 2020-04-20 14:00 | Pulmonology Progress Note ---
Subjective ROS Limited/Unobtainable: No Interval Events: None new Constitutional: Reports: no symptoms HEENT: Repors: no symptoms Respiratory: Reports: no symptoms Cardiovascular: Reports: no symptoms Gastrointestinal/Abdominal: Reports: no symptoms Allergies: Coded Allergies: No Known Allergies (Unverified , 05/23/18) Objective Last 24 Hour Vital Signs Date Time Temp Pulse Resp B/P (MAP) Pulse Ox O2 Delivery O2 Flow Rate FiO2 04/20/20 12:00 84 04/20/20 12:00 99.0 82 20 147/71 (96) 97 04/20/20 09:00 Room Air 04/20/20 09:00 166/87 04/20/20 09:00 90 166/87 04/20/20 08:00 98.8 90 18 166/87 (113) 98 04/20/20 08:00 89 04/20/20 04:00 84 04/20/20 04:00 98.1 89 17 129/58 (81) 98 04/20/20 00:00 84 04/20/20 00:00 98.5 82 16 141/73 (95) 98 04/19/20 21:34 193/99 04/19/20 21:34 85 193/99 04/19/20 21:00 Room Air 04/19/20 20:00 98.4 85 17 199/99 (132) 98 04/19/20 20:00 87 04/19/20 18:33 168/79 04/19/20 17:22 199/108 04/19/20 16:00 87 04/19/20 16:00 98.6 104 18 149/82 (104) 97 04/19/20 15:38 172/95 04/19/20 14:00 160/85 Intake and Output 04/19/20 04/20/20 19:00 07:00 Intake Total 520 ml 150 ml Output Total 3500 ml Balance -2980 ml 150 ml Intake Oral 520 ml 150 ml Output Hemodialysis UF 3500 ml # Bowel Movements 2 General Appearance: no acute distress HEENT: normocephalic Respiratory: chest wall non-tender, lungs clear Cardiovascular: normal peripheral pulses Abdomen: normal bowel sounds Microbiology Date/Time Source Procedure Growth Status 04/18/20 15:40 Nasal Nares MRSA Culture - Final NO METHICILLIN RESISTANT STAPH AUREUS... Complete 04/18/20 15:40 Rectum - Final NO CARBAPENEM-RESISTANT ENTEROBACTERI... Complete 04/18/20 15:40 Rectum VRE Culture - Final NO VANCOMYCIN RESISTANT ENTEROCOCCUS ... Complete Laboratory Tests 04/19/20 16:43: POC Whole Blood Glucose 85 04/19/20 20:55: POC Whole Blood Glucose 179H 04/20/20 05:38: POC Whole Blood Glucose 192H 04/20/20 09:00: POC Whole Blood Glucose [Pending] 04/20/20 11:48: POC Whole Blood Glucose 219H Current Medications Medications (Trade) Dose Ordered Sig/Jessika Route PRN Reason Start Time Stop Time Status Last Admin Dose Admin Acetaminophen (Tylenol) 650 mg Q4H PRN ORAL Mild Pain (Pain Scale 1-3) 04/18/20 16:15 05/18/20 16:14 Carvedilol (Coreg) 37.5 mg EVERY 12 HOURS ORAL 04/20/20 21:00 05/18/20 20:59 Dextrose (Dextrose 50%) 25 ml Q30M PRN IV Hypoglycemia 04/18/20 16:15 07/17/20 16:14 Dextrose (Dextrose 50%) 50 ml Q30M PRN IV Hypoglycemia 04/18/20 16:15 07/17/20 16:14 Diphenhydramine HCl (Benadryl) 25 mg Q6H PRN ORAL Itching/Pruritis 04/18/20 16:15 05/18/20 16:14 Famotidine (Pepcid) 20 mg QOD ORAL 04/19/20 09:00 07/18/20 08:59 04/19/20 08:39 Heparin Sodium (Porcine) (Heparin 5000 units/ml) 5,000 units EVERY 12 HOURS SUBQ 04/18/20 21:00 06/02/20 20:59 04/19/20 21:33 Hydralazine HCl (Apresoline) 10 mg Q4H PRN IV SBP > 160mmHg 04/18/20 16:15 07/17/20 16:14 04/19/20 18:33 Hydralazine HCl (Apresoline) 100 mg Q8HR ORAL 04/18/20 22:00 07/17/20 21:59 04/19/20 21:34 Insulin Aspart (NovoLOG) BEFORE MEALS AND HS SUBQ 04/18/20 17:30 07/17/20 17:29 04/20/20 11:51 Insulin Detemir (Levemir) 20 units Q12HR SUBQ 04/18/20 21:00 07/17/20 20:59 04/20/20 09:03 Lisinopril (PriniviL) 40 mg BID ORAL 04/18/20 18:00 05/18/20 17:59 04/20/20 09:00 Assessment/Plan Assessment/Plan Pulmonary Progress Note: HPI: Patient is a 39-year-old man with history of hypertension, diabetes mellitus, ESRD, on hemodialysis. Admitted with severe hypertension. The patient reported that he has been noncompliant with his home medications. PAST MEDICAL HISTORY: Hypertension, diabetes mellitus, ESRD. PHYSICAL EXAMINATION: GENERAL: A 39-year-old middle-aged male on room air, no distress VITAL SIGNS NOTED HEENT: Unremarkable. LUNGS: Clear breath sounds bilaterally. ABDOMEN: Soft. EXTREMITIES: There is no edema. NEUROLOGIC: Nonfocal. LABORATORY DATA NOTED Chest XR clear lung crespo bilaterally. There is a right IJ catheter noted. IMPRESSION: 1. ESRD, on dialysis. 2. Hypertensive urgency 3. Hypertensive urgency. 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
--- NOTE | 2020-04-20 14:13 | NUR ---
NURSE NOTES: per [facility] dialysis/RN do not give Hydralazine, she will be doing dialysis soon.
[2020-04-20 16:00] VITALS: BP 137/66
--- NOTE | 2020-04-20 16:26 | NUR ---
NURSE NOTES: IV hydralazine wasted. Med pulled for high BP during HD. Unable to give d/t no IV site. BP stabilized on HD.
--- NOTE | 2020-04-20 16:54 | NUR ---
NURSE NOTES: Contacted Anna (mother) [phone]. She will arrive at 1900 to p/u patient after HD is complete.
[2020-04-20 17:33] VITALS: BP 178/89
[2020-04-20] MEDS ORDERED: COREG25 MG ORAL (17:44)
[2020-04-20] MEDS ORDERED: HYDRALAZINE HC100 MG ORAL (17:45)
--- NOTE | 2020-04-20 17:50 | NUR ---
NURSE NOTES: MRSA swab done and sent down to lab.
[2020-04-20] MEDS ORDERED: HydrALAZINE 50mg tab ORAL PRN (19:00)
--- NOTE | 2020-04-20 19:25 | NUR ---
NURSE NOTES: pt BP after dialysis laying down is 181/90 notified doctor Falcon. He order to cancel DC order. Pt family was notified of DC cancelation.
--- NOTE | 2020-04-20 19:27 | NUR ---
NURSE NOTES: Notified doctor Falcon about pt blood pressure standing up 141/66. Doctor stated that BP is normal and pt must be DC today.
--- NOTE | 2020-04-20 19:49 | NUR ---
HAND-OFF: Report given to Karen/EUGENIE pt in stable condition and OK to go home BP is normal. pt called family member and his mom will pick him up today. Endorsed to night nurse that pt has a physical prescription for BP meds that he needs to fill out [facility].
--- NOTE | 2020-04-20 20:05 | NUR ---
NURSE NOTES: Patient is being discharged from medical care. Awake, alert and oriented x4. After care instructions, and home medication instructions were given. Patient verbalized understanding of After care instructions; at this time patient does not request medications, equipment or placement. All medical devices such as IV and ID band were removed. Assisted patient down to the lobby via wheelchair with all personal belongings.
[2020-04-20] MEDS ORDERED: Carvedilol 25mg Tab ORAL SCH (21:00)
--- NOTE | 2020-04-22 10:34 | NUR ---
*-* INSURANCE *-* UPDATED CLINICALS HAVE BEEN FAXED(NO D/C SUMMARY IN THE SYSTEM) TO: DARRELL CENTENO P:[phone] F:[phone]
--- NOTE | 2020-04-22 11:52 | Discharge Summary ---
Discharge Summary Discharge Summary _ DATE OF ADMISSION: 04/18/2020 DATE OF DISCHARGE: 04/20/2020 DISCHARGED BY: Dr. Delarosa REASON FOR ADMISSION: 39 years old male with past medical history of hypertension, diabetes mellitus, end-stage renal disease, on hemodialysis, presented from dialysis due to hypertension. He completed his hemodialysis prior to presentation to ED. No chest pain or shortness of breath. No headaches. Patient was noncompliant with his medication the previous week. Upon evaluation blood pressure 219/102. Laboratory work-up revealed anemia with hemoglobin 11 ,hematocrit 33. Potassium 3.2 , sodium 134. BUN 32, creatinine 8.6, consistent with known history of end-stage renal disease. Glucose 404 . EKG revealed sinus rhythm . Chest x-ray revealed no acute cardiopulmonary pathology. Patient subsequently admitted for further management CONSULTANTS: speech therapy assistant Dr. Dr.De Acosta [facility] HOSPITAL COURSE: Patient admitted to telemetry floor. Antihypertensive regimen was uptitrated to bring blood pressure under control. Hypertensive regimen consisted of Coreg ,hydralazine and lisinopril. Patient was encouraged compliance with medications at home. Blood sugar was managed with Januvia, long-acting Levemir and sliding scale of insulin as needed. Hemodialysis provided as per speech therapy assistant recommendation with close monitoring of volumes and renal parameters. Blood pressure and blood sugar improved. Patient stabilized and was ready for discharge home . FINAL DIAGNOSES: Hypertensive urgency-resolved End-stage renal disease, on hemodialysis Noncompliance with medication Diabetes mellitus with initial hyperglycemia DISCHARGE MEDICATIONS: See Medication Reconciliation list. DISCHARGE INSTRUCTIONS: Patient was discharged home. Outpatient follow-up with hemodialysis as scheduled. Patient was encouraged to comply with medication regimen and hemodialysis schedule. I have been assigned to dictate discharge summary for this account. I was not involved in the patient's management. Alexa Carter NP Apr 22, 2020 11:52
== END 2020-04-20 20:05 | disposition home or self-care (01) | DRG 199 ==
LOC: EMR 08:00 → 2E 13:00 → EDBEDREQ 14:48
PROC: 5A1D70Z Performance of Urinary Filtration, Intermittent, Less than 6 Hours Per Day (ICD-10-PCS; principal; 2020-04-19)
DX: I16.0 Hypertensive urgency (principal); I12.0 Hypertensive chronic kidney disease with stage 5 chronic kidney disease or end stage renal disease; N18.6 End stage renal disease; E11.65 Type 2 diabetes mellitus with hyperglycemia; E11.22 Type 2 diabetes mellitus with diabetic chronic kidney disease; Z99.2 Dependence on renal dialysis; Z91.14 Patient's other noncompliance with medication regimen
CPT/HCPCS: 36415; 71045; 80048; 80053; 82962; 85025; 86706; 87081; 93005; 96374; 99285; J1815; J8499; S5561